=== PATIENT | male | born 1935 ===

== ENCOUNTER 2016-11-13 14:03 | Inpatient (IN) | payer MEDICARE, OTHER ==
--- NOTE | 2016-11-13 14:34 | ED PDOC ---
HPI: Abdomen Time Seen by Provider: 11/13/16 14:25 Chief Complaint (Nursing): Abdominal Pain Chief Complaint (Provider): Abdominal Pain History Per: Patient History/Exam Limitations: no limitations Onset/Duration Of Symptoms: Days Current Symptoms Are (Timing): Still Present Severity: Moderate Location Of Pain/Discomfort: Diffuse Quality Of Discomfort: "Pain" Associated Symptoms: Diarrhea, Urinary Symptoms Exacerbating Factors: None Additional Complaint(s): Patient is a 81 year old male brought to ED by family for evaluation of urinary retention and diarrhea for 2-3 days. As per daughter at bedside, patient has his suprapubic catheter changed 3 days ago, after it was changed was when the symptoms began. Denies fever, chills, nausea or vomiting. Reports abdominal pain with distention, diarrhea is watery but non bloody PMD: Dr. Denney Past Medical History Reviewed: Historical Data, Nursing Documentation, Vital Signs Vital Signs: Last Vital Signs Temp 98.1 F 11/14/16 20:05 Pulse 82 11/14/16 20:05 Resp 18 11/14/16 20:05 BP 136/76 11/14/16 20:05 Pulse Ox 100 11/14/16 20:05 - Medical History PMH: HTN Other PMH: Urinary retention - Surgical History Surgical History: Appendectomy, Cholecystectomy, Pacemaker Other surgeries: open heart - Family History Family History: States: No Known Family Hx - Living Arrangements Living Arrangements: With Family - Home Medications Home Medications: Ambulatory Orders Medication Instructions Recorded ALPRAZolam [Xanax] 1 mg PO BID PRN 11/13/16 Albuterol HFA [Ventolin HFA 90 2 puff IH Q4H PRN 11/13/16 mcg/actuation (8 g)] Albuterol/Ipratropium [Duoneb 3 3 ml IH Q6H PRN 11/13/16 mg/0.5 mg (3 ml) UD] Aspirin [Ecotrin] 81 mg PO DAILY 11/13/16 Atorvastatin [Lipitor] 20 mg PO HS 11/13/16 DULoxetine [Cymbalta] 30 mg PO DAILY 11/13/16 Folic Acid [Folic Acid] 1 mg PO DAILY 11/13/16 Lactobacillus Combination No.8 1 cap PO DAILY 11/13/16 [Adult Probiotic] Memantine HCl [Namenda Xr] 28 mg PO DAILY 11/13/16 Metoprolol Succinate [Metoprolol 50 mg PO DAILY 11/13/16 Succinate] Nitroglycerin 0.2 mg/hr [Nitro-Dur 1 patch TD DAILY 11/13/16 0.2 mg/hr Patch] Tamsulosin [Flomax] 0.4 mg PO HS 11/13/16 metroNIDAZOLE [Flagyl] 500 mg PO Q8H 11/13/16 - Allergies Allergies/Adverse Reactions: Allergies Allergy/AdvReac Type Severity Reaction Status Date / Time Penicillins Allergy Verified 11/13/16 14:44 Review of Systems ROS Statement: Except As Marked, All Systems Reviewed And Found Negative Constitutional: Negative for: Fever, Chills Gastrointestinal: Positive for: Abdominal Pain, Diarrhea. Negative for: Nausea , Vomiting Physical Exam - Reviewed Nursing Documentation Reviewed: Yes Vital Signs Reviewed: Yes - Physical Exam Appears: Positive for: Non-toxic, No Acute Distress Skin: Positive for: Normal Color, Warm Eye Exam: Positive for: Normal appearance Neck: Positive for: Normal, Painless ROM Cardiovascular/Chest: Positive for: Regular Rate, Rhythm. Negative for: Murmur Respiratory: Positive for: Normal Breath Sounds. Negative for: Respiratory Distress Gastrointestinal/Abdominal: Positive for: Tenderness (suprapubic), Distended ( mild), Other (Suprapubic cathetor in place) Back: Positive for: Normal Inspection Extremity: Positive for: Normal ROM Neurologic/Psych: Positive for: Alert, Oriented - Laboratory Results Result Diagrams: 11/14/16 06:05 11/14/16 06:05 - ECG O2 Sat by Pulse Oximetry: 100 (RA) Pulse Ox Interpretation: Normal Medical Decision Making Medical Decision Making: Time: 1430 Initial impression: Urinary retention, Catheter dislodgment. Diarrhea r/o colitis and diverticulitis Initial plan: -- CT-abdomen -- CMP -- Urine dip -- CBC -- NSF and Morphine -- Garza Cath change Time: 1500 Patient to be signed out by Dr. Amador pending CT, labs and catheter replacement. Scribe Attestation: Documented by Daylin Trinh acting as a scribe for Panchito Boswell MD MD Scribe Attestation: All medical record entries made by the Scribe were at my direction and personally dictated by me. I have reviewed the chart and agree that the record accurately reflects my personal performance of the history, physical exam, medical decision making, and the department course for this patient. I have also personally directed, reviewed, and agree with the discharge instructions and disposition. Disposition - Clinical Impression Clinical Impression: Colitis, Dehydration, UTI (urinary tract infection), Urinary retention - Patient ED Disposition Is Patient to be Admitted: Transfer of Care - Disposition Disposition: Transfer of Care Disposition Time: 15:00 Condition: FAIR Patient Signed Over To: Roxana Amador Handoff Comments: pending CT abd, labs, and final disposition
[2016-11-13] MEDS ORDERED: Iohexol 240 (50 ml) PO ONE (14:54)
[2016-11-13] MEDS ORDERED: Sodium Chloride 0.9% 1,000 ML IV STA ×2 (14:55→19:30)
--- NOTE | 2016-11-13 15:19 | ED PDOC ---
- Laboratory Results Result Diagrams: 11/13/16 15:10 11/13/16 15:10 - ECG O2 Sat by Pulse Oximetry: 100 (RA) Medical Decision Making Medical Decision Making: Time: 1500 Patient signed out by Dr. Flanagan pending ED work up and disposition. UA demonstrates nitrates, ketones, large leuks. Pending CT. Accession No. : [id number] Patient Name / ID : HALEY ENAMORADO / [id number] Exam Date : 11/13/2016 17:36:45 ( Approved ) Study Comment : Sex / Age : M / [id number] Creator : Boom Godwin MD Dictator : Boom Godwin MD Equal Opportunity Assistant : Mathematical Statistician : Boom Godwin MD Approver2 : Report Date : 11/13/2016 18:28:32 My Comment : PROCEDURE: CT Abdomen and Pelvis with contrast HISTORY: abdominal pain diarrhea COMPARISON: None. TECHNIQUE: Contrast dose: 90 cc of Omni 300 Radiation dose: Total exam DLP = 569 mGy-cm. This CT exam was performed using one or more of the following dose reduction techniques: Automated exposure control, adjustment of the mA and/or kV according to patient size, and/or use of iterative reconstruction technique. FINDINGS: LOWER THORAX: Moderate size left effusion LIVER: Multiple cysts are seen in the liver. GALLBLADDER AND BILE DUCTS: Gallbladder removed PANCREAS: Unremarkable. No gross lesion or ductal dilatation. SPLEEN: Unremarkable. ADRENALS: Unremarkable. No mass. KIDNEYS AND URETERS: Unremarkable. No hydronephrosis. No solid mass. VASCULATURE: Unremarkable. No aortic aneurysm. BOWEL: There is mural thickening and edema in the bowel wall of the descending and sigmoid colon consistent with colitis. The transverse and ascending colon are unremarkable. Findings are most severe in the sigmoid and rectum. APPENDIX: Normal appendix. PERITONEUM: Unremarkable. No free fluid. No free air. LYMPH NODES: Unremarkable. No enlarged lymph nodes. BLADDER: There is a balloon tipped suprapubic catheter in the bladder. REPRODUCTIVE: Unremarkable. BONES: No acute fracture. OTHER FINDINGS: None. IMPRESSION: Moderate to severe colitis involving the left side of the colon DW family findings and plan of care. Pt has h/o episodes of c diff colitis over that last few months. Will take course of antibiotics and get better, but then symptoms return. Previous hospitalizations have been in [facility]. Pt scheduled for surgery with Dr York Thursday and had urinary cath issue, which is why they presented here. DW family findings and need for hospitalization given extensive radiologic findings of colitis. Scribe Attestation: Documented by Daylin Trinh acting as a scribe for Roxana Amador MD MD Scribe Attestation: All medical record entries made by the Scribe were at my direction and personally dictated by me. I have reviewed the chart and agree that the record accurately reflects my personal performance of the history, physical exam, medical decision making, and the department course for this patient. I have also personally directed, reviewed, and agree with the discharge instructions and disposition. Disposition Discussed With DrMilo: Yash Mccloud Comment: Covering for PMD Doctor Will See Patient In The: Hospital Counseled Patient/Family Regarding: Studies Performed, Diagnosis - Clinical Impression Clinical Impression: Colitis, Dehydration, UTI (urinary tract infection), Urinary retention - POA Present On Arrival: None - Disposition Disposition: Admitted as In-Patient Disposition Time: 18:45 Condition: SERIOUS
[2016-11-13] MEDS ORDERED: Iohexol 240 (50 ml) ONE (15:20)
[2016-11-13 15:41] LABS: BASO % 0.3 % (0.0-2.0); EOS # 0.1 K/uL (0.0-0.7); EOS % 1.4 % (0.0-4.0); HEMATOCRIT 42.6 % (35.0-51.0); LYMPH % 10.1 % (20.0-40.0); MEAN CELL VOLUME 93.5 fl (80.0-94.0); MEAN CORPUSCULAR HEMOGLOBIN 30.2 pg (27.0-31.0); MEAN CORPUSCULAR HGB CONC 32.3 g/dL (33.0-37.0); MEAN PLATELET VOLUME 8.9 fl (7.2-11.7); MONO # 0.6 K/uL (0.0-0.8); NEUT # 8.1 K/uL (1.8-7.0); NEUT % 82.2 % (50.0-75.0); RED CELL DISTRIBUTION WIDTH 15.6 % (11.5-14.5); WHITE BLOOD COUNT 9.9 K/uL (4.8-10.8)
[2016-11-13 15:45] LABS: ALKALINE PHOSPHATASE 104 U/L (38-126); ALT/SGPT 12 U/L (21-72); AST/SGOT 22 U/L (17-59); BILIRUBIN,TOTAL 0.8 mg/dl (0.2-1.3); BLOOD UREA NITROGEN 11 mg/dl (9-20); CALCIUM 8.9 mg/dL (8.4-10.2); CARBON DIOXIDE 24 mmol/L (22-30); CHLORIDE 104 mmol/L (98-107); GFR AFRICAN-AMERICAN > 60; GLUCOSE,RANDOM 110 mg/dL (75-110); POTASSIUM 3.7 MMOL/L (3.6-5.0); SODIUM 143 mmol/l (132-148); TOTAL PROTEIN 7.1 G/DL (6.3-8.2)
[2016-11-13] MEDS ORDERED: Iohexol 300 100 ML IJ ONE (17:21)
[2016-11-13] MEDS ORDERED: Sodium Chloride 0.9% 50 ML IV ONE (17:21)
[2016-11-13 17:28] LABS: RBC URINE 2584 /hpf (0-3); URINE BACTERIA OCC (<OCC); URINE BILIRUBIN NEGATIVE (NEGATIVE); URINE BLOOD LARGE (NEGATIVE); URINE COLOR AMBER (YELLOW); URINE GLUCOSE (UA) NEG (Normal); URINE KETONE TRACE mg/dL (NEGATIVE); URINE LEUKOCYTE ESTERASE MOD Leu/uL (Negative); URINE PROTEIN 100 mg/dL (NEGATIVE); URINE UROBILINOGEN 0.2-1.0 mg/dL (0.2-1.0); WBC URINE 434 /hpf (0-5)
[2016-11-13] MEDS ORDERED: Ciprofloxacin 400mg/200ml D5W 200 ML IV STA (17:36)
[2016-11-13] MEDS ORDERED: metroNIDAZOLE 500mg/100ml NS 100 ML IVPB STA (17:37)
--- NOTE | 2016-11-13 18:30 | CT ---
PROCEDURE: CT Abdomen and Pelvis with contrast HISTORY: abdominal pain diarrhea COMPARISON: None. TECHNIQUE: Contrast dose: 90 cc of Omni 300 Radiation dose: Total exam DLP = 569 mGy-cm. This CT exam was performed using one or more of the following dose reduction techniques: Automated exposure control, adjustment of the mA and/or kV according to patient size, and/or use of iterative reconstruction technique. FINDINGS: LOWER THORAX: Moderate size left effusion LIVER: Multiple cysts are seen in the liver. GALLBLADDER AND BILE DUCTS: Gallbladder removed PANCREAS: Unremarkable. No gross lesion or ductal dilatation. SPLEEN: Unremarkable. ADRENALS: Unremarkable. No mass. KIDNEYS AND URETERS: Unremarkable. No hydronephrosis. No solid mass. VASCULATURE: Unremarkable. No aortic aneurysm. BOWEL: There is mural thickening and edema in the bowel wall of the descending and sigmoid colon consistent with colitis. The transverse and ascending colon are unremarkable. Findings are most severe in the sigmoid and rectum. APPENDIX: Normal appendix. PERITONEUM: Unremarkable. No free fluid. No free air. LYMPH NODES: Unremarkable. No enlarged lymph nodes. BLADDER: There is a balloon tipped suprapubic catheter in the bladder. REPRODUCTIVE: Unremarkable. BONES: No acute fracture. OTHER FINDINGS: None. IMPRESSION: Moderate to severe colitis involving the left side of the colon
[2016-11-13] MEDS ORDERED: metroNIDAZOLE 500mg/100ml NS 0 ML IVPB ONE (18:42)
[2016-11-13] MEDS ORDERED: Ciprofloxacin 400mg/200ml D5W 200 ML IVPB ONE (18:42)
[2016-11-13] MEDS ORDERED: metroNIDAZOLE 500mg/100ml NS 100 ML IVPB ONE (19:59)
[2016-11-13] MEDS ORDERED: Dextrose 5%/Lactated Ringer's 1,000 ML IV SCH (22:00)
[2016-11-13] MEDS ORDERED: DiphenhydrAMINE 50 mg/ml Inj IVP PRN (22:00)
[2016-11-14] MEDS: metroNIDAZOLE 500mg/100ml NS 100 ML IVPB SCH ×3 (04:20→20:20)
[2016-11-14 07:45] LABS: HEMATOCRIT 37.1 % (35.0-51.0); MEAN CORPUSCULAR HEMOGLOBIN 30.4 pg (27.0-31.0); MEAN CORPUSCULAR HGB CONC 33.4 g/dL (33.0-37.0); RED CELL DISTRIBUTION WIDTH 14.9 % (11.5-14.5); WHITE BLOOD COUNT 6.1 K/uL (4.8-10.8)
[2016-11-14 07:51] LABS: ALB/GLOB RATIO 0.9 (1.0-2.1); ALKALINE PHOSPHATASE 86 U/L (38-126); ALT/SGPT 14 U/L (21-72); AST/SGOT 18 U/L (17-59); BILIRUBIN,TOTAL 0.5 mg/dl (0.2-1.3); BLOOD UREA NITROGEN 7 mg/dl (9-20); CALCIUM 8.1 mg/dL (8.4-10.2); CARBON DIOXIDE 22 mmol/L (22-30); CHLORIDE 108 mmol/L (98-107); GFR AFRICAN-AMERICAN > 60; GLUCOSE,RANDOM 99 mg/dL (75-110); SODIUM 141 mmol/l (132-148); TOTAL PROTEIN 5.8 G/DL (6.3-8.2)
[2016-11-14 08:03] LABS: MEAN CELL VOLUME 90.9 fl (80.0-94.0)
[2016-11-14] MEDS: Ciprofloxacin 400mg/200ml D5W 200 ML IVPB SCH ×2 (09:21→20:20)
[2016-11-14] MEDS ORDERED: Potassium Chl 20 mEq in D5-NS 1,000 ML IV SCH (09:30)
[2016-11-14] MEDS ORDERED: D5W IV SCH (09:33)
[2016-11-14] MEDS ORDERED: DEXTROSE IV SCH (09:33)
[2016-11-14] MEDS ORDERED: NS IV SCH (09:33)
[2016-11-14] MEDS ORDERED: POTASSIUM CH IV SCH (09:33)
--- NOTE | 2016-11-14 10:05 | CP.PCM.HP ---
<Renee Ho - Last Filed: 11/14/16 20:39> History of Present Illness - History of Present Illness History of Present Illness: 81M seen and examined at bedside with attending. Pt was admitted overnight for colitis. Pt evaluated this morning and history provided by patient as well as daughter. He developed mild loose stool mixed with mucous about 3-4 days ago and then began having abdominal pain "everywhere " with associated "feeling full" but denies any fevers, chills, nausea, vomiting. As per pt he has had some shortness of breath and states he had formed stool overnight. As per daughter he was recently treated for pneumonia. He has had multiple episodes of c. diff and has an extensive cardiac history. Recently had suprapubic catheter placed and has scheduled prostate surgery 11/[address] York. As per PMD, Dr Brown, recently c. diff was positive as well as hemoccult blood. overnight: confused and pulled suprapubic catheter PMD: Dr Brown Urologist: Dr York PMH: DVT, HTN, HLD, mild dementia, hard of hearing PSH: CABG, IVC, AICD Lives with Current smoker ED COURSE afebrile, tachycardic, tachypneic CT abd/pelvis: no free air, LLL pleural effusion, multiple liver cysts, thickened sigmoid/rectum c. diff- NEG CBC: no anemia/leukocytosis, but left shift CMP: WNL UA: Nitrate+, Many RBCs, WBC+, Bacteria+, Yeast+ Present on Admission - Present on Admission Any Indicators Present on Admission: Yes History of DVT/PE: Yes History of Uncontrolled Diabetes: No Urinary Catheter: Yes Decubitus Ulcer Present: No Review of Systems - Review of Systems Review of Systems: As per HPI Past Patient History - Infectious Disease Hx of Infectious Diseases: None - Past Medical History & Family History Past Medical History?: Yes - Past Social History Smoking Status: Heavy Smoker > 10 Cigarettes Daily - CARDIAC Hx Cardiac Disorders: Yes Hx Hypertension: Yes Other/Comment: hyperlipidemia - PULMONARY Hx Respiratory Disorders: Yes Hx Pneumonia: Yes - NEUROLOGICAL Hx Neurological Disorder: Yes Hx Dementia: Yes - RENAL Hx Chronic Kidney Disease: No - ENDOCRINE/METABOLIC Hx Endocrine Disorders: No - HEMATOLOGICAL/ONCOLOGICAL Hx Blood Disorders: Yes Hx Shingles: Yes - INTEGUMENTARY Hx Dermatological Problems: No - MUSCULOSKELETAL/RHEUMATOLOGICAL Hx Musculoskeletal Disorders: Yes Hx Falls: Yes - GASTROINTESTINAL Hx Gastrointestinal Disorders: No - GENITOURINARY/GYNECOLOGICAL Hx Genitourinary Disorders: Yes Hx Prostate Problems: Yes Hx Urinary Tract Infection: Yes Other/Comment: Urinary retention - PSYCHIATRIC Hx Psychophysiologic Disorder: No Hx Substance Use: No - SURGICAL HISTORY Hx Surgeries: Yes Hx Angioplasty: Yes Hx Appendectomy: Yes Hx Cholecystectomy: Yes Hx Coronary Artery Bypass Graft: Yes Hx Open Heart Surgery: Yes - ANESTHESIA Hx Anesthesia: Yes Hx Anesthesia Reactions: No Meds Allergies/Adverse Reactions: Allergies Allergy/AdvReac Type Severity Reaction Status Date / Time Penicillins Allergy Verified 11/13/16 14:44 Physical Exam - Constitutional Appears: Non-toxic, No Acute Distress - Head Exam Head Exam: ATRAUMATIC, NORMAL INSPECTION - Eye Exam Eye Exam: EOMI, Normal appearance - ENT Exam ENT Exam: Mucous Membranes Dry, Normal Exam - Neck Exam Neck exam: Positive for: Full Rom, Normal Inspection - Respiratory Exam Respiratory Exam: Decreased Breath Sounds (Left base), Rhonchi (diffuse but primarily DEBBIE), NORMAL BREATHING PATTERN. absent: Wheezes - Cardiovascular Exam Cardiovascular Exam: REGULAR RHYTHM. absent: JVD - GI/Abdominal Exam GI & Abdominal Exam: Guarding (voluntary), Soft, Tenderness (diffusely ttp throughout) - Exam Exam: absent: NORMAL INSPECTION (suprapubic site patent, tube had been inadvertently removed) - Extremities Exam Extremities exam: Positive for: full ROM, normal capillary refill, pedal pulses present (Rt-2+, Lt-1+). Negative for: pedal edema - Neurological Exam Neurological exam: Alert - Psychiatric Exam Psychiatric exam: Normal Affect, Normal Mood - Skin Skin Exam: Dry, Warm Results - Vital Signs Recent Vital Signs: Last Vital Signs Temp 36.9 C 11/14/16 07:31 Pulse 75 11/14/16 07:31 Resp 20 11/14/16 07:31 BP 122/76 11/14/16 07:31 Pulse Ox 97 11/14/16 07:31 - Labs Result Diagrams: 11/14/16 06:05 11/14/16 06:05 Labs: Laboratory Results - last 24 hr 11/13/16 11/13/16 11/14/16 19:10 19:36 06:05 WBC 6.1 RBC 4.08 L Hgb 12.4 Hct 37.1 MCV 90.9 D MCH 30.4 MCHC 33.4 RDW 14.9 H Plt Count 149 Sodium 141 Potassium 3.0 L Chloride 108 H Carbon Dioxide 22 Anion Gap 14 BUN 7 L Creatinine 0.8 Est GFR ( Amer) > 60 Est GFR (Non-Af Amer) > 60 Random Glucose 99 Lactic Acid 2.1 Calcium 8.1 L Total Bilirubin 0.5 AST 18 ALT 14 L Alkaline Phosphatase 86 Total Protein 5.8 L Albumin 2.7 L D Globulin 3.1 Albumin/Globulin Ratio 0.9 L C. difficile Ag & Toxin Negative Assessment & Plan (1) Colitis Assessment and Plan: Recurrent non-resolving c. diff infection likely the cause for "negative" c. diff results as patient was taking Flagyl. Non-peritoneal but diffusely ttp. Depending on how many episodes may want to consider more aggressive measures for eradication. - GI Consult (Dr Pickering) appreciated - NPO EXCEPT medications - Maintenance IVF - Vancomycin 125mg, PO, Q6H - Questron 4g, PO, Daily - Repeat c.diff testing 2x more - Will consider d/c of Cipro if strictly 2/2 inadequate c. diff eradication - Pain control Status: Acute (2) Pleural effusion on left Assessment and Plan: Noted on abd/pelvis CT, followed up with non-con CT chest which showed large LEFT pleural effusion with compressive atelectasis and bullous emphysema. - Pulmonary Consult (Dr Beltre) appreciated - IR consult for Thoracentesis early next week - Oxygen to maintain SpO2 > 90% (significant cardiac hx) Status: Acute Priority: High (3) UTI (urinary tract infection) Assessment and Plan: Unclear whether this is colonization vs. active infection. Patient currently on Cipro so will follow up on CFUs and adjust accordingly. - c/w Cipro as bystander abx, adjust as appropriate - f/u UCx - Trend fever curve as applicable Status: Acute (4) DVT prophylaxis Assessment and Plan: Pt high risk and has IVC, however placed on prophylaxis. - Heparin 5,000U, SC, Q8H Status: Acute (5) CAD (coronary artery disease) Assessment and Plan: Hx CABG, AICD, asymptomatic. Ordered EKG as none available to provide baseline - c/w Statin 20mg, PO, qHS - c/w Nitro TD Daily - Lopressor 50mg, PO, Q12H - f/u EKG Status: Chronic (6) COPD (chronic obstructive pulmonary disease) Assessment and Plan: Current every day heavy smoker, CT showing bullous emphysema. - c/w DuoNebs - c/w Ventolin Status: Chronic (7) Dementia Assessment and Plan: Appears to be very mild with some forgetfulness - c/w Cymbalta - c/w Namenda Status: Chronic (8) BPH (benign prostatic hypertrophy) Assessment and Plan: Requiring suprapubic catheter, scheduled for TURP(?) 11/[address] York. - Urology Consult (Dr York) appreciated: replaced suprapubic catheter - c/w FloMax Status: Chronic <Yash Mccloud - Last Filed: 11/16/16 23:01> Results - Vital Signs Recent Vital Signs: Last Vital Signs Temp 97.3 F L 11/16/16 16:51 Pulse 73 11/16/16 16:51 Resp 18 11/16/16 16:51 BP 120/58 L 11/16/16 16:51 Pulse Ox 96 11/16/16 16:51 - Labs Result Diagrams: 11/15/16 05:30 11/15/16 05:30 Assessment & Plan - Assessment and Plan (Free Text) Plan: I was present during the evaluation and personally examined the patient and discussed the plans and management with Dr Ho. Yash Mccloud M.D.
[2016-11-14] MEDS: Potassium CL 10 MEQ/50 ML 50 ML IVPB SCH ×4 (10:36→16:51)
--- NOTE | 2016-11-14 12:49 | CP.PCM.CON ---
History of Present Illness - History of Present Illness History of Present Illness: This 81 year old male, a current cigarette smoker, was admitted with abdominal pain and found to have a left sided pleural effusion with LLL basal consolidation on a CT that was done of the abdomen. He does have a cough according to his daughter with mild SOB. he denies any chest pain or sputum production. He did have an episode of pneumonia recently that was treated without complications. There has been no documented fever or chills, but he does complain of fatigue. Past Patient History - Infectious Disease Hx of Infectious Diseases: None - Past Medical History & Family History Past Medical History?: Yes - Past Social History Smoking Status: Heavy Smoker > 10 Cigarettes Daily Chewing Tobacco Use: No Cigar Use: No Alcohol: None Drugs: Denies Home Situation {Lives}: With Family - CARDIAC Hx Cardiac Disorders: Yes Hx Hypertension: Yes Other/Comment: hyperlipidemia - PULMONARY Hx Respiratory Disorders: Yes Hx Pneumonia: Yes - NEUROLOGICAL Hx Neurological Disorder: Yes Hx Dementia: Yes - RENAL Hx Chronic Kidney Disease: No - ENDOCRINE/METABOLIC Hx Endocrine Disorders: No - HEMATOLOGICAL/ONCOLOGICAL Hx Blood Disorders: Yes Hx Shingles: Yes - INTEGUMENTARY Hx Dermatological Problems: No - MUSCULOSKELETAL/RHEUMATOLOGICAL Hx Musculoskeletal Disorders: Yes Hx Falls: Yes - GASTROINTESTINAL Hx Gastrointestinal Disorders: No - GENITOURINARY/GYNECOLOGICAL Hx Genitourinary Disorders: Yes Hx Prostate Problems: Yes Hx Urinary Tract Infection: Yes Other/Comment: Urinary retention - PSYCHIATRIC Hx Psychophysiologic Disorder: No Hx Substance Use: No - SURGICAL HISTORY Hx Surgeries: Yes Hx Angioplasty: Yes Hx Appendectomy: Yes Hx Cholecystectomy: Yes Hx Coronary Artery Bypass Graft: Yes Hx Open Heart Surgery: Yes - ANESTHESIA Hx Anesthesia: Yes Hx Anesthesia Reactions: No Meds Allergies/Adverse Reactions: Allergies Allergy/AdvReac Type Severity Reaction Status Date / Time Penicillins Allergy Verified 11/13/16 14:44 - Medications Medications: Current Medications Cholestyramine Resin (Questran) 4 gm PO DAILY [facility] Heparin Sodium (Porcine) (Heparin) 5,000 units SC Q8 MICHELLE PRN Reason: Protocol Last Admin: 11/14/16 10:37 Dose: 5,000 units Ciprofloxacin (Cipro 400mg/200ml Dsw) 200 mls @ 200 mls/hr IVPB Q12 MICHELLE Last Admin: 11/14/16 09:21 Dose: 200 mls/hr Metronidazole (Flagyl 500mg/100ml Ns) 100 mls @ 100 mls/hr IVPB Q8H [facility] Last Admin: 11/14/16 04:20 Dose: 100 mls/hr Potassium Chloride (Potassium Cl 10meq/50ml Sterile Water) 50 mls @ 50 mls/hr IVPB Q1 [facility] Stop: 11/14/16 13:59 Last Admin: 11/14/16 10:36 Dose: 50 mls/hr Potassium Chloride/Dextrose 20 (ml/ Dextrose/Sodium Chloride) 1,020 mls @ 100 mls/hr IV .[id number] [facility] Morphine Sulfate (Morphine) 4 mg IVP Q4 PRN PRN Reason: Pain, moderate (4-7) Pantoprazole Sodium (Protonix Inj) 40 mg IVP DAILY [facility] Last Admin: 11/14/16 09:22 Dose: 40 mg Vancomycin HCl (Vancocin (Oral/Rectal Use)) 250 mg PO Q6H [facility] Physical Exam - Additional Findings Additional findings: Well nourished, well developed, appears comfortable at rest. No cyanosis or dependant edema. No calf tenderness. Neck is supple and trachea midline. No visible JVD. Pharynx is pink and moist. No palpable neck or axillary adenopathy. Dullness noted on percussion of the left lung base with absent VTF in the same area. Breath sounds are absent in the left base, a pleural rub is auscultated on the left lower, lateral chest. No bronchial breath sounds or wheezing. few sonorous rhonchi in LLL. few medium rales. PPM in left upper anterior chest wall. Heart sounds seem distant and rhythm regular. Abdomen appears distended and tender to palpation. Results - Vital Signs Recent Vital Signs: Last Vital Signs Temp 98.4 F 11/14/16 07:31 Pulse 75 11/14/16 07:31 Resp 20 11/14/16 07:31 BP 122/76 11/14/16 07:31 Pulse Ox 97 11/14/16 07:31 - Labs Result Diagrams: 11/14/16 06:05 11/14/16 06:05 Labs: Laboratory Results - last 24 hr 11/13/16 11/13/16 11/14/16 19:10 19:36 06:05 WBC 6.1 RBC 4.08 L Hgb 12.4 Hct 37.1 MCV 90.9 D MCH 30.4 MCHC 33.4 RDW 14.9 H Plt Count 149 ESR 42 H APTT Sodium 141 Potassium 3.0 L Chloride 108 H Carbon Dioxide 22 Anion Gap 14 BUN 7 L Creatinine 0.8 Est GFR ( Amer) > 60 Est GFR (Non-Af Amer) > 60 Random Glucose 99 Lactic Acid 2.1 Calcium 8.1 L Total Bilirubin 0.5 AST 18 ALT 14 L Alkaline Phosphatase 86 Total Protein 5.8 L Albumin 2.7 L D Globulin 3.1 Albumin/Globulin Ratio 0.9 L C. difficile Ag & Toxin Negative 11/14/16 09:56 WBC RBC Hgb Hct MCV MCH MCHC RDW Plt Count ESR APTT 33.9 H Sodium Potassium Chloride Carbon Dioxide Anion Gap BUN Creatinine Est GFR ( Amer) Est GFR (Non-Af Amer) Random Glucose Lactic Acid Calcium Total Bilirubin AST ALT Alkaline Phosphatase Total Protein Albumin Globulin Albumin/Globulin Ratio C. difficile Ag & Toxin Assessment & Plan (1) Pleural effusion on left Status: Acute Priority: High (2) Pulmonary infiltrate present on computed tomography Status: Acute Priority: High - Assessment and Plan (Free Text) Plan: CT w/o contrast of the chest to determine extent of effusion and infiltrate. Agree with present antibiotic regimen. Will request thoracentesis if effusion is moderate. - Date & Time Date: 11/14/16 Time: 12:56
[2016-11-14] MEDS: Cholestyramine 4 gm/Pkt UD PO SCH (13:05)
[2016-11-14] MEDS: Vancomycin 500 mg (Oral/Rectal USE) PO SCH ×3 (13:09→23:38)
--- NOTE | 2016-11-14 15:56 | CT ---
PROCEDURE: CT Chest without contrast HISTORY: LEFT pleural effusion COMPARISON: None. TECHNIQUE: Contiguous axial images were obtained through the chest without intravenous contrast enhancement. Sagittal and coronal reconstructions were performed. Radiation dose (DLP): 368 mGy-cm. This CT exam was performed using one or more of the following dose reduction techniques: Automated exposure control, adjustment of the mA and/or kV according to patient size, and/or use of iterative reconstruction technique. FINDINGS: LUNGS: Large left pleural effusion with mild compressive atelectasis at the left base. Bullous emphysema. MEDIASTINUM: Unremarkable thoracic aorta. No aneurysm. Normal sized heart. Main pulmonary artery unremarkable. No vascular congestion. No lymphadenopathy. Pacemaker and leads in place. PLEURA: See above. BONES: No fracture. No destructive lesion. UPPER ABDOMEN: Multiple hepatic cysts. OTHER FINDINGS: None. IMPRESSION: Large left pleural effusion with mild compressive atelectasis at the left base.
--- NOTE | 2016-11-14 15:58 | RAD ---
HISTORY: Left pleural effusion COMPARISON: No prior. TECHNIQUE: Chest PA and lateral FINDINGS: LUNGS: There is linear scarring in the right upper lobe. There is no focal consolidation. There is left lower lobe airspace disease. PLEURA: There is a moderate left pleural effusion. There is no pneumothorax or large right pleural effusion. CARDIOVASCULAR: The heart is normal in size. Status post CABG. There is a left-sided transvenous permanent pacing device. Atherosclerotic aortic arch calcifications are present. OSSEOUS STRUCTURES: No significant abnormalities. VISUALIZED UPPER ABDOMEN: Normal. OTHER FINDINGS: None. IMPRESSION: Moderate left pleural effusion. Underlying pneumonia cannot be excluded. Follow-up PA and lateral radiographs are recommended.
[2016-11-14] MEDS: Potassium Chl 20 mEq in D5-NS 1,000 ML IV SCH (16:45)
[2016-11-14] MEDS ORDERED: Albuterol-Ipratrop 3 mg / 0.5 (3 ml) UD IH PRN (17:43)
[2016-11-14] MEDS ORDERED: Albuterol HFA 90 mcg/actuation (8 g) IH PRN (17:43)
--- NOTE | 2016-11-14 19:21 | CP.PCM.CON ---
History of Present Illness - History of Present Illness History of Present Illness: 81 yo male admitted with midabdominal pain and abnormal CT Review of Systems - Constitutional Constitutional: Chills - EENT Eyes: absent: Blurred Vision Ears: absent: Decreased Hearing - Cardiovascular Cardiovascular: absent: Chest Pain - Respiratory Respiratory: absent: Dyspnea - Gastrointestinal Gastrointestinal: As Per HPI Past Patient History - Infectious Disease Hx of Infectious Diseases: None - Past Medical History & Family History Past Medical History?: Yes - Past Social History Smoking Status: Heavy Smoker > 10 Cigarettes Daily Chewing Tobacco Use: No Cigar Use: No Alcohol: None Drugs: Denies Home Situation {Lives}: With Family - CARDIAC Hx Cardiac Disorders: Yes Hx Hypertension: Yes Other/Comment: hyperlipidemia - PULMONARY Hx Respiratory Disorders: Yes Hx Pneumonia: Yes - NEUROLOGICAL Hx Neurological Disorder: Yes Hx Dementia: Yes - RENAL Hx Chronic Kidney Disease: No - ENDOCRINE/METABOLIC Hx Endocrine Disorders: No - HEMATOLOGICAL/ONCOLOGICAL Hx Blood Disorders: Yes Hx Shingles: Yes - INTEGUMENTARY Hx Dermatological Problems: No - MUSCULOSKELETAL/RHEUMATOLOGICAL Hx Musculoskeletal Disorders: Yes Hx Falls: Yes - GASTROINTESTINAL Hx Gastrointestinal Disorders: No - GENITOURINARY/GYNECOLOGICAL Hx Genitourinary Disorders: Yes Hx Prostate Problems: Yes Hx Urinary Tract Infection: Yes Other/Comment: Urinary retention - PSYCHIATRIC Hx Psychophysiologic Disorder: No Hx Substance Use: No - SURGICAL HISTORY Hx Surgeries: Yes Hx Angioplasty: Yes Hx Appendectomy: Yes Hx Cholecystectomy: Yes Hx Coronary Artery Bypass Graft: Yes Hx Open Heart Surgery: Yes - ANESTHESIA Hx Anesthesia: Yes Hx Anesthesia Reactions: No Meds Allergies/Adverse Reactions: Allergies Allergy/AdvReac Type Severity Reaction Status Date / Time Penicillins Allergy Verified 11/13/16 14:44 - Medications Medications: Current Medications Albuterol (Ventolin Hfa 90 Mcg/Actuation (8 G)) 2 puff IH Q4H PRN PRN Reason: Shortness of Breath Albuterol/Ipratropium (Duoneb 3 Mg/0.5 Mg (3 Ml) Ud) 3 ml IH RQ6 PRN PRN Reason: Shortness of Breath Aspirin (Ecotrin) 81 mg PO DAILY [facility] Atorvastatin Calcium (Lipitor) 20 mg PO HS [facility] Cholestyramine Resin (Questran) 4 gm PO DAILY [facility] Last Admin: 11/14/16 13:05 Dose: 4 gm Duloxetine HCl (Cymbalta) 30 mg PO DAILY [facility] Folic Acid (Folic Acid) 1 mg PO DAILY [facility] Heparin Sodium (Porcine) (Heparin) 5,000 units SC Q8 MCIHELLE PRN Reason: Protocol Last Admin: 11/14/16 16:45 Dose: 5,000 units Home Med (Memantine Hcl [Namenda Xr]) 28 mg PO DAILY [facility] Ciprofloxacin (Cipro 400mg/200ml Dsw) 200 mls @ 200 mls/hr IVPB Q12 [facility] Last Admin: 11/14/16 09:21 Dose: 200 mls/hr Metronidazole (Flagyl 500mg/100ml Ns) 100 mls @ 100 mls/hr IVPB Q8H [facility] Last Admin: 11/14/16 18:44 Dose: 100 mls/hr Potassium Chloride/Dextrose/Sod Cl (Potassium Chl 20 Meq In D5-Ns) 1,000 mls @ 100 mls/hr IV .Q10H [facility] Stop: 11/15/16 17:01 Last Admin: 11/14/16 16:45 Dose: 100 mls/hr Metoprolol Succinate (Toprol Xl) 50 mg PO DAILY [facility] Morphine Sulfate (Morphine) 4 mg IVP Q4 PRN PRN Reason: Pain, moderate (4-7) Nitroglycerin (Nitro-Dur 0.2 Mg/Hr Patch) 1 patch TD DAILY [facility] Pantoprazole Sodium (Protonix Inj) 40 mg IVP DAILY [facility] Last Admin: 11/14/16 09:22 Dose: 40 mg Tamsulosin HCl (Flomax) 0.4 mg PO HS [facility] Vancomycin HCl (Vancocin (Oral/Rectal Use)) 250 mg PO Q6H [facility] Last Admin: 11/14/16 17:00 Dose: 250 mg Physical Exam - Constitutional Appears: Well - Head Exam Head Exam: ATRAUMATIC - Eye Exam Eye Exam: EOMI - ENT Exam ENT Exam: Mucous Membranes Moist - Respiratory Exam Respiratory Exam: Clear to Auscultation Bilateral - Cardiovascular Exam Cardiovascular Exam: REGULAR RHYTHM - GI/Abdominal Exam GI & Abdominal Exam: Normal Bowel Sounds, Soft, Tenderness Results - Vital Signs Recent Vital Signs: Last Vital Signs Temp 98.3 F 11/14/16 16:03 Pulse 50 L 11/14/16 16:03 Resp 18 11/14/16 16:03 BP 128/61 11/14/16 17:00 Pulse Ox 100 11/14/16 16:03 - Labs Result Diagrams: 11/14/16 06:05 11/14/16 06:05 Labs: Laboratory Results - last 24 hr 11/13/16 11/13/16 11/14/16 19:10 19:36 06:05 WBC 6.1 RBC 4.08 L Hgb 12.4 Hct 37.1 MCV 90.9 D MCH 30.4 MCHC 33.4 RDW 14.9 H Plt Count 149 ESR 42 H APTT Sodium 141 Potassium 3.0 L Chloride 108 H Carbon Dioxide 22 Anion Gap 14 BUN 7 L Creatinine 0.8 Est GFR ( Amer) > 60 Est GFR (Non-Af Amer) > 60 Random Glucose 99 Lactic Acid 2.1 Calcium 8.1 L Total Bilirubin 0.5 AST 18 ALT 14 L Alkaline Phosphatase 86 Total Protein 5.8 L Albumin 2.7 L D Globulin 3.1 Albumin/Globulin Ratio 0.9 L C. difficile Ag & Toxin Negative 11/14/16 09:56 WBC RBC Hgb Hct MCV MCH MCHC RDW Plt Count ESR APTT 33.9 H Sodium Potassium Chloride Carbon Dioxide Anion Gap BUN Creatinine Est GFR ( Amer) Est GFR (Non-Af Amer) Random Glucose Lactic Acid Calcium Total Bilirubin AST ALT Alkaline Phosphatase Total Protein Albumin Globulin Albumin/Globulin Ratio C. difficile Ag & Toxin Assessment & Plan (1) Colitis Assessment and Plan: Likely infectious. Agree with cipro/flagyl Status: Acute
[2016-11-15] MEDS: Potassium Chl 20 mEq in D5-NS 1,000 ML IV SCH ×2 (04:22→13:03)
[2016-11-15] MEDS: Vancomycin 500 mg (Oral/Rectal USE) PO SCH ×4 (06:06→22:57)
[2016-11-15] MEDS: metroNIDAZOLE 500mg/100ml NS 100 ML IVPB SCH ×3 (06:09→20:33)
[2016-11-15 07:09] LABS: MEAN CELL VOLUME 92.7 fl (80.0-94.0); MEAN CORPUSCULAR HEMOGLOBIN 30.1 pg (27.0-31.0); MEAN CORPUSCULAR HGB CONC 32.4 g/dL (33.0-37.0); RED CELL DISTRIBUTION WIDTH 15.3 % (11.5-14.5); WHITE BLOOD COUNT 4.1 K/uL (4.8-10.8)
[2016-11-15 07:27] LABS: BLOOD UREA NITROGEN 4 mg/dl (9-20); CALCIUM 7.9 mg/dL (8.4-10.2); CARBON DIOXIDE 26 mmol/L (22-30); CHLORIDE 110 mmol/L (98-107); GFR AFRICAN-AMERICAN > 60; GLUCOSE,RANDOM 106 mg/dL (75-110); POTASSIUM 3.3 MMOL/L (3.6-5.0); SODIUM 145 mmol/l (132-148)
[2016-11-15] MEDS: Ciprofloxacin 400mg/200ml D5W 200 ML IVPB SCH ×2 (09:15→20:33)
[2016-11-15] MEDS: Metoprolol Succinate 50 mg XL Tab PO SCH (09:16)
[2016-11-15] MEDS: Nitroglycerin 0.2 mg/hr Top Patch TD SCH (09:16)
[2016-11-15] MEDS: Cholestyramine 4 gm/Pkt UD PO SCH (09:24)
--- NOTE | 2016-11-15 13:02 | CP.PCM.PN ---
Subjective - Date & Time of Evaluation Date of Evaluation: 11/14/16 Time of Evaluation: 13:00 - Subjective Subjective: UROLOGY called to assess patient for sudden removal of a suprapubic tube. He was moving in his bed and inadvertantly pulled out this sp tube. He has a history of acute urine retention and is scheduled for green light laser of prostate this thursday. I replaced the suprapubic tube at this time. he also has alot of diarrhea suspect c diff. If this is the case then i will postpone the procedure till he is stable Objective - Vital Signs/Intake and Output Vital Signs (last 24 hours): Temp Pulse Resp BP Pulse Ox 97.3 F L 92 H 18 126/67 95 11/15/16 08:40 11/15/16 12:41 11/15/16 08:40 11/15/16 09:16 11/15/16 12:41 - Medications Medications: Current Medications Albuterol (Ventolin Hfa 90 Mcg/Actuation (8 G)) 2 puff IH Q4H PRN PRN Reason: Shortness of Breath Albuterol/Ipratropium (Duoneb 3 Mg/0.5 Mg (3 Ml) Ud) 3 ml IH RQ6 PRN PRN Reason: Shortness of Breath Aspirin (Ecotrin) 81 mg PO DAILY [facility] Atorvastatin Calcium (Lipitor) 20 mg PO HS [facility] Last Admin: 11/14/16 21:26 Dose: 20 mg Cholestyramine Resin (Questran) 4 gm PO DAILY [facility] Last Admin: 11/15/16 09:24 Dose: 4 gm Duloxetine HCl (Cymbalta) 30 mg PO DAILY [facility] Last Admin: 11/15/16 09:17 Dose: 30 mg Folic Acid (Folic Acid) 1 mg PO DAILY [facility] Last Admin: 11/15/16 09:17 Dose: 1 mg Heparin Sodium (Porcine) (Heparin) 5,000 units SC Q8 [facility] PRN Reason: Protocol Last Admin: 11/15/16 09:17 Dose: 5,000 units Home Med (Memantine Hcl [Namenda Xr]) 28 mg PO DAILY [facility] Ciprofloxacin (Cipro 400mg/200ml Dsw) 200 mls @ 200 mls/hr IVPB Q12 [facility] Last Admin: 11/15/16 09:15 Dose: 200 mls/hr Metronidazole (Flagyl 500mg/100ml Ns) 100 mls @ 100 mls/hr IVPB Q8H [facility] Last Admin: 11/15/16 06:09 Dose: 100 mls/hr Potassium Chloride/Dextrose/Sod Cl (Potassium Chl 20 Meq In D5-Ns) 1,000 mls @ 100 mls/hr IV .Q10H [facility] Stop: 11/15/16 17:01 Last Admin: 11/15/16 04:22 Dose: Not Given Metoprolol Succinate (Toprol Xl) 50 mg PO DAILY [facility] Last Admin: 11/15/16 09:16 Dose: 50 mg Morphine Sulfate (Morphine) 4 mg IVP Q4 PRN PRN Reason: Pain, moderate (4-7) Nitroglycerin (Nitro-Dur 0.2 Mg/Hr Patch) 1 patch TD DAILY [facility] Last Admin: 11/15/16 09:16 Dose: 1 patch Pantoprazole Sodium (Protonix Inj) 40 mg IVP DAILY [facility] Last Admin: 11/15/16 09:18 Dose: 40 mg Tamsulosin HCl (Flomax) 0.4 mg PO HS [facility] Last Admin: 11/14/16 21:26 Dose: 0.4 mg Vancomycin HCl (Vancocin (Oral/Rectal Use)) 250 mg PO Q6H [facility] Last Admin: 11/15/16 06:06 Dose: 250 mg - Labs Labs: 11/15/16 05:30 11/15/16 05:30 APTT 33.9 SECONDS (23.3-32.5) H 11/14/16 09:56
[2016-11-16] MEDS: metroNIDAZOLE 500mg/100ml NS 100 ML IVPB SCH ×3 (05:59→20:16)
[2016-11-16] MEDS: Vancomycin 500 mg (Oral/Rectal USE) PO SCH ×4 (06:00→22:43)
[2016-11-16] MEDS: Ciprofloxacin 400mg/200ml D5W 200 ML IVPB SCH ×2 (09:35→21:28)
[2016-11-16] MEDS: Nitroglycerin 0.2 mg/hr Top Patch TD SCH (09:39)
[2016-11-16] MEDS: Cholestyramine 4 gm/Pkt UD PO SCH (09:39)
[2016-11-16] MEDS: Metoprolol Succinate 50 mg XL Tab PO SCH (09:43)
[2016-11-16] MEDS ORDERED: Potassium Chloride 20 mEq/15 ml LIQ UD PO ONE (15:10)
--- NOTE | 2016-11-16 23:07 | CP.PCM.PN ---
Subjective - Date & Time of Evaluation Date of Evaluation: 11/15/16 Time of Evaluation: 09:15 - Subjective Subjective: Patient is comfortable Has no SOB CT scan of the chest showed large pleural effusion. stool fo C diff has been negative x 2 but had a discussion with PMD, Dr Curtis Brown and a recent stool for C diff 2 days prior to hospitalization was positive, Patient was admitted multiple times to [facility] for recurrence of C diff. Objective - Vital Signs/Intake and Output Vital Signs (last 24 hours): Temp Pulse Resp BP Pulse Ox 97.3 F L 73 18 120/58 L 96 11/16/16 16:51 11/16/16 16:51 11/16/16 16:51 11/16/16 16:51 11/16/16 16:51 - Medications Medications: Current Medications Albuterol (Ventolin Hfa 90 Mcg/Actuation (8 G)) 2 puff IH Q4H PRN PRN Reason: Shortness of Breath Albuterol/Ipratropium (Duoneb 3 Mg/0.5 Mg (3 Ml) Ud) 3 ml IH RQ6 PRN PRN Reason: Shortness of Breath Aspirin (Ecotrin) 81 mg PO DAILY [facility] Atorvastatin Calcium (Lipitor) 20 mg PO HS [facility] Last Admin: 11/16/16 21:29 Dose: 20 mg Cholestyramine Resin (Questran) 4 gm PO DAILY [facility] Last Admin: 11/16/16 09:39 Dose: 4 gm Duloxetine HCl (Cymbalta) 30 mg PO DAILY [facility] Last Admin: 11/16/16 09:42 Dose: 30 mg Folic Acid (Folic Acid) 1 mg PO DAILY [facility] Last Admin: 11/16/16 09:42 Dose: 1 mg Heparin Sodium (Porcine) (Heparin) 5,000 units SC Q8 [facility] PRN Reason: Protocol Last Admin: 11/16/16 17:29 Dose: 5,000 units Home Med (Memantine Hcl [Namenda Xr]) 28 mg PO DAILY [facility] Last Admin: 11/16/16 11:30 Dose: 28 mg Ciprofloxacin (Cipro 400mg/200ml Dsw) 200 mls @ 200 mls/hr IVPB Q12 [facility] Last Admin: 11/16/16 21:28 Dose: 200 mls/hr Metronidazole (Flagyl 500mg/100ml Ns) 100 mls @ 100 mls/hr IVPB Q8H [facility] Last Admin: 11/16/16 20:16 Dose: 100 mls/hr Metoprolol Succinate (Toprol Xl) 50 mg PO DAILY [facility] Last Admin: 11/16/16 09:43 Dose: Not Given Nitroglycerin (Nitro-Dur 0.2 Mg/Hr Patch) 1 patch TD DAILY [facility] Last Admin: 11/16/16 09:39 Dose: Not Given Pantoprazole Sodium (Protonix Inj) 40 mg IVP DAILY [facility] Last Admin: 11/16/16 09:44 Dose: 40 mg Potassium Chloride (Potassium Chloride Oral Soln) 40 meq PO DAILY [facility] Tamsulosin HCl (Flomax) 0.4 mg PO HS [facility] Last Admin: 11/16/16 21:29 Dose: 0.4 mg Vancomycin HCl (Vancocin (Oral/Rectal Use)) 250 mg PO Q6H [facility] Last Admin: 11/16/16 22:43 Dose: 250 mg - Labs Labs: 11/15/16 05:30 11/15/16 05:30 APTT 33.9 SECONDS (23.3-32.5) H 11/14/16 09:56 - Eye Exam Eye Exam: Normal appearance - ENT Exam ENT Exam: Mucous Membranes Moist - Respiratory Exam Respiratory Exam: NORMAL BREATHING PATTERN - Cardiovascular Exam Cardiovascular Exam: REGULAR RHYTHM - GI/Abdominal Exam GI & Abdominal Exam: Normal Bowel Sounds - Neurological Exam Neurological Exam: Awake Assessment and Plan (1) Pleural effusion on left Status: Acute (2) UTI (urinary tract infection) Status: Acute (3) COPD (chronic obstructive pulmonary disease) Status: Chronic (4) Dementia Status: Chronic (5) Clostridium difficile colitis Status: Acute (6) MRSA (methicillin resistant Staphylococcus aureus) infection Status: Acute (7) Liver cyst Status: Acute - Assessment and Plan (Free Text) Plan: Cont meds IV antibiotics vanco po 250 q 6 hydrate follow up with pulmonary
--- NOTE | 2016-11-16 23:43 | CP.PCM.PN ---
Subjective - Date & Time of Evaluation Date of Evaluation: 11/16/16 Time of Evaluation: 11:45 - Subjective Subjective: Patient remains stable. Has no chest pain or SOB Stool exam from 11/15 was positive for H pylori. Objective - Vital Signs/Intake and Output Vital Signs (last 24 hours): Temp Pulse Resp BP Pulse Ox 97.3 F L 73 18 120/58 L 96 11/16/16 16:51 11/16/16 16:51 11/16/16 16:51 11/16/16 16:51 11/16/16 16:51 - Medications Medications: Current Medications Albuterol (Ventolin Hfa 90 Mcg/Actuation (8 G)) 2 puff IH Q4H PRN PRN Reason: Shortness of Breath Albuterol/Ipratropium (Duoneb 3 Mg/0.5 Mg (3 Ml) Ud) 3 ml IH RQ6 PRN PRN Reason: Shortness of Breath Aspirin (Ecotrin) 81 mg PO DAILY [facility] Atorvastatin Calcium (Lipitor) 20 mg PO HS [facility] Last Admin: 11/16/16 21:29 Dose: 20 mg Cholestyramine Resin (Questran) 4 gm PO DAILY [facility] Last Admin: 11/16/16 09:39 Dose: 4 gm Duloxetine HCl (Cymbalta) 30 mg PO DAILY [facility] Last Admin: 11/16/16 09:42 Dose: 30 mg Folic Acid (Folic Acid) 1 mg PO DAILY [facility] Last Admin: 11/16/16 09:42 Dose: 1 mg Heparin Sodium (Porcine) (Heparin) 5,000 units SC Q8 [facility] PRN Reason: Protocol Last Admin: 11/16/16 17:29 Dose: 5,000 units Home Med (Memantine Hcl [Namenda Xr]) 28 mg PO DAILY [facility] Last Admin: 11/16/16 11:30 Dose: 28 mg Ciprofloxacin (Cipro 400mg/200ml Dsw) 200 mls @ 200 mls/hr IVPB Q12 [facility] Last Admin: 11/16/16 21:28 Dose: 200 mls/hr Metronidazole (Flagyl 500mg/100ml Ns) 100 mls @ 100 mls/hr IVPB Q8H [facility] Last Admin: 11/16/16 20:16 Dose: 100 mls/hr Metoprolol Succinate (Toprol Xl) 50 mg PO DAILY [facility] Last Admin: 11/16/16 09:43 Dose: Not Given Nitroglycerin (Nitro-Dur 0.2 Mg/Hr Patch) 1 patch TD DAILY [facility] Last Admin: 11/16/16 09:39 Dose: Not Given Pantoprazole Sodium (Protonix Inj) 40 mg IVP DAILY [facility] Last Admin: 11/16/16 09:44 Dose: 40 mg Potassium Chloride (Potassium Chloride Oral Soln) 40 meq PO DAILY [facility] Tamsulosin HCl (Flomax) 0.4 mg PO HS [facility] Last Admin: 11/16/16 21:29 Dose: 0.4 mg Vancomycin HCl (Vancocin (Oral/Rectal Use)) 250 mg PO Q6H [facility] Last Admin: 11/16/16 22:43 Dose: 250 mg - Labs Labs: 11/15/16 05:30 11/15/16 05:30 APTT 33.9 SECONDS (23.3-32.5) H 11/14/16 09:56 - Head Exam Head Exam: NORMAL INSPECTION - Eye Exam Eye Exam: Normal appearance - Respiratory Exam Respiratory Exam: Clear to Ausculation Bilateral - Cardiovascular Exam Cardiovascular Exam: REGULAR RHYTHM - GI/Abdominal Exam GI & Abdominal Exam: Normal Bowel Sounds - Neurological Exam Neurological Exam: CN II-XII Intact - Skin Skin Exam: Intact Assessment and Plan (1) Pleural effusion on left Status: Acute (2) UTI (urinary tract infection) Status: Acute (3) COPD (chronic obstructive pulmonary disease) Status: Chronic (4) Dementia Status: Chronic (5) Clostridium difficile colitis Status: Acute (6) MRSA (methicillin resistant Staphylococcus aureus) infection Status: Acute (7) Liver cyst Status: Acute - Assessment and Plan (Free Text) Plan: Cont meds follow up with ID continue 250 mg q 6 vancomycin keith
[2016-11-17] MEDS: metroNIDAZOLE 500mg/100ml NS 100 ML IVPB SCH ×3 (04:31→21:17)
[2016-11-17] MEDS: Vancomycin 500 mg (Oral/Rectal USE) PO SCH ×4 (04:31→22:47)
[2016-11-17] MEDS: Ciprofloxacin 400mg/200ml D5W 200 ML IVPB SCH ×2 (09:45→22:44)
[2016-11-17] MEDS: Metoprolol Succinate 50 mg XL Tab PO SCH (09:46)
[2016-11-17] MEDS: Potassium Chloride 20 mEq/15 ml LIQ UD PO SCH (09:47)
[2016-11-17] MEDS: Cholestyramine 4 gm/Pkt UD PO SCH (09:47)
[2016-11-17] MEDS: Nitroglycerin 0.2 mg/hr Top Patch TD SCH (09:48)
[2016-11-17] MEDS ORDERED: Lidocaine 1% Inj (20ml) ONE (13:06)
--- NOTE | 2016-11-17 13:36 | PCM.SURG1 ---
Surgeon's Initial Post Op Note - Surgeon's Notes Surgeon: Ezra Martínez MD Systems Administration Analyst: NONE Type of Anesthesia: Local Pre-Operative Diagnosis: Left pleural effusion Operative Findings: US showed a moderate left pleural effusion Post-Operative Diagnosis: Left pleural effusion Operation Performed: US guided left thoracentesis. Specimen/Specimens Removed: 800 cc of straw colored fluid Estimated Blood Loss: EBL {In ML}: 0 Blood Products Given: N/A Drains Used: No Drains Post-Op Condition: Fair Date of Surgery/Procedure: 11/17/16 Time of Surgery/Procedure: 13:30
[2016-11-17 14:27] LABS: BODY FLUID TYPE PLEURAL
[2016-11-17 14:29] LABS: BASO % 0.9 % (0.0-2.0); EOS # 0.2 K/uL (0.0-0.7); EOS % 8.8 % (0.0-4.0); HEMATOCRIT 38.9 % (35.0-51.0); LYMPH # 0.8 K/uL (1.0-4.3); LYMPH % 28.3 % (20.0-40.0); MEAN CELL VOLUME 91.6 fl (80.0-94.0); MEAN CORPUSCULAR HEMOGLOBIN 30.4 pg (27.0-31.0); MEAN CORPUSCULAR HGB CONC 33.2 g/dL (33.0-37.0); MEAN PLATELET VOLUME 8.3 fl (7.2-11.7); MONO # 0.3 K/uL (0.0-0.8); MONO % 11.9 % (0.0-10.0); NEUT # 1.4 K/uL (1.8-7.0); NEUT % 50.1 % (50.0-75.0); NRBC % 0.1 % (0.0-0.0); WHITE BLOOD COUNT 2.7 K/uL (4.8-10.8)
[2016-11-17 14:36] LABS: ALB/GLOB RATIO 0.9 (1.0-2.1); ALKALINE PHOSPHATASE 64 U/L (38-126); ALT/SGPT 9 U/L (21-72); AST/SGOT 19 U/L (17-59); BILIRUBIN,TOTAL 0.3 mg/dl (0.2-1.3); CALCIUM 8.4 mg/dL (8.4-10.2); CARBON DIOXIDE 26 mmol/L (22-30); CHLORIDE 105 mmol/L (98-107); GFR AFRICAN-AMERICAN > 60; GLUCOSE,RANDOM 114 mg/dL (75-110); POTASSIUM 4.7 MMOL/L (3.6-5.0); SODIUM 141 mmol/l (132-148); TOTAL PROTEIN 5.5 G/DL (6.3-8.2)
[2016-11-17 14:43] LABS: BLOOD UREA NITROGEN 2 mg/dl (9-20)
--- NOTE | 2016-11-17 14:49 | RAD ---
PROCEDURE: CHEST RADIOGRAPH, 1 VIEW. Technique: Single view portable semi erect @ 13:45. HISTORY: Status post left thoracentesis. COMPARISON: 11/14/2016. Chest radiograph 11/14/2016 CT thorax FINDINGS: LUNGS: Stable consolidative changes left lower lobe. PLEURA: Stable left pleural effusion. No pneumothorax. CARDIOVASCULAR: No radiographic findings to suggest acute or significant cardiovascular disease. Position/ configuration of pacemaker device: Satisfactory. OSSEOUS STRUCTURES: No significant abnormalities. VISUALIZED UPPER ABDOMEN: Normal. OTHER FINDINGS: None. IMPRESSION: No significant interval change compared to the prior examination(s).
[2016-11-17 14:50] LABS: LDH,BODY FLUID 308 IU (NONE ESTABLISHED)
[2016-11-17 15:41] LABS: BF GROSS APPEARANCE CLEAR (CLEAR); BODY FLUID TOTAL COUNT 100 (0-0)
[2016-11-18] MEDS: metroNIDAZOLE 500mg/100ml NS 100 ML IVPB SCH ×3 (04:18→21:39)
[2016-11-18] MEDS: Vancomycin 500 mg (Oral/Rectal USE) PO SCH ×3 (04:40→16:28)
[2016-11-18 08:07] LABS: BLOOD UREA NITROGEN 3 mg/dl (9-20); CARBON DIOXIDE 23 mmol/L (22-30); CHLORIDE 106 mmol/L (98-107); GFR AFRICAN-AMERICAN > 60; GLUCOSE,RANDOM 100 mg/dL (75-110); POTASSIUM 3.5 MMOL/L (3.6-5.0); SODIUM 138 mmol/l (132-148)
--- NOTE | 2016-11-18 08:38 | PQF GENQUE ---
This form is a permanent part of the medical record 11/18/16 Dr Mccloud, After workup please clarify : 1) If the UTI is ruled in or out. 2) If the UTI is ruled in please clarify if it due to the suprapubic catheter, not suprapubic catheter related, other explanation or unable to determine. Patient with a suprapubic catheter which was changed 3 days ago as per the ER presents with abdominal pain, diarrhea and urine retention. H&P documentation of "UTI unclear whether this is colonization versus active infection". URINE CS : Enterobacter cloacae SSP and MRSA. Currently being treated for colitis as well. Treatment includes antibiotics. Clarification of your documentation is requested to better reflect the severity of illness and intensity of treatment of your patient. PHYSICIAN'S RESPONSE Based on your medical judgment of the clinical indicators outlined above please clarify the following: [] Practitioner response [] If unable to determine, please check the box, sign and date. Present On Admission (POA) Indicator: [] Present at the time of admission [] Not present at the time of admission [] Clinically Undetermined In responding to this query, please exercise your independent professional judgment. The fact that a question is asked does not imply that any particular answer is desired or expected. Thank you for your clarification on this documentation. If you have any questions please call:[phone] Medical Records * Thank you, Celia Mcmullen RN [facility]
[2016-11-18] MEDS: Nitroglycerin 0.2 mg/hr Top Patch TD SCH (09:18)
[2016-11-18] MEDS: Potassium Chloride 20 mEq/15 ml LIQ UD PO SCH (09:18)
[2016-11-18] MEDS: Cholestyramine 4 gm/Pkt UD PO SCH (09:19)
[2016-11-18] MEDS: Metoprolol Succinate 50 mg XL Tab PO SCH (09:19)
--- NOTE | 2016-11-18 10:17 | CP.PCM.PN ---
<Renee Ho - Last Filed: 11/18/16 12:39> Subjective - Date & Time of Evaluation Date of Evaluation: 11/18/16 Time of Evaluation: 06:50 - Subjective Subjective: 81M seen and examined at bedside with attending. Pt feeling much better this morning, denies abdominal pain, SOB, or chest pain. Objective - Vital Signs/Intake and Output Vital Signs (last 24 hours): Temp Pulse Resp BP Pulse Ox 36.3 C L 79 20 152/59 H 97 11/18/16 07:58 11/18/16 09:19 11/18/16 07:58 11/18/16 09:19 11/18/16 07:58 Intake and Output: 11/18/16 11/18/16 06:59 18:59 Output Total 1300 Balance -1300 - Medications Medications: Current Medications Albuterol (Ventolin Hfa 90 Mcg/Actuation (8 G)) 2 puff IH Q4H PRN PRN Reason: Shortness of Breath Albuterol/Ipratropium (Duoneb 3 Mg/0.5 Mg (3 Ml) Ud) 3 ml IH RQ6 PRN PRN Reason: Shortness of Breath Aspirin (Ecotrin) 81 mg PO DAILY [facility] Atorvastatin Calcium (Lipitor) 20 mg PO HS [facility] Last Admin: 11/17/16 21:18 Dose: 20 mg Cholestyramine Resin (Questran) 4 gm PO DAILY [facility] Last Admin: 11/18/16 09:19 Dose: 4 gm Duloxetine HCl (Cymbalta) 30 mg PO DAILY [facility] Last Admin: 11/18/16 09:16 Dose: 30 mg Folic Acid (Folic Acid) 1 mg PO DAILY [facility] Last Admin: 11/18/16 09:17 Dose: 1 mg Heparin Sodium (Porcine) (Heparin) 5,000 units SC Q8 MICHELLE PRN Reason: Protocol Last Admin: 11/18/16 09:17 Dose: 5,000 units Home Med (Memantine Hcl [Namenda Xr]) 28 mg PO DAILY [facility] Last Admin: 11/18/16 09:17 Dose: 28 mg Ciprofloxacin (Cipro 400mg/200ml Dsw) 200 mls @ 200 mls/hr IVPB Q12 [facility] Last Admin: 11/17/16 22:44 Dose: 200 mls/hr Metronidazole (Flagyl 500mg/100ml Ns) 100 mls @ 100 mls/hr IVPB Q8H [facility] Last Admin: 11/18/16 04:18 Dose: 100 mls/hr Metoprolol Succinate (Toprol Xl) 50 mg PO DAILY [facility] Last Admin: 11/18/16 09:19 Dose: 50 mg Nitroglycerin (Nitro-Dur 0.2 Mg/Hr Patch) 1 patch TD DAILY [facility] Last Admin: 11/18/16 09:18 Dose: 1 patch Pantoprazole Sodium (Protonix Inj) 40 mg IVP DAILY [facility] Last Admin: 11/18/16 09:19 Dose: 40 mg Potassium Chloride (Potassium Chloride Oral Soln) 40 meq PO DAILY [facility] Last Admin: 11/18/16 09:18 Dose: 40 meq Tamsulosin HCl (Flomax) 0.4 mg PO HS [facility] Last Admin: 11/17/16 21:18 Dose: 0.4 mg Vancomycin HCl (Vancocin (Oral/Rectal Use)) 250 mg PO Q6H [facility] Last Admin: 11/18/16 04:40 Dose: 250 mg - Labs Labs: 11/17/16 14:15 11/18/16 07:34 APTT 33.9 SECONDS (23.3-32.5) H 11/14/16 09:56 - Constitutional Appears: Well, No Acute Distress - Head Exam Head Exam: ATRAUMATIC, NORMAL INSPECTION - Eye Exam Eye Exam: EOMI, Normal appearance - ENT Exam ENT Exam: Mucous Membranes Moist, Normal Exam - Neck Exam Neck Exam: Full ROM, Normal Inspection - Respiratory Exam Respiratory Exam: Rales (coarse LEFT base), Rhonchi (scattered), NORMAL BREATHING PATTERN. absent: Decreased Breath Sounds (improved compared to prior to thoracentesis) - Cardiovascular Exam Cardiovascular Exam: REGULAR RHYTHM. absent: JVD - GI/Abdominal Exam GI & Abdominal Exam: Soft (suprapubic in place), Normal Bowel Sounds. absent: Tenderness - Extremities Exam Extremities Exam: Full ROM, Normal Capillary Refill. absent: Pedal Edema - Neurological Exam Neurological Exam: Alert, Awake - Psychiatric Exam Psychiatric exam: Normal Affect, Normal Mood - Skin Skin Exam: Normal Color, Warm Assessment and Plan (1) Colitis Assessment & Plan: 3rd c. diff positive despite being on flagyl prior to admission and then started on PO vancomycin. Clinically continues to improve with thickened and less frequent BMs. - GI Consult (Dr Pickering) appreciated - Dr Sagastume (ID) consult appreciated - Heart Healthy - Vancomycin 125mg, PO, Q6H - Questron 4g, PO, Daily - d/c of Cipro Status: Acute (2) Pleural effusion on left Assessment & Plan: s/p thoracentesis awaiting cytology and cultures, smear negative for organisms. Clinically improved, but may consider repeat CT chest based on post- procedure CXR. Will monitor for today. - Pulmonary Consult (Dr Beltre) appreciated - d/c oxygen Status: Acute (3) UTI (urinary tract infection) Assessment & Plan: Culture from admission establishes presence prior to admission with suprapubic catheter placed prior to admission. - Dr Sagastume (ID) consult appreciated - d/c Ciprofloxacin - UCx: MRSA/enterobacter - Start Vancomycin 750mg Q12H - Vancomycin trough 11/20 @ 0830 - Start Azactam 1g Q8H Status: Acute (5) DVT prophylaxis Assessment & Plan: Pt high risk and has IVC, however placed on prophylaxis. - Heparin 5,000U, SC, Q8H Status: Acute (6) CAD (coronary artery disease) Assessment & Plan: Hx CABG, AICD, asymptomatic. Ordered EKG as none available to provide baseline - c/w Statin 20mg, PO, qHS - c/w Nitro TD Daily - Lopressor 50mg, PO, Q12H - f/u EKG Status: Chronic (7) COPD (chronic obstructive pulmonary disease) Assessment & Plan: Current every day heavy smoker, CT showing bullous emphysema. - c/w DuoNebs - c/w Ventolin Status: Chronic (8) Dementia Assessment & Plan: Appears to be very mild with some forgetfulness - c/w Cymbalta - c/w Namenda Status: Chronic (9) BPH (benign prostatic hypertrophy) Assessment & Plan: Requiring suprapubic catheter, scheduled for TURP(?) 11/[address] York. - Urology Consult (Dr York) appreciated: replaced suprapubic catheter - c/w FloMax Status: Chronic <Yash Mccloud - Last Filed: 11/23/16 10:59> Objective - Vital Signs/Intake and Output Vital Signs (last 24 hours): Temp Pulse Resp BP Pulse Ox 98.1 F 78 18 142/70 99 11/23/16 07:37 11/23/16 09:08 11/23/16 07:37 11/23/16 09:08 11/23/16 07:37 Intake and Output: 11/23/16 11/23/16 06:59 18:59 Intake Total 480 Output Total 1000 Balance -520 - Medications Medications: Current Medications Acetaminophen (Tylenol 650 Mg Supp) 650 mg AR ONCE PRN PRN Reason: Pain, moderate (4-7) Albuterol (Ventolin Hfa 90 Mcg/Actuation (8 G)) 2 puff IH Q4H PRN PRN Reason: Shortness of Breath Last Admin: 11/20/16 14:42 Dose: 2 puff Albuterol/Ipratropium (Duoneb 3 Mg/0.5 Mg (3 Ml) Ud) 3 ml IH RQ6 PRN PRN Reason: Shortness of Breath Aspirin (Ecotrin) 81 mg PO DAILY [facility] Last Admin: 11/21/16 08:39 Dose: 81 mg Atorvastatin Calcium (Lipitor) 20 mg PO HS [facility] Last Admin: 11/22/16 22:16 Dose: 20 mg Cholestyramine Resin (Questran) 4 gm PO DAILY [facility] Last Admin: 11/23/16 09:06 Dose: 4 gm Duloxetine HCl (Cymbalta) 30 mg PO DAILY [facility] Last Admin: 11/23/16 09:07 Dose: 30 mg Famotidine (Pepcid) 20 mg PO BID [facility] Last Admin: 11/23/16 09:06 Dose: 20 mg Folic Acid (Folic Acid) 1 mg PO DAILY [facility] Last Admin: 11/23/16 09:06 Dose: 1 mg Heparin Sodium (Porcine) (Heparin) 5,000 units SC Q8 MICHELLE PRN Reason: Protocol Stop: 11/23/16 23:59 Last Admin: 11/23/16 09:07 Dose: 5,000 units Home Med (Memantine Hcl [Namenda Xr]) 28 mg PO DAILY [facility] Last Admin: 11/23/16 09:08 Dose: 28 mg Vancomycin HCl 750 mg/ Sodium (Chloride) 250 mls @ 250 mls/hr IVPB Q12H [facility] Last Admin: 11/23/16 10:37 Dose: 250 mls/hr Lactobacillus Acidophilus (Bacid Acidophilus) 1 cap PO BID [facility] Last Admin: 11/23/16 09:05 Dose: 1 cap Magnesium Oxide (Mag-Ox) 400 mg PO DAILY [facility] Last Admin: 11/23/16 09:07 Dose: 400 mg Metoprolol Succinate (Toprol Xl) 50 mg PO DAILY [facility] Last Admin: 11/23/16 09:07 Dose: 50 mg Nitroglycerin (Nitro-Dur 0.2 Mg/Hr Patch) 1 patch TD DAILY [facility] Last Admin: 11/23/16 09:08 Dose: 1 patch Potassium Chloride (Potassium Chloride Oral Soln) 40 meq PO DAILY [facility] Last Admin: 11/23/16 09:06 Dose: 40 meq Rifaximin (Xifaxan) 550 mg PO BID [facility] Last Admin: 11/23/16 09:05 Dose: 550 mg Tamsulosin HCl (Flomax) 0.4 mg PO HS [facility] Last Admin: 11/22/16 22:16 Dose: 0.4 mg Vancomycin HCl (Vancocin (Oral/Rectal Use)) 250 mg PO Q6H [facility] Last Admin: 11/23/16 10:38 Dose: 250 mg - Labs Labs: 11/22/16 05:30 11/22/16 05:30 PT 13.6 SECONDS (9.6-11.2) H 11/18/16 17:30 INR 1.31 (0.92-1.08) H 11/18/16 17:30 APTT 33.9 SECONDS (23.3-32.5) H 11/14/16 09:56 Assessment and Plan (1) Pleural effusion on left Status: Acute (2) UTI (urinary tract infection) Status: Acute (3) COPD (chronic obstructive pulmonary disease) Status: Chronic (4) Dementia Status: Chronic (5) Clostridium difficile colitis Status: Acute (6) MRSA (methicillin resistant Staphylococcus aureus) infection Status: Acute (7) Liver cyst Status: Acute - Assessment and Plan (Free Text) Plan: I was present during evaluation and personally examined patient. Discussed with Dr Georgia forman plans of care and management.
--- NOTE | 2016-11-18 10:49 | CP.PCM.CON ---
History of Present Illness - History of Present Illness History of Present Illness: 81M was admitted overnight for colitis. He developed mild loose stool mixed with mucous about 3-4 days ago and then began having abdominal pain "everywhere " with associated "feeling full" but denies any fevers, chills, nausea, vomiting. As per pt he has had some shortness of breath and states he had formed stool overnight. As per daughter he was recently treated for pneumonia. He has had multiple episodes of c. diff and has an extensive cardiac history. Recently had suprapubic catheter placed and has scheduled prostate surgery 11/[address] York. As per PMD, Dr Brown, recently c. diff was positive as well as hemoccult blood. PMH: DVT, HTN, HLD, mild dementia, hard of hearing, c diff PSH: CABG, IVC, AICD, suprapubic Lives with Current smoker Review of Systems - Review of Systems Systems not reviewed;Unavailable: Altered Mental Status Past Patient History - Infectious Disease Hx of Infectious Diseases: None - Past Medical History & Family History Past Medical History?: Yes - Past Social History Smoking Status: Heavy Smoker > 10 Cigarettes Daily - CARDIAC Hx Cardiac Disorders: Yes Hx Hypertension: Yes Other/Comment: hyperlipidemia - PULMONARY Hx Respiratory Disorders: Yes Hx Pneumonia: Yes - NEUROLOGICAL Hx Neurological Disorder: Yes Hx Dementia: Yes - RENAL Hx Chronic Kidney Disease: No - ENDOCRINE/METABOLIC Hx Endocrine Disorders: No - HEMATOLOGICAL/ONCOLOGICAL Hx Blood Disorders: Yes Hx Shingles: Yes - INTEGUMENTARY Hx Dermatological Problems: No - MUSCULOSKELETAL/RHEUMATOLOGICAL Hx Musculoskeletal Disorders: Yes Hx Falls: Yes - GASTROINTESTINAL Hx Gastrointestinal Disorders: No - GENITOURINARY/GYNECOLOGICAL Hx Genitourinary Disorders: Yes Hx Prostate Problems: Yes Hx Urinary Tract Infection: Yes Other/Comment: Urinary retention - PSYCHIATRIC Hx Psychophysiologic Disorder: No Hx Substance Use: No - SURGICAL HISTORY Hx Surgeries: Yes Hx Angioplasty: Yes Hx Appendectomy: Yes Hx Cholecystectomy: Yes Hx Coronary Artery Bypass Graft: Yes Hx Open Heart Surgery: Yes - ANESTHESIA Hx Anesthesia: Yes Hx Anesthesia Reactions: No Meds Allergies/Adverse Reactions: Allergies Allergy/AdvReac Type Severity Reaction Status Date / Time Penicillins Allergy Verified 11/13/16 14:44 - Medications Medications: Current Medications Albuterol (Ventolin Hfa 90 Mcg/Actuation (8 G)) 2 puff IH Q4H PRN PRN Reason: Shortness of Breath Albuterol/Ipratropium (Duoneb 3 Mg/0.5 Mg (3 Ml) Ud) 3 ml IH RQ6 PRN PRN Reason: Shortness of Breath Aspirin (Ecotrin) 81 mg PO DAILY [facility] Atorvastatin Calcium (Lipitor) 20 mg PO HS [facility] Last Admin: 11/17/16 21:18 Dose: 20 mg Cholestyramine Resin (Questran) 4 gm PO DAILY [facility] Last Admin: 11/18/16 09:19 Dose: 4 gm Duloxetine HCl (Cymbalta) 30 mg PO DAILY [facility] Last Admin: 11/18/16 09:16 Dose: 30 mg Folic Acid (Folic Acid) 1 mg PO DAILY [facility] Last Admin: 11/18/16 09:17 Dose: 1 mg Heparin Sodium (Porcine) (Heparin) 5,000 units SC Q8 MICHELLE PRN Reason: Protocol Last Admin: 11/18/16 09:17 Dose: 5,000 units Home Med (Memantine Hcl [Namenda Xr]) 28 mg PO DAILY [facility] Last Admin: 11/18/16 09:17 Dose: 28 mg Ciprofloxacin (Cipro 400mg/200ml Dsw) 200 mls @ 200 mls/hr IVPB Q12 [facility] Last Admin: 11/17/16 22:44 Dose: 200 mls/hr Metronidazole (Flagyl 500mg/100ml Ns) 100 mls @ 100 mls/hr IVPB Q8H [facility] Last Admin: 11/18/16 04:18 Dose: 100 mls/hr Metoprolol Succinate (Toprol Xl) 50 mg PO DAILY [facility] Last Admin: 11/18/16 09:19 Dose: 50 mg Nitroglycerin (Nitro-Dur 0.2 Mg/Hr Patch) 1 patch TD DAILY [facility] Last Admin: 11/18/16 09:18 Dose: 1 patch Pantoprazole Sodium (Protonix Inj) 40 mg IVP DAILY [facility] Last Admin: 11/18/16 09:19 Dose: 40 mg Potassium Chloride (Potassium Chloride Oral Soln) 40 meq PO DAILY [facility] Last Admin: 11/18/16 09:18 Dose: 40 meq Tamsulosin HCl (Flomax) 0.4 mg PO HS [facility] Last Admin: 11/17/16 21:18 Dose: 0.4 mg Vancomycin HCl (Vancocin (Oral/Rectal Use)) 250 mg PO Q6H [facility] Last Admin: 11/18/16 04:40 Dose: 250 mg Physical Exam - Constitutional Appears: Confused, Cachectic, Chronically Ill - Head Exam Head Exam: NORMOCEPHALIC - Eye Exam Eye Exam: PERRL. absent: Scleral icterus - ENT Exam ENT Exam: Mucous Membranes Dry - Neck Exam Neck exam: Negative for: Lymphadenopathy - Respiratory Exam Respiratory Exam: Decreased Breath Sounds, Rhonchi - Cardiovascular Exam Cardiovascular Exam: REGULAR RHYTHM, +S1, +S2 - GI/Abdominal Exam GI & Abdominal Exam: Diminished Bowel Sounds, Distended, Soft. absent: Tenderness - Rectal Exam Rectal Exam: Deferred - Exam Exam: absent: NORMAL INSPECTION Additional comments: suprapubic - Extremities Exam Extremities exam: Negative for: calf tenderness, pedal edema, pedal pulses present - Back Exam Back exam: absent: CVA tenderness (L), CVA tenderness (R) - Neurological Exam Neurological exam: Alert, CN II-XII Intact, Oriented x3 - Psychiatric Exam Psychiatric exam: Anxious - Skin Skin Exam: Dry Results - Vital Signs Recent Vital Signs: Last Vital Signs Temp 97.4 F L 11/18/16 07:58 Pulse 79 11/18/16 09:19 Resp 20 11/18/16 07:58 BP 152/59 H 11/18/16 09:19 Pulse Ox 97 11/18/16 07:58 - Labs Result Diagrams: 11/17/16 14:15 11/18/16 07:34 Labs: Laboratory Results - last 24 hr 11/17/16 11/17/16 11/18/16 13:20 14:15 07:34 WBC 2.7 L RBC 4.25 L Hgb 12.9 Hct 38.9 MCV 91.6 MCH 30.4 MCHC 33.2 RDW 15.0 H Plt Count 149 MPV 8.3 Neut % (Auto) 50.1 Lymph % (Auto) 28.3 Pope % (Auto) 11.9 H Eos % (Auto) 8.8 H Baso % (Auto) 0.9 Neut # 1.4 L Lymph # 0.8 L Pope # 0.3 Eos # 0.2 Baso # 0.0 Sodium 141 138 Potassium 4.7 3.5 L Chloride 105 106 Carbon Dioxide 26 23 Anion Gap 15 13 BUN 2 L 3 L Creatinine 0.8 0.7 L Est GFR ( Amer) > 60 > 60 Est GFR (Non-Af Amer) > 60 > 60 Random Glucose 114 H 100 Calcium 8.4 8.0 L Total Bilirubin 0.3 AST 19 ALT 9 L D Alkaline Phosphatase 64 Total Protein 5.5 L Albumin 2.6 L Globulin 2.9 Albumin/Globulin Ratio 0.9 L Fluid Source Pleural Fluid Appearance Clear Fluid WBC 545.0 H Fluid RBC 267.0 H Fluid Tot Cell Count 100 H Fluid Neutrophils 3.0 H Fluid Lymphocytes 96.0 H Fld Monocyte/Macrophag 1 H Fluid Glucose 91 Fluid Total Protein 2.7 Fluid LDH 308 Fluid Comment Pale yellow Assessment & Plan (1) Pleural effusion on left Status: Acute Priority: High (2) Pulmonary infiltrate present on computed tomography Status: Acute Priority: High (3) Clostridium difficile colitis Status: Acute (4) Colitis Status: Acute (5) Dehydration Status: Acute (6) MRSA (methicillin resistant Staphylococcus aureus) infection Status: Acute - Assessment and Plan (Free Text) Assessment: + c diff urine - MRSA/ Enterobacter sputum and pleural fluid pending add vanco and azactam iv may need difcid po if c diff persists cipro d/c 'd
[2016-11-18] MEDS ORDERED: Sodium Chloride 3% for Inhalation 4 ML VIAL.NEB IH PRN (10:54)
--- NOTE | 2016-11-18 11:38 | US ---
PROCEDURE: Date of procedure: 11/17/2016 Procedure: 1. Ultrasound-guided left thoracentesis, CPT 82250 Medications: 1% Lidocaine HISTORY: Left pleural effusion, shortness of breath TECHNIQUE: Following informed consent ,the Patients' left chest was marked. Procedure time-out was called, and the patient was placed in the sitting position and limited ultrasound showed a large left effusion. The patient's left back was prepped and draped in the usual sterile fashion. After the skin was anesthetized with lidocaine, a drainage catheter was advanced under ultrasound guidance into the pleural space. Ultrasound-guided thoracentesis was performed. A total of 800 cubic centimeters of straw-colored fluid removed without complication. A Xeroform dressing was applied. IMPRESSION: Ultrasound guided left thoracentesis. There were no immediate complications.
[2016-11-18] MEDS: Ciprofloxacin 400mg/200ml D5W 200 ML IVPB SCH (12:30)
[2016-11-18 13:23] LABS: RBC URINE 2 /hpf (0-3); URINE BILIRUBIN NEGATIVE (NEGATIVE); URINE BLOOD NEGATIVE (NEGATIVE); URINE COLOR YELLOW (YELLOW); URINE GLUCOSE (UA) NEG (Normal); URINE KETONE NEGATIVE (NEGATIVE); URINE LEUKOCYTE ESTERASE SMALL Leu/uL (Negative); URINE PROTEIN 30 mg/dL (NEGATIVE); URINE UROBILINOGEN 0.2-1.0 mg/dL (0.2-1.0); WBC URINE 9 /hpf (0-5)
[2016-11-18] MEDS: Aztreonam 1 GM in Sodium Chloride 0.9% 100 ML IVPB SCH ×2 (13:27→18:18)
[2016-11-18] MEDS: Lactobacillus Acidophilus 500 MU Cap PO SCH (16:40)
[2016-11-18 17:21] LABS: ABG ALLEN TEST YES; ARTERIAL BLOOD GAS HCO3 22.4 mmol/L (21-28); ARTERIAL BLOOD GAS O2 CAPACITY 19.7 mL/dL (16-24); ARTERIAL BLOOD GAS O2 CONTENT 19.4 ML/dL (15-23); ARTERIAL BLOOD GAS PH 7.39 (7.35-7.45); ARTERIAL BLOOD GAS PO2 76 mm/Hg (80-100); ARTERIAL BLOOD HGB O2 SAT 93.9 % (95.0-98.0); HHB 1.2 % (0.0-5.0); METHEMOGLOBIN 1.9 % (0.0-3.0)
[2016-11-18 17:39] LABS: EOS % 3.3 % (0.0-4.0); HEMATOCRIT 45.1 % (35.0-51.0); LYMPH # 0.6 K/uL (1.0-4.3); LYMPH % 50.2 % (20.0-40.0); MEAN CELL VOLUME 92.6 fl (80.0-94.0); MEAN CORPUSCULAR HEMOGLOBIN 29.9 pg (27.0-31.0); MEAN CORPUSCULAR HGB CONC 32.3 g/dL (33.0-37.0); MEAN PLATELET VOLUME 8.2 fl (7.2-11.7); MONO % 1.5 % (0.0-10.0); NEUT # 0.5 K/uL (1.8-7.0); NRBC % 0.3 % (0.0-0.0); RED CELL DISTRIBUTION WIDTH 14.8 % (11.5-14.5)
[2016-11-18 17:41] LABS: WHITE BLOOD COUNT 1.2 K/uL (4.8-10.8)
[2016-11-18] MEDS ORDERED: Sodium Chloride 0.9% 0 ML IV ONE (17:44)
[2016-11-18] MEDS ORDERED: Iodixanol 320 MG/ML 100 ML BOTTLE IV ONE (17:45)
[2016-11-18 17:48] LABS: ALB/GLOB RATIO 0.9 (1.0-2.1); ALKALINE PHOSPHATASE 84 U/L (38-126); ALT/SGPT 7 U/L (21-72); AST/SGOT 22 U/L (17-59); BLOOD UREA NITROGEN 4 mg/dl (9-20); CALCIUM 8.7 mg/dL (8.4-10.2); CARBON DIOXIDE 24 mmol/L (22-30); CHLORIDE 103 mmol/L (98-107); GFR AFRICAN-AMERICAN > 60; GLUCOSE,RANDOM 97 mg/dL (75-110); POTASSIUM 4.6 MMOL/L (3.6-5.0); SODIUM 142 mmol/l (132-148); TOTAL PROTEIN 6.7 G/DL (6.3-8.2)
--- NOTE | 2016-11-18 18:03 | PCM.RRTMUL ---
<Arpan Ortiz - Last Filed: 11/19/16 16:42> PRODUCT SAFETY TEST ENGINEER Nurse Assessment - Situation PRODUCT SAFETY TEST ENGINEER Responder Arrival Time:: 09:10 - Vital Signs Blood Pressure:: 103/52 Pulse Rate:: 87 Respiratory Rate:: 20 Temperature:: 98 F Summary - Summary of Event Summary of Event: S: 81 y/o male had PRODUCT SAFETY TEST ENGINEER called this evening for new onset chest pain, shaking chills, and hypertension. O: Vitals on presentation: 98.2 F, BP: 200/100, HR: 101, O2 99% on 2L NC Gen: Alert, mild dementia (baseline) CVS: RRR, S1, S2, No MRG Lungs: CTA B/L, A&P Ext: cold and clammy hands, bilateral foot discoloration and mottled skin A: 81 y/o male with acute onset chest pain Meds ordered: Nitroglycerin SL Aspirin 325mg Morphine 2mg Acetaminophen 650 Labs ordered: ABG Troponin CKMB Imaging: EKG PRODUCT SAFETY TEST ENGINEER ended, blood pressure decreased to 166/78, skin discoloration resolved, chills subsided, patient was transferred to [facility] for further supervision. <Nancy Solomon - Last Filed: 11/19/16 17:56> Attending/Attestation - Attestation I have personally seen and examined this patient.: Yes I have fully participated in the care of the patient.: Yes I have reviewed all pertinent clinical information: Yes Notes (Text): 11/19/16 17:40 PRODUCT SAFETY TEST ENGINEER called bec of chest pain. Responded to the PRODUCT SAFETY TEST ENGINEER. Pt seen and examined with residents and case discussed with residents- Dr Ho and Dr Ortiz. Pt complains of chest pain. He was also having chills CP described as substernal about 7/10, nonradiating, no SOB, no diaphoresis. Pt had Thoracentesis done in am for large pleural effusion and post procedure CXR did not show any Pneumothorax;. Pt has extensive cardiac hx - CAD , CABG Initial BP was elevated at 200 systolic, rpt was 160 systolic w/o intervention. He was tachycardic at 108 however saturation was 97% on Room air. Lungs : basilar rales heart; reg rhythm Abd: soft, nontender EXt: no edema Chest Pain , need to r/o ACS , r/o PE HTn uncontrolled Chills poss sec to infection ( pt being tx for C diff Colitis and UTI) -EKG - stat ASA 325 mg , NTG SL 0.4 mg - Morphine IV 2 mg -CTA Pulm to r/o PE -CBC,CMP,Trop,CKMB,PT,PTT, Lactic acid - Tylenol suppository - Transfer pt to Telemetry for close monitoring - cont antibiotics PMD notified of event, discussed with Dr Ho ( resident in charge of pt)- Dr Calvo for Cardio consult- notified
[2016-11-18] MEDS: Sodium Chloride 0.9% 1,000 ML IV SCH (18:28)
[2016-11-19] MEDS ORDERED: Sodium Chloride 0.9% 1,000 ML IV SCH (00:30)
[2016-11-19] MEDS: Vancomycin 500 mg (Oral/Rectal USE) PO SCH ×5 (00:30→22:57)
[2016-11-19] MEDS: Aztreonam 1 GM in Sodium Chloride 0.9% 100 ML IVPB SCH ×3 (02:05→16:25)
[2016-11-19] MEDS: metroNIDAZOLE 500mg/100ml NS 100 ML IVPB SCH ×2 (05:30→13:07)
[2016-11-19] MEDS: Sodium Chloride 0.9% 1,000 ML IV SCH (06:33)
[2016-11-19 07:07] LABS: BASO % 0.1 % (0.0-2.0); EOS % 0.2 % (0.0-4.0); HEMATOCRIT 35.5 % (35.0-51.0); LYMPH # 0.2 K/uL (1.0-4.3); LYMPH % 2.8 % (20.0-40.0); MEAN CELL VOLUME 91.8 fl (80.0-94.0); MEAN CORPUSCULAR HEMOGLOBIN 30.4 pg (27.0-31.0); MEAN CORPUSCULAR HGB CONC 33.1 g/dL (33.0-37.0); MEAN PLATELET VOLUME 8.2 fl (7.2-11.7); MONO # 0.1 K/uL (0.0-0.8); MONO % 1.1 % (0.0-10.0); NEUT # 6.8 K/uL (1.8-7.0); NEUT % 95.8 % (50.0-75.0); PLATELET COUNT 119 K/uL (130-400); RED CELL DISTRIBUTION WIDTH 15.2 % (11.5-14.5); WHITE BLOOD COUNT 7.1 K/uL (4.8-10.8)
[2016-11-19 07:20] LABS: ALB/GLOB RATIO 0.8 (1.0-2.1); ALKALINE PHOSPHATASE 55 U/L (38-126); ALT/SGPT 15 U/L (21-72); AST/SGOT 34 U/L (17-59); BILIRUBIN,TOTAL 0.5 mg/dl (0.2-1.3); BLOOD UREA NITROGEN 9 mg/dl (9-20); CALCIUM 7.4 mg/dL (8.4-10.2); CARBON DIOXIDE 24 mmol/L (22-30); CHLORIDE 108 mmol/L (98-107); GFR AFRICAN-AMERICAN > 60; GLUCOSE,RANDOM 88 mg/dL (75-110); POTASSIUM 4.1 MMOL/L (3.6-5.0); SODIUM 141 mmol/l (132-148); TOTAL PROTEIN 4.6 G/DL (6.3-8.2)
[2016-11-19] MEDS ORDERED: Sodium Chloride 0.9% 500 ML IV SCH (09:30)
--- NOTE | 2016-11-19 09:48 | CP.PCM.PN ---
Subjective - Date & Time of Evaluation Date of Evaluation: 11/19/16 Time of Evaluation: 09:46 - Subjective Subjective: Interim entries in the EMR reviewed. Patient was transferred to telemetry yesterday because of chest pain. He had been well earlier in the day but developed chest pain with sweating and marked hypertension. There was an elevated lactic acid of 4.3, but a blood gas showing normal pH and O2/CO2 levels was done at almost the same time. An unexplained marked leukopenia with lymphocytosis was noted at the same time, which has subsequently improved. Pleural fluid results from the day before showed what seems to be a transudative effusion with no growth thus far. A follow up chest x-ray done this morning shows continued presence of a LLL density. He appears comfortable at present, no SOB or pain. Vital signs appear stable. He has been afebrile. His neck is supple and trachea midline. No palpable cervical adenopathy. Dullness is noted on percussion of the left base posteriorly. Breath sounds in the left base are very diminished w/o bronchial breathing or egophony. No wheezing is heard on either side and the right lung is essentially clear. Heart sounds are quite distant. Trace dependant edema is present in the ankles. No cyanosis. Residual pneumonia and possibly effusion in the left lung base. Transient leukopenia (sepsis?). Chest pain (?cardiac or pleural). Unexplained transient elevated lactic acid level. C dif colitis and UTI with MRSA/enterobacter. Agree that CT chest will be needed to evaluate the LLL infiltrate. Objective - Vital Signs/Intake and Output Vital Signs (last 24 hours): Temp Pulse Resp BP Pulse Ox 98.2 F 63 18 94/50 L 99 11/19/16 08:09 11/19/16 08:09 11/19/16 08:09 11/19/16 08:09 11/19/16 08:09 Intake and Output: 11/18/16 11/19/16 23:59 11:59 Intake Total 1000 Output Total 400 400 Balance -400 600 - Medications Medications: Current Medications Acetaminophen (Tylenol 650 Mg Supp) 650 mg GA ONCE PRN PRN Reason: Pain, moderate (4-7) Albuterol (Ventolin Hfa 90 Mcg/Actuation (8 G)) 2 puff IH Q4H PRN PRN Reason: Shortness of Breath Albuterol/Ipratropium (Duoneb 3 Mg/0.5 Mg (3 Ml) Ud) 3 ml IH RQ6 PRN PRN Reason: Shortness of Breath Aspirin (Ecotrin) 81 mg PO DAILY [facility] Atorvastatin Calcium (Lipitor) 20 mg PO HS [facility] Last Admin: 11/18/16 23:17 Dose: 20 mg Cholestyramine Resin (Questran) 4 gm PO DAILY [facility] Last Admin: 11/18/16 09:19 Dose: 4 gm Duloxetine HCl (Cymbalta) 30 mg PO DAILY [facility] Last Admin: 11/18/16 09:16 Dose: 30 mg Folic Acid (Folic Acid) 1 mg PO DAILY [facility] Last Admin: 11/18/16 09:17 Dose: 1 mg Heparin Sodium (Porcine) (Heparin) 5,000 units SC Q8 [facility] PRN Reason: Protocol Last Admin: 11/19/16 00:40 Dose: 5,000 units Home Med (Memantine Hcl [Namenda Xr]) 28 mg PO DAILY [facility] Last Admin: 11/18/16 09:17 Dose: 28 mg Metronidazole (Flagyl 500mg/100ml Ns) 100 mls @ 100 mls/hr IVPB Q8H [facility] Last Admin: 11/19/16 05:30 Dose: 100 mls/hr Vancomycin HCl 750 mg/ Sodium (Chloride) 250 mls @ 250 mls/hr IVPB Q12H [facility] Last Admin: 11/19/16 00:00 Dose: 250 mls/hr Aztreonam 1 gm/ Sodium (Chloride) 100 mls @ 100 mls/hr IVPB Q8 [facility] Last Admin: 11/19/16 02:05 Dose: 100 mls/hr Sodium Chloride (Sodium Chloride 0.9%) 1,000 mls @ 75 mls/hr IV .[id number] [facility] Stop: 11/19/16 18:01 Last Admin: 11/19/16 06:33 Dose: 75 mls/hr Sodium Chloride (Sodium Chloride 0.9%) 500 mls @ 250 mls/hr IV .Q2H [facility] Stop: 11/19/16 11:29 Lactobacillus Acidophilus (Bacid Acidophilus) 1 cap PO BID [facility] Last Admin: 11/18/16 16:40 Dose: 1 cap Metoprolol Succinate (Toprol Xl) 50 mg PO DAILY [facility] Last Admin: 04/11/17 09:19 Dose: 50 mg Nitroglycerin (Nitro-Dur 0.2 Mg/Hr Patch) 1 patch TD DAILY [facility] Last Admin: 11/18/16 09:18 Dose: 1 patch Pantoprazole Sodium (Protonix Inj) 40 mg IVP DAILY [facility] Last Admin: 11/18/16 09:19 Dose: 40 mg Potassium Chloride (Potassium Chloride Oral Soln) 40 meq PO DAILY [facility] Last Admin: 11/18/16 09:18 Dose: 40 meq Tamsulosin HCl (Flomax) 0.4 mg PO HS [facility] Last Admin: 11/18/16 21:40 Dose: 0.4 mg Vancomycin HCl (Vancocin (Oral/Rectal Use)) 250 mg PO Q6H [facility] Last Admin: 11/19/16 05:33 Dose: 250 mg - Labs Labs: 11/19/16 06:30 11/19/16 06:30 PT 13.6 SECONDS (9.6-11.2) H 11/18/16 17:30 INR 1.31 (0.92-1.08) H 11/18/16 17:30 APTT 33.9 SECONDS (23.3-32.5) H 11/14/16 09:56 Assessment and Plan (1) Pleural effusion on left Status: Acute (2) Pulmonary infiltrate present on computed tomography Status: Acute
[2016-11-19] MEDS: Nitroglycerin 0.2 mg/hr Top Patch TD SCH ×3 (09:57→14:29)
[2016-11-19] MEDS: Potassium Chloride 20 mEq/15 ml LIQ UD PO SCH (09:58)
[2016-11-19] MEDS: Cholestyramine 4 gm/Pkt UD PO SCH (09:59)
[2016-11-19] MEDS: Metoprolol Succinate 50 mg XL Tab PO SCH (09:59)
[2016-11-19] MEDS: Lactobacillus Acidophilus 500 MU Cap PO SCH ×2 (10:00→16:26)
--- NOTE | 2016-11-19 10:36 | RAD ---
HISTORY: chest pain COMPARISON: November 18, 2016. FINDINGS: LUNGS: Stable left lower lobe infiltrate. PLEURA: Stable left pleural effusion. CARDIOVASCULAR: No radiographic findings to suggest acute or significant cardiovascular disease. Position/ configuration of pacemaker device: Satisfactory. OSSEOUS STRUCTURES: No significant abnormalities. VISUALIZED UPPER ABDOMEN: Normal. OTHER FINDINGS: None. IMPRESSION: No significant interval change compared to the prior examination(s).
[2016-11-19 11:00] LABS: METAMYELOCYTE 1 % (0-0); NEUTROPHIL 87 % (42-75); REACTIVE LYMPHOCYTES 1 % (0-0); TOTAL CELLS COUNTED 100
[2016-11-19] MEDS ORDERED: Lidocaine 1% Inj (20ml) ONE (13:12)
--- NOTE | 2016-11-19 13:45 | PCM.SURG1 ---
Surgeon's Initial Post Op Note - Surgeon's Notes Surgeon: Ezra Martínez MD Jailer/Training Officer: NONE Type of Anesthesia: Local Pre-Operative Diagnosis: Poor venous access Operative Findings: Patent right basilic vein. Post-Operative Diagnosis: Poor venous access Operation Performed: Right basilic vein single lumen picc placement, 37 cm. Tip in SVC. Specimen/Specimens Removed: None Estimated Blood Loss: EBL {In ML}: 2 Blood Products Given: N/A Drains Used: No Drains Post-Op Condition: Fair Date of Surgery/Procedure: 11/19/16 Time of Surgery/Procedure: 13:40
--- NOTE | 2016-11-19 13:53 | CP.PCM.PN ---
Subjective - Date & Time of Evaluation Date of Evaluation: 11/19/16 Time of Evaluation: 07:00 - Subjective Subjective: Patient was transferred to telemetry yesterday because of chest pain. And unexplained marked leukopenia with lymphocytosis was noted at the same time, which has subsequently improved. Pleural fluid results showed a transudative effusion with no growth thus far. follow up chest x-ray done shows LLL density. A CT is plannned comfortable at present, no SOB or pain. Objective - Vital Signs/Intake and Output Vital Signs (last 24 hours): Temp Pulse Resp BP Pulse Ox 98.4 F 80 18 122/74 98 11/19/16 13:35 11/19/16 13:35 11/19/16 13:35 11/19/16 13:35 11/19/16 13:35 Intake and Output: 11/19/16 11/19/16 06:59 18:59 Intake Total 1000 Output Total 400 400 Balance -400 600 - Medications Medications: Current Medications Acetaminophen (Tylenol 650 Mg Supp) 650 mg RI ONCE PRN PRN Reason: Pain, moderate (4-7) Albuterol (Ventolin Hfa 90 Mcg/Actuation (8 G)) 2 puff IH Q4H PRN PRN Reason: Shortness of Breath Albuterol/Ipratropium (Duoneb 3 Mg/0.5 Mg (3 Ml) Ud) 3 ml IH RQ6 PRN PRN Reason: Shortness of Breath Aspirin (Ecotrin) 81 mg PO DAILY [facility] Atorvastatin Calcium (Lipitor) 20 mg PO HS [facility] Last Admin: 11/18/16 23:17 Dose: 20 mg Cholestyramine Resin (Questran) 4 gm PO DAILY [facility] Last Admin: 11/19/16 09:59 Dose: 4 gm Duloxetine HCl (Cymbalta) 30 mg PO DAILY [facility] Last Admin: 11/19/16 09:56 Dose: 30 mg Folic Acid (Folic Acid) 1 mg PO DAILY [facility] Last Admin: 11/19/16 09:57 Dose: 1 mg Heparin Sodium (Porcine) (Heparin) 5,000 units SC Q8 [facility] PRN Reason: Protocol Last Admin: 11/19/16 00:40 Dose: 5,000 units Home Med (Memantine Hcl [Namenda Xr]) 28 mg PO DAILY [facility] Last Admin: 11/19/16 09:57 Dose: 28 mg Vancomycin HCl 750 mg/ Sodium (Chloride) 250 mls @ 250 mls/hr IVPB Q12H [facility] Last Admin: 11/19/16 00:00 Dose: 250 mls/hr Aztreonam 1 gm/ Sodium (Chloride) 100 mls @ 100 mls/hr IVPB Q8 [facility] Last Admin: 11/19/16 10:00 Dose: 100 mls/hr Sodium Chloride (Sodium Chloride 0.9%) 1,000 mls @ 75 mls/hr IV .[id number] [facility] Stop: 11/19/16 18:01 Last Admin: 11/19/16 06:33 Dose: 75 mls/hr Lactobacillus Acidophilus (Bacid Acidophilus) 1 cap PO BID [facility] Last Admin: 11/19/16 10:00 Dose: 1 cap Metoprolol Succinate (Toprol Xl) 50 mg PO DAILY [facility] Last Admin: 11/19/16 09:59 Dose: Not Given Nitroglycerin (Nitro-Dur 0.2 Mg/Hr Patch) 1 patch TD DAILY [facility] Last Admin: 11/19/16 10:00 Dose: Not Given Pantoprazole Sodium (Protonix Inj) 40 mg IVP DAILY [facility] Last Admin: 11/19/16 09:59 Dose: 40 mg Potassium Chloride (Potassium Chloride Oral Soln) 40 meq PO DAILY [facility] Last Admin: 11/19/16 09:58 Dose: 40 meq Tamsulosin HCl (Flomax) 0.4 mg PO HS [facility] Last Admin: 11/18/16 21:40 Dose: 0.4 mg Vancomycin HCl (Vancocin (Oral/Rectal Use)) 250 mg PO Q6H [facility] Last Admin: 11/19/16 05:33 Dose: 250 mg - Labs Labs: 11/19/16 06:30 11/19/16 06:30 PT 13.6 SECONDS (9.6-11.2) H 11/18/16 17:30 INR 1.31 (0.92-1.08) H 11/18/16 17:30 APTT 33.9 SECONDS (23.3-32.5) H 11/14/16 09:56 - Constitutional Appears: Confused, Cachectic, Chronically Ill - Head Exam Head Exam: NORMOCEPHALIC - Eye Exam Eye Exam: PERRL. absent: Scleral icterus - ENT Exam ENT Exam: Mucous Membranes Dry - Neck Exam Neck Exam: absent: Lymphadenopathy - Respiratory Exam Respiratory Exam: Decreased Breath Sounds, Rhonchi - Cardiovascular Exam Cardiovascular Exam: REGULAR RHYTHM - GI/Abdominal Exam GI & Abdominal Exam: Distended, Soft - Rectal Exam Rectal Exam: Deferred - Extremities Exam Extremities Exam: Pedal Edema. absent: Calf Tenderness - Back Exam Back Exam: absent: CVA tenderness (L), CVA tenderness (R), paraspinal tenderness - Neurological Exam Neurological Exam: Alert, Altered, Awake Assessment and Plan (1) Pleural effusion on left Status: Acute (2) Pulmonary infiltrate present on computed tomography Status: Acute (3) Clostridium difficile colitis Status: Acute (4) Colitis Status: Acute (5) Dehydration Status: Acute (6) MRSA (methicillin resistant Staphylococcus aureus) infection Status: Acute
--- NOTE | 2016-11-19 14:20 | CP.PCM.PN ---
<Renee Ho - Last Filed: 11/19/16 15:00> Subjective - Date & Time of Evaluation Date of Evaluation: 11/19/16 Time of Evaluation: 07:05 - Subjective Subjective: 81M seen and examined at bedside. This morning patient has no acute complaints and currently denies any SOB, chest pain, abdominal pain. Objective - Vital Signs/Intake and Output Vital Signs (last 24 hours): Temp Pulse Resp BP Pulse Ox 36.9 C 74 18 124/76 98 11/19/16 13:35 11/19/16 13:54 11/19/16 13:54 11/19/16 13:54 11/19/16 13:54 Intake and Output: 11/19/16 11/19/16 06:59 18:59 Intake Total 1000 Output Total 400 400 Balance -400 600 - Medications Medications: Current Medications Acetaminophen (Tylenol 650 Mg Supp) [address] ONCE PRN PRN Reason: Pain, moderate (4-7) Albuterol (Ventolin Hfa 90 Mcg/Actuation (8 G)) 2 puff IH Q4H PRN PRN Reason: Shortness of Breath Albuterol/Ipratropium (Duoneb 3 Mg/0.5 Mg (3 Ml) Ud) 3 ml IH RQ6 PRN PRN Reason: Shortness of Breath Aspirin (Ecotrin) 81 mg PO DAILY [facility] Atorvastatin Calcium (Lipitor) 20 mg PO HS [facility] Last Admin: 11/18/16 23:17 Dose: 20 mg Cholestyramine Resin (Questran) 4 gm PO DAILY [facility] Last Admin: 11/19/16 09:59 Dose: 4 gm Duloxetine HCl (Cymbalta) 30 mg PO DAILY [facility] Last Admin: 11/19/16 09:56 Dose: 30 mg Folic Acid (Folic Acid) 1 mg PO DAILY [facility] Last Admin: 11/19/16 09:57 Dose: 1 mg Heparin Sodium (Porcine) (Heparin) 5,000 units SC Q8 [facility] PRN Reason: Protocol Last Admin: 11/19/16 00:40 Dose: 5,000 units Home Med (Memantine Hcl [Namenda Xr]) 28 mg PO DAILY [facility] Last Admin: 11/19/16 09:57 Dose: 28 mg Vancomycin HCl 750 mg/ Sodium (Chloride) 250 mls @ 250 mls/hr IVPB Q12H [facility] Last Admin: 11/19/16 00:00 Dose: 250 mls/hr Aztreonam 1 gm/ Sodium (Chloride) 100 mls @ 100 mls/hr IVPB Q8 [facility] Last Admin: 11/19/16 10:00 Dose: 100 mls/hr Sodium Chloride (Sodium Chloride 0.9%) 1,000 mls @ 75 mls/hr IV .[id number] [facility] Stop: 11/19/16 18:01 Last Admin: 11/19/16 06:33 Dose: 75 mls/hr Lactobacillus Acidophilus (Bacid Acidophilus) 1 cap PO BID [facility] Last Admin: 11/19/16 10:00 Dose: 1 cap Metoprolol Succinate (Toprol Xl) 50 mg PO DAILY [facility] Last Admin: 11/19/16 09:59 Dose: Not Given Nitroglycerin (Nitro-Dur 0.2 Mg/Hr Patch) 1 patch TD DAILY [facility] Last Admin: 11/19/16 10:00 Dose: Not Given Pantoprazole Sodium (Protonix Inj) 40 mg IVP DAILY [facility] Last Admin: 11/19/16 09:59 Dose: 40 mg Potassium Chloride (Potassium Chloride Oral Soln) 40 meq PO DAILY [facility] Last Admin: 11/19/16 09:58 Dose: 40 meq Tamsulosin HCl (Flomax) 0.4 mg PO HS [facility] Last Admin: 11/18/16 21:40 Dose: 0.4 mg Vancomycin HCl (Vancocin (Oral/Rectal Use)) 250 mg PO Q6H [facility] Last Admin: 11/19/16 05:33 Dose: 250 mg - Labs Labs: 11/19/16 06:30 11/19/16 06:30 PT 13.6 SECONDS (9.6-11.2) H 11/18/16 17:30 INR 1.31 (0.92-1.08) H 11/18/16 17:30 APTT 33.9 SECONDS (23.3-32.5) H 11/14/16 09:56 - Constitutional Appears: Well, No Acute Distress - Head Exam Head Exam: ATRAUMATIC, NORMAL INSPECTION - Eye Exam Eye Exam: EOMI, Normal appearance - ENT Exam ENT Exam: Mucous Membranes Moist, Normal Exam - Neck Exam Neck Exam: Full ROM, Normal Inspection - Respiratory Exam Respiratory Exam: Decreased Breath Sounds (LEFT base), NORMAL BREATHING PATTERN. absent: Wheezes - Cardiovascular Exam Cardiovascular Exam: REGULAR RHYTHM (Has AICD). absent: JVD, Murmur - GI/Abdominal Exam GI & Abdominal Exam: Soft, Tenderness (mild lower abdominal ttp), Normal Bowel Sounds - Extremities Exam Extremities Exam: Full ROM, Normal Capillary Refill, Normal Inspection. absent : Pedal Edema - Back Exam Back Exam: absent: rash noted - Neurological Exam Neurological Exam: Alert, Awake, Oriented x3 - Psychiatric Exam Psychiatric exam: Normal Affect, Normal Mood - Skin Skin Exam: Intact, Warm Assessment and Plan (1) Colitis Assessment & Plan: Continues to improve with fewer BMs, thickening, and mild pain. However, will keep NPO for today. - GI Consult (Dr Pickering) appreciated - Dr Sagastume (ID) consult appreciated - NPO except medications - Vancomycin 125mg, PO, Q6H - Questron 4g, PO, Daily - d/c of Cipro/IV Flagyl - IVF Status: Acute (2) Pleural effusion on left Assessment & Plan: Although apparent transudative thoracentesis (11/17), CXR still showing "stable " LL effusion which is concerning for possible empyema vs. trapped lung. Dr Beltre agrees to CT chest. - Pulmonary Consult (Dr Beltre) appreciated - Oxygen to maintain O2 saturation >92% - CTA (awaiting PICC line placement) Status: Acute (3) UTI (urinary tract infection) Assessment & Plan: UCx positive for MRSA and enterobacter, started on abx 11/18. 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 - Hepatitis RNA Quant sent Status: Acute (5) DVT prophylaxis Assessment & Plan: Pt high risk and has IVC, however placed on prophylaxis. - Heparin 5,000U, SC, Q8H Status: Acute (6) CAD (coronary artery disease) Assessment & Plan: Hx CABG, AICD, asymptomatic. 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 - c/w DuoNebs - c/w Ventolin Status: Chronic (8) Dementia Assessment & Plan: Appears to be very mild with some forgetfulness - c/w Cymbalta - c/w Namenda Status: Chronic (9) BPH (benign prostatic hypertrophy) Assessment & Plan: Requiring suprapubic catheter, scheduled for TURP(?) 11/[address] York. - Urology Consult (Dr York) appreciated: replaced suprapubic catheter - c/w FloMax Status: Chronic - Assessment and Plan (Free Text) Assessment: 81M admitted with c. diff and later determined UTI transferred to Telemetry last night after sustaining an acute event involving substernal chest pain. EKG at the time of the event despite significant baseline artifact did not reflect acute pathology (none available for comparison), nitro/ASA administered. Working diagnoses Sepsis vs. VT vs. PE (despite IVC and DVT prophylaxis) vs. anxiety vs. medication interaction. This morning patient was clinically improved, mildly hypotensive, AM labs reflecting reversal of derangements seen during [employer] (Lactate- 1.0, no longer leukopenic). - f/u official echocardiography read - f/u Cardiology consult (Dr Rubio) - Repeat CT non-con chest - minimize blood pressure lowering agents at this time - maintain NPO until evaluation by cardiology <Yash Mccloud - Last Filed: 11/23/16 11:05> Objective - Vital Signs/Intake and Output Vital Signs (last 24 hours): Temp Pulse Resp BP Pulse Ox 98.1 F 78 18 142/70 99 11/23/16 07:37 11/23/16 09:08 11/23/16 07:37 11/23/16 09:08 11/23/16 07:37 Intake and Output: 11/23/16 11/23/16 06:59 18:59 Intake Total 480 Output Total 1000 Balance -520 - Medications Medications: Current Medications Acetaminophen (Tylenol 650 Mg Supp) [address] ONCE PRN PRN Reason: Pain, moderate (4-7) Albuterol (Ventolin Hfa 90 Mcg/Actuation (8 G)) 2 puff IH Q4H PRN PRN Reason: Shortness of Breath Last Admin: 11/20/16 14:42 Dose: 2 puff Albuterol/Ipratropium (Duoneb 3 Mg/0.5 Mg (3 Ml) Ud) 3 ml IH RQ6 PRN PRN Reason: Shortness of Breath Aspirin (Ecotrin) 81 mg PO DAILY [facility] Last Admin: 11/21/16 08:39 Dose: 81 mg Atorvastatin Calcium (Lipitor) 20 mg PO HS [facility] Last Admin: 11/22/16 22:16 Dose: 20 mg Cholestyramine Resin (Questran) 4 gm PO DAILY [facility] Last Admin: 11/23/16 09:06 Dose: 4 gm Duloxetine HCl (Cymbalta) 30 mg PO DAILY [facility] Last Admin: 11/23/16 09:07 Dose: 30 mg Famotidine (Pepcid) 20 mg PO BID [facility] Last Admin: 11/23/16 09:06 Dose: 20 mg Folic Acid (Folic Acid) 1 mg PO DAILY [facility] Last Admin: 11/23/16 09:06 Dose: 1 mg Heparin Sodium (Porcine) (Heparin) 5,000 units SC Q8 [facility] PRN Reason: Protocol Stop: 11/23/16 23:59 Last Admin: 11/23/16 09:07 Dose: 5,000 units Home Med (Memantine Hcl [Namenda Xr]) 28 mg PO DAILY [facility] Last Admin: 11/23/16 09:08 Dose: 28 mg Vancomycin HCl 750 mg/ Sodium (Chloride) 250 mls @ 250 mls/hr IVPB Q12H [facility] Last Admin: 11/23/16 10:37 Dose: 250 mls/hr Lactobacillus Acidophilus (Bacid Acidophilus) 1 cap PO BID [facility] Last Admin: 11/23/16 09:05 Dose: 1 cap Magnesium Oxide (Mag-Ox) 400 mg PO DAILY [facility] Last Admin: 11/23/16 09:07 Dose: 400 mg Metoprolol Succinate (Toprol Xl) 50 mg PO DAILY [facility] Last Admin: 11/23/16 09:07 Dose: 50 mg Nitroglycerin (Nitro-Dur 0.2 Mg/Hr Patch) 1 patch TD DAILY [facility] Last Admin: 11/23/16 09:08 Dose: 1 patch Potassium Chloride (Potassium Chloride Oral Soln) 40 meq PO DAILY [facility] Last Admin: 11/23/16 09:06 Dose: 40 meq Rifaximin (Xifaxan) 550 mg PO BID [facility] Last Admin: 11/23/16 09:05 Dose: 550 mg Tamsulosin HCl (Flomax) 0.4 mg PO HS [facility] Last Admin: 11/22/16 22:16 Dose: 0.4 mg Vancomycin HCl (Vancocin (Oral/Rectal Use)) 250 mg PO Q6H [facility] Last Admin: 11/23/16 10:38 Dose: 250 mg - Labs Labs: 11/22/16 05:30 11/22/16 05:30 PT 13.6 SECONDS (9.6-11.2) H 11/18/16 17:30 INR 1.31 (0.92-1.08) H 11/18/16 17:30 APTT 33.9 SECONDS (23.3-32.5) H 11/14/16 09:56 Assessment and Plan (1) Pleural effusion on left Status: Acute (2) UTI (urinary tract infection) Status: Acute (3) COPD (chronic obstructive pulmonary disease) Status: Chronic (4) Dementia Status: Chronic (5) Clostridium difficile colitis Status: Acute (6) MRSA (methicillin resistant Staphylococcus aureus) infection Status: Acute (7) Liver cyst Status: Acute - Assessment and Plan (Free Text) Plan: I was present during evaluation and personally examined patient. Discussed with Dr Ho plans of tx and management. Yash Mccloud M.D.
--- NOTE | 2016-11-19 19:43 | CARD ---
APPROVED REPORT EXAM: Two-dimensional and M-mode echocardiogram with Doppler and color Doppler. Other Information Quality : GoodRhythm : Pacemaker INDICATION Chest Pain Surgery/Intervention ICD/Pacemaker: CABD DIMENSIONS IVSd1.48 (0.7-1.1cm)LVDd4.18 (3.9-5.9cm) LVOT Diameter2.11 (1.8-2.4cm)PWd0.79 (0.7-1.1cm) IVSs1.08 (0.8-1.2cm)LVDs3.77 (2.5-4.0cm) FS (%) 9.8 %PWs1.04 (0.8-1.2cm) LVEF (%)50.0 (>50%) M-Mode DIMENSIONS Left Atrium (MM)4.93 (2.5-4.0cm)IVSd0.60 (0.7-1.1cm) Aortic Root2.98 (2.2-3.7cm)LVDd7.31 (4.0-5.6cm) Aortic Cusp Exc.2.18 (1.5-2.0cm)PWd0.66 (0.7-1.1cm) IVSs1.03 cmFS (%) 24 % LVDs5.53 (2.0-3.8cm)PWs0.86 cm Mitral Valve MV E [place]19.8cm/sMV DECEL [id number] A [place]85.5cm/s MV [id number]/A ratio1.1MVA (PHT)4.16cm2 TDI Lateral E' Peak V10.59cm/sMedial E' Peak V5.13cm/sE/Lateral E'9.0 E/Medial E'18.7 Tricuspid Valve TR Peak Qoykekdn537pd/sRAP [id number] Peak Gr.19mmHg [id number] LEFT VENTRICLE The left ventricle is normal size. There is borderline to mild concentric left ventricular hypertrophy. Left ventricle systolic function is borderline. Mild Septal hypokinesis Transmitral Doppler flow pattern is Grade I-abnormal relaxation pattern. RIGHT VENTRICLE The right ventricle is normal size. There is normal right ventricular wall thickness. The right ventricular systolic function is normal. There is a pacemaker lead in the right ventricle. ATRIA The left atrium is mildly dilated. The right atrium size is normal. AORTIC VALVE The aortic valve is mildly thickened. There is mild aortic regurgitation. There is no aortic valvular stenosis. MITRAL VALVE The mitral valve is mildly thickened. There is no mitral valve stenosis. Mitral regurgitation is trace to mild. TRICUSPID VALVE The tricuspid valve is normal in structure There is mild tricuspid regurgitation. PULMONIC VALVE The pulmonary valve is normal in structure and function. There is no pulmonic valvular regurgitation. GREAT VESSELS The aortic root is normal in size. The IVC is normal in size and collapses >50% with inspiration. PERICARDIAL EFFUSION The pericardium appears normal. <Conclusion> The left ventricle is normal size. There is borderline to mild concentric left ventricular hypertrophy. Left ventricle systolic function is borderline. Mild Septal hypokinesis Transmitral Doppler flow pattern is Grade I-abnormal relaxation pattern. There is mild aortic regurgitation.
--- NOTE | 2016-11-19 19:57 | CP.PCM.CON ---
History of Present Illness - History of Present Illness History of Present Illness: Cardiology consultation covering for Dr. Calvo. Previous carediac history obtained from Dr. Calvo and patient's daughter. Patient is a 81 year old male with history CAD s/p CABG, ischemic cardiomyopathy s/p AICD, who initially presented with recurrent diarrhea. the daughter states the patient has had recurrent C. diff, which was starting to improve. He presented to [facility] one week ago with increased diarrhea and lowe abdominal pain. The patient had suprapubic catheter placed by Dr. York. He had thoracentesis due to pleural effusion which has been transudative. The patient developed chest pain and was brought to telemetry. The patient has nonspecific pain everywhere, including abdomen, arms, feet. Review of Systems - Constitutional Constitutional: Weakness - EENT Eyes: absent: As Per HPI, Blind Spots, Blurred Vision, Change in Vision, Decreased Night Vision, Diplopia, Discharge, Dry Eye, Exophthalmos, Floaters, Irritation, Itchy Eyes, Loss of Peripheral Vision, Pain, Photophobia, Requires Corrective Lenses, Sees Flashes, Spots in Vision, Tunnel Vision, Other Visual Disturbances, Loss of Vision, Other Ears: absent: As Per HPI, Decreased Hearing, Ear Discharge, Ear Pain, Tinnitus, Abnormal Hearing, Disequilibrium, Dizziness, Other Nose/Mouth/Throat: Dry Mouth - Cardiovascular Cardiovascular: absent: As Per HPI, Acrocyanosis, Chest Pain, Chest Pain at Rest , Chest Pain with Activity, Claudication, Diaphoresis, Dyspnea, Dyspnea on Exertion, Edema, Irregular Heart Rhythm, Pain Radiating to Arm/Neck/Jaw, Leg Edema, Leg Ulcers, Lightheadedness, Orthopnea, Palpitations, Paroxysmal Nocturnal Dyspnea, Pedal Edema, Radiating Pain, Rapid Heart Rate, Slow Heart Rate, Syncope, Other - Respiratory Respiratory: absent: As Per HPI, Cough, Dyspnea, Hemoptysis, Dyspnea on Exertion , Wheezing, Snoring, Stridor, Pain on Inspiration, Chest Congestion, Excessive Mucous Production, Change in Mucous Color, Pain with Coughing, Other - Gastrointestinal Gastrointestinal: Diarrhea, Loose Stools - Genitourinary Genitourinary: absent: As Per HPI, Change in Urinary Stream, Difficulty Urinating, Dysuria, Flank Pain, Hematuria, Pyuria, Nocturia, Urinary Incontinence, Urinary Frequency, Urinary Hesitance, Urinary Urgency, Voiding Freq/Small Amts, Freq UTI, Hx Renal/Bladder Calculi, Hx /Renal Surgery, Bladder Distension, Other - Musculoskeletal Musculoskeletal: absent: As Per HPI, Abnormal Gait, Arthralgias, Atrophy, Back Pain, Deformity, Joint Swelling, Limited Range of Motion, Loss of Height, Muscle Cramps, Muscle Weakness, Myalgias, Neck Pain, Numbness, Radiating Pain into Limb, Stiffness, Tingling, Other - Integumentary Integumentary: absent: As Per HPI, Acne, Alopecia, Bleeding Lesions, Change in Hair, Change in Nails, Change in Pigmentation, Changing Lesions, Dry Skin, Erythema, Furuncle, Hirsutism, Lesions, New Lesions, Non-Healing Lesions, Photosensitivity, Pruritus, Rash, Skin Pain, Skin Ulcer, Sores, Striae, Swelling , Unusual Bruising, Wounds, Jaundice, Other - Neurological Neurological: absent: As Per HPI, Abnormal Gait, Abnormal Hearing, Abnormal Movements, Abnormal Speech, Behavioral Changes, Burning Sensations, Confusion, Convulsions, Disequilibrium, Dizziness, Numbness, Focal Weakness, Frequent Falls , Headaches, Lack of Coordination, Loss of Vision, Memory Loss, Paresthesias, Radicular Pain, Restless Legs, Sensory Deficit, Syncope, Tingling, Tremor, Vertigo, Weakness, Other Visual Disturbances, Other - Psychiatric Psychiatric: absent: As Per HPI, Abnormal Sleep Pattern, Anhedonia, Anxiety, Auditory Hallucinations, Behavioral Changes, Change in Appetite, Change in Libido, Confusion, Depression, Difficulty Concentrating, Hallucinations, Homicidal Ideation, Hopelessness, Irritability, Memory Loss, Mood Swings, Panic Attacks, Paranoia, Suicidal Ideation, Visual Hallucinations, Tactile Hallucinations, Other - Endocrine Endocrine: absent: As Per HPI, Change in Body Appearance, Change in Libido, Cold Intolorance, Deepening of Voice, Excessive Sweating, Fatigue, Flushing, Heat Intolorance, Increase in Ring/Shoe/Hat Size, Palpitations, Polydipsia, Polyphagia, Polyuria, Other - Hematologic/Lymphatic Hematologic: absent: As Per HPI, Easy Bleeding, Easy Bruising, Lymphadenopathy, Other Past Patient History - Infectious Disease Hx of Infectious Diseases: None - Past Medical History & Family History Past Medical History?: Yes - Past Social History Smoking Status: Heavy Smoker > 10 Cigarettes Daily - CARDIAC Hx Cardiac Disorders: Yes Hx Hypertension: Yes Other/Comment: hyperlipidemia - PULMONARY Hx Respiratory Disorders: Yes Hx Pneumonia: Yes - NEUROLOGICAL Hx Neurological Disorder: Yes Hx Dementia: Yes - RENAL Hx Chronic Kidney Disease: No - ENDOCRINE/METABOLIC Hx Endocrine Disorders: No - HEMATOLOGICAL/ONCOLOGICAL Hx Blood Disorders: Yes Hx Shingles: Yes - INTEGUMENTARY Hx Dermatological Problems: No - MUSCULOSKELETAL/RHEUMATOLOGICAL Hx Musculoskeletal Disorders: Yes Hx Falls: Yes - GASTROINTESTINAL Hx Gastrointestinal Disorders: No - GENITOURINARY/GYNECOLOGICAL Hx Genitourinary Disorders: Yes Hx Prostate Problems: Yes Hx Urinary Tract Infection: Yes Other/Comment: Urinary retention - PSYCHIATRIC Hx Psychophysiologic Disorder: No Hx Substance Use: No - SURGICAL HISTORY Hx Surgeries: Yes Hx Angioplasty: Yes Hx Appendectomy: Yes Hx Cholecystectomy: Yes Hx Coronary Artery Bypass Graft: Yes Hx Open Heart Surgery: Yes - ANESTHESIA Hx Anesthesia: Yes Hx Anesthesia Reactions: No Meds Allergies/Adverse Reactions: Allergies Allergy/AdvReac Type Severity Reaction Status Date / Time Penicillins Allergy Verified 11/13/16 14:44 - Medications Medications: Current Medications Acetaminophen (Tylenol 650 Mg Supp) 650 mg AL ONCE PRN PRN Reason: Pain, moderate (4-7) Albuterol (Ventolin Hfa 90 Mcg/Actuation (8 G)) 2 puff IH Q4H PRN PRN Reason: Shortness of Breath Albuterol/Ipratropium (Duoneb 3 Mg/0.5 Mg (3 Ml) Ud) 3 ml IH RQ6 PRN PRN Reason: Shortness of Breath Aspirin (Ecotrin) 81 mg PO DAILY [facility] Atorvastatin Calcium (Lipitor) 20 mg PO HS [facility] Last Admin: 11/18/16 23:17 Dose: 20 mg Cholestyramine Resin (Questran) 4 gm PO DAILY [facility] Last Admin: 11/19/16 09:59 Dose: 4 gm Duloxetine HCl (Cymbalta) 30 mg PO DAILY [facility] Last Admin: 11/19/16 09:56 Dose: 30 mg Folic Acid (Folic Acid) 1 mg PO DAILY [facility] Last Admin: 11/19/16 09:57 Dose: 1 mg Heparin Sodium (Porcine) (Heparin) 5,000 units SC Q8 MICHELLE PRN Reason: Protocol Last Admin: 11/19/16 16:26 Dose: 5,000 units Home Med (Memantine Hcl [Namenda Xr]) 28 mg PO DAILY [facility] Last Admin: 11/19/16 09:57 Dose: 28 mg Vancomycin HCl 750 mg/ Sodium (Chloride) 250 mls @ 250 mls/hr IVPB Q12H [facility] Last Admin: 11/19/16 12:30 Dose: 250 mls/hr Aztreonam 1 gm/ Sodium (Chloride) 100 mls @ 100 mls/hr IVPB Q8 [facility] Last Admin: 11/19/16 16:25 Dose: 100 mls/hr Lactobacillus Acidophilus (Bacid Acidophilus) 1 cap PO BID [facility] Last Admin: 11/19/16 16:26 Dose: 1 cap Metoprolol Succinate (Toprol Xl) 50 mg PO DAILY [facility] Last Admin: 11/19/16 09:59 Dose: Not Given Nitroglycerin (Nitro-Dur 0.2 Mg/Hr Patch) 1 patch TD DAILY [facility] Last Admin: 11/19/16 14:29 Dose: 1 patch Pantoprazole Sodium (Protonix Inj) 40 mg IVP DAILY [facility] Last Admin: 11/19/16 09:59 Dose: 40 mg Potassium Chloride (Potassium Chloride Oral Soln) 40 meq PO DAILY [facility] Last Admin: 11/19/16 09:58 Dose: 40 meq Tamsulosin HCl (Flomax) 0.4 mg PO HS [facility] Last Admin: 11/18/16 21:40 Dose: 0.4 mg Vancomycin HCl (Vancocin (Oral/Rectal Use)) 250 mg PO Q6H [facility] Last Admin: 11/19/16 16:31 Dose: 250 mg Physical Exam - Constitutional Appears: Non-toxic - Head Exam Head Exam: NORMAL INSPECTION - Eye Exam Eye Exam: Normal appearance - ENT Exam ENT Exam: Mucous Membranes Moist - Neck Exam Neck exam: Positive for: Full Rom - Respiratory Exam Respiratory Exam: NORMAL BREATHING PATTERN - Cardiovascular Exam Cardiovascular Exam: REGULAR RHYTHM - GI/Abdominal Exam GI & Abdominal Exam: Normal Bowel Sounds - Rectal Exam Rectal Exam: Deferred - Extremities Exam Extremities exam: Negative for: pedal edema - Back Exam Back exam: NORMAL INSPECTION - Neurological Exam Neurological exam: Alert, Oriented x3 - Psychiatric Exam Psychiatric exam: Normal Affect - Skin Skin Exam: Normal Color Results - Vital Signs Recent Vital Signs: Last Vital Signs Temp 98.1 F 11/19/16 19:26 Pulse 88 11/19/16 19:26 Resp 20 11/19/16 19:26 BP 124/71 11/19/16 19:26 Pulse Ox 98 11/19/16 19:26 - Labs Result Diagrams: 11/19/16 06:30 11/19/16 06:30 Labs: Laboratory Results - last 24 hr 11/18/16 11/19/16 11/19/16 21:00 01:20 06:30 WBC 7.1 D RBC 3.87 L Hgb 11.7 L D Hct 35.5 MCV 91.8 MCH 30.4 MCHC 33.1 RDW 15.2 H Plt Count 119 L MPV 8.2 Neut % (Auto) 95.8 H Lymph % (Auto) 2.8 L [place] % (Auto) 1.1 Eos % (Auto) 0.2 Baso % (Auto) 0.1 Neut # 6.8 Lymph # 0.2 L [place] # 0.1 Eos # 0.0 Baso # 0.0 Neutrophils % (Manual) 87 H Band Neutrophils % 5 H Lymphocytes % (Manual) 4 L Reactive Lymphs % 1 H Monocytes % (Manual) 2 Metamyelocytes % 1 H Platelet Estimate Decreased L Hypochromasia (manual) Slight Anisocytosis (manual) Slight Sodium 141 Potassium 4.1 Chloride 108 H Carbon Dioxide 24 Anion Gap 13 BUN 9 Creatinine 1.1 Est GFR ( Amer) > 60 Est GFR (Non-Af Amer) > 60 Random Glucose 88 Lactic Acid Calcium 7.4 L Total Bilirubin 0.5 AST 34 ALT 15 L D Alkaline Phosphatase 55 Troponin I 0.1180 Total Protein 4.6 L Albumin 2.1 L D Globulin 2.5 Albumin/Globulin Ratio 0.8 L Procalcitonin Vancomycin Trough 8.9 11/19/16 11/19/16 07:00 08:53 WBC RBC Hgb Hct MCV MCH MCHC RDW Plt Count MPV Neut % (Auto) Lymph % (Auto) [place] % (Auto) Eos % (Auto) Baso % (Auto) Neut # Lymph # [place] # Eos # Baso # Neutrophils % (Manual) Band Neutrophils % Lymphocytes % (Manual) Reactive Lymphs % Monocytes % (Manual) Metamyelocytes % Platelet Estimate Hypochromasia (manual) Anisocytosis (manual) Sodium Potassium Chloride Carbon Dioxide Anion Gap BUN Creatinine Est GFR ( Amer) Est GFR (Non-Af Amer) Random Glucose Lactic Acid 1.0 Calcium Total Bilirubin AST ALT Alkaline Phosphatase Troponin I 0.0570 Total Protein Albumin Globulin Albumin/Globulin Ratio Procalcitonin 0.40 Vancomycin Trough - EKG Data EKG Interpreted by: Myself Assessment & Plan (1) CAD (coronary artery disease) Assessment and Plan: history of CABG. EKG reviewed. no evidence of acute ischemia, intermittent PAC. recommend check electrolytes. Keep K > 4, Mag > 2.0. will check echocardiogram Status: Chronic (2) Chest pain Assessment and Plan: seems atypical for angina. recommend continued medical therapy. no cardiac reason to be NPO Status: Acute (3) Ischemic cardiomyopathy Assessment and Plan: appears well compensated and not in heart failure Status: Acute
--- NOTE | 2016-11-19 21:30 | CARD ---
APPROVED REPORT EKG Measurement Heart [id number] <Conclusion> Sinus tachycardia with premature supraventricular complexes and premature ventricular complexes or fusion complexes Nonspecific ST abnormality Abnormal ECG
--- NOTE | 2016-11-19 21:40 | CARD ---
APPROVED REPORT EKG Measurement Heart [id number] <Conclusion> Poor data quality, interpretation may be adversely affected Atrial fibrillation with rapid ventricular response Right superior axis deviation Inferior infarct, age undetermined Abnormal ECG
[2016-11-20] MEDS: Aztreonam 1 GM in Sodium Chloride 0.9% 100 ML IVPB SCH ×3 (00:31→17:10)
--- NOTE | 2016-11-20 06:53 | CP.PCM.PN ---
<Renee Ho - Last Filed: 11/20/16 12:20> Subjective - Date & Time of Evaluation Date of Evaluation: 11/20/16 Time of Evaluation: 06:53 - Subjective Subjective: 81M seen and examined at bedside. This morning patient has no acute complaints and currently denies any SOB, chest pain, abdominal pain. Objective - Vital Signs/Intake and Output Vital Signs (last 24 hours): Temp Pulse Resp BP Pulse Ox 36.6 C 80 16 136/73 98 11/20/16 05:04 11/20/16 05:04 11/20/16 05:04 11/20/16 05:04 11/20/16 05:04 Intake and Output: 11/19/16 11/20/16 18:59 06:59 Intake Total 1000 Output Total 400 Balance 600 - Medications Medications: Current Medications Acetaminophen (Tylenol 650 Mg Supp) 650 mg FL ONCE PRN PRN Reason: Pain, moderate (4-7) Albuterol (Ventolin Hfa 90 Mcg/Actuation (8 G)) 2 puff IH Q4H PRN PRN Reason: Shortness of Breath Albuterol/Ipratropium (Duoneb 3 Mg/0.5 Mg (3 Ml) Ud) 3 ml IH RQ6 PRN PRN Reason: Shortness of Breath Aspirin (Ecotrin) 81 mg PO DAILY [facility] Atorvastatin Calcium (Lipitor) 20 mg PO HS [facility] Last Admin: 11/19/16 22:56 Dose: 20 mg Cholestyramine Resin (Questran) 4 gm PO DAILY [facility] Last Admin: 11/19/16 09:59 Dose: 4 gm Duloxetine HCl (Cymbalta) 30 mg PO DAILY [facility] Last Admin: 11/19/16 09:56 Dose: 30 mg Folic Acid (Folic Acid) 1 mg PO DAILY [facility] Last Admin: 11/19/16 09:57 Dose: 1 mg Heparin Sodium (Porcine) (Heparin) 5,000 units SC Q8 MICHELLE PRN Reason: Protocol Last Admin: 11/20/16 00:34 Dose: 5,000 units Home Med (Memantine Hcl [Namenda Xr]) 28 mg PO DAILY [facility] Last Admin: 11/19/16 09:57 Dose: 28 mg Vancomycin HCl 750 mg/ Sodium (Chloride) 250 mls @ 250 mls/hr IVPB Q12H [facility] Last Admin: 11/19/16 22:57 Dose: 250 mls/hr Aztreonam 1 gm/ Sodium (Chloride) 100 mls @ 100 mls/hr IVPB Q8 [facility] Last Admin: 11/20/16 00:31 Dose: 100 mls/hr Lactobacillus Acidophilus (Bacid Acidophilus) 1 cap PO BID [facility] Last Admin: 11/19/16 16:26 Dose: 1 cap Metoprolol Succinate (Toprol Xl) 50 mg PO DAILY [facility] Last Admin: 11/19/16 09:59 Dose: Not Given Nitroglycerin (Nitro-Dur 0.2 Mg/Hr Patch) 1 patch TD DAILY [facility] Last Admin: 11/19/16 14:29 Dose: 1 patch Pantoprazole Sodium (Protonix Inj) 40 mg IVP DAILY [facility] Last Admin: 11/19/16 09:59 Dose: 40 mg Potassium Chloride (Potassium Chloride Oral Soln) 40 meq PO DAILY [facility] Last Admin: 11/19/16 09:58 Dose: 40 meq Tamsulosin HCl (Flomax) 0.4 mg PO HS [facility] Last Admin: 11/19/16 22:55 Dose: 0.4 mg Vancomycin HCl (Vancocin (Oral/Rectal Use)) 250 mg PO Q6H [facility] Last Admin: 11/19/16 22:57 Dose: 250 mg - Labs Labs: 11/19/16 06:30 11/19/16 06:30 PT 13.6 SECONDS (9.6-11.2) H 11/18/16 17:30 INR 1.31 (0.92-1.08) H 11/18/16 17:30 APTT 33.9 SECONDS (23.3-32.5) H 11/14/16 09:56 - Constitutional Appears: Well, Non-toxic, No Acute Distress - Head Exam Head Exam: ATRAUMATIC, NORMAL INSPECTION - Eye Exam Eye Exam: EOMI, Normal appearance - ENT Exam ENT Exam: Mucous Membranes Moist, Normal Exam - Neck Exam Neck Exam: Full ROM, Normal Inspection - Respiratory Exam Respiratory Exam: Decreased Breath Sounds (LEFT base), NORMAL BREATHING PATTERN. absent: Wheezes - Cardiovascular Exam Cardiovascular Exam: REGULAR RHYTHM. absent: JVD - GI/Abdominal Exam GI & Abdominal Exam: Soft, Normal Bowel Sounds. absent: Tenderness - Extremities Exam Extremities Exam: Full ROM, Normal Capillary Refill, Normal Inspection. absent : Pedal Edema - Neurological Exam Neurological Exam: Alert, Awake - Psychiatric Exam Psychiatric exam: Normal Affect, Normal Mood - Skin Skin Exam: Normal Color, Warm Assessment and Plan (1) Colitis Assessment & Plan: Continues to improve, BMs resolving. Re-started on diet. - GI Consult (Dr Pickering) appreciated - Dr Sagastume (ID) consult appreciated - Diet: Heart Healthy - Vancomycin 125mg, PO, Q6H - Questron 4g, PO, Daily - c/w maint IVF as nursing reporting patient not eating well Status: Acute (2) Pleural effusion on left Assessment & Plan: Awaiting cytology and culture from thoracentesis (11/17), CT this morning showing moderate effusion and infiltrate/?pneumonia. - Pulmonary Consult (Dr Beltre) appreciated - Oxygen to maintain O2 saturation >92% - Incentive Spirometry Status: Acute (3) UTI (urinary tract infection) Assessment & Plan: UCx positive for MRSA and enterobacter, started on abx 11/18. - Dr Sagastume (ID) consult appreciated - UCx: MRSA/enterobacter - c/w Vancomycin 750mg Q12H - Vancomycin trough 11/20 @ 1030 - c/w Azactam 1g Q8H Status: Acute (4) Hepatitis C antibody test positive Assessment & Plan: Ordered at request of ID and found to be positive. - Hepatitis RNA Quant sent Status: Acute (5) DVT prophylaxis Assessment & Plan: Pt high risk and has IVC, however placed on prophylaxis. - Heparin 5,000U, SC, Q8H Status: Acute (6) CAD (coronary artery disease) Assessment & Plan: Hx CABG, AICD, asymptomatic. - c/w Statin 20mg, PO, qHS - c/w Nitro TD Daily - Lopressor 50mg, PO, Q12H Status: Chronic (7) COPD (chronic obstructive pulmonary disease) Assessment & Plan: Current every day heavy smoker, CT (11/14) showing bullous emphysema. - c/w DuoNebs - c/w Ventolin Status: Chronic (8) Dementia Assessment & Plan: Appears to be very mild with some forgetfulness - c/w Cymbalta - c/w Namenda Status: Chronic (9) BPH (benign prostatic hypertrophy) Assessment & Plan: Requiring suprapubic catheter, scheduled for TURP(?) 11/[address] York. - Urology Consult (Dr York) appreciated: replaced suprapubic catheter - c/w FloMax Status: Chronic - Assessment and Plan (Free Text) Assessment: 81M patient continues to improve after acute event requiring transfer to Telemetry. Does not seem consistent with cardiac or pulmonary event, " transient sepsis" less likely. Will c/w current management antibiotic treatment for UTI/c.diff. PT recommends home with [facility] (which he had before) when medically indicated. Plan: - Echocardiography: LV systolic function borderline, mild septal hypokinesis, mild AR - Cardiology consult (Dr Sharma): no evidence of acute ischemia, not in heart failure, Keep K > 4, Mag > 2.0 <Yash Mccloud - Last Filed: 11/23/16 11:06> Objective - Vital Signs/Intake and Output Vital Signs (last 24 hours): Temp Pulse Resp BP Pulse Ox 98.1 F 78 18 142/70 99 11/23/16 07:37 11/23/16 09:08 11/23/16 07:37 11/23/16 09:08 11/23/16 07:37 Intake and Output: 11/23/16 11/23/16 06:59 18:59 Intake Total 480 Output Total 1000 Balance -520 - Medications Medications: Current Medications Acetaminophen (Tylenol 650 Mg Supp) 650 mg FL ONCE PRN PRN Reason: Pain, moderate (4-7) Albuterol (Ventolin Hfa 90 Mcg/Actuation (8 G)) 2 puff IH Q4H PRN PRN Reason: Shortness of Breath Last Admin: 11/20/16 14:42 Dose: 2 puff Albuterol/Ipratropium (Duoneb 3 Mg/0.5 Mg (3 Ml) Ud) 3 ml IH RQ6 PRN PRN Reason: Shortness of Breath Aspirin (Ecotrin) 81 mg PO DAILY [facility] Last Admin: 11/21/16 08:39 Dose: 81 mg Atorvastatin Calcium (Lipitor) 20 mg PO HS [facility] Last Admin: 11/22/16 22:16 Dose: 20 mg Cholestyramine Resin (Questran) 4 gm PO DAILY [facility] Last Admin: 11/23/16 09:06 Dose: 4 gm Duloxetine HCl (Cymbalta) 30 mg PO DAILY [facility] Last Admin: 11/23/16 09:07 Dose: 30 mg Famotidine (Pepcid) 20 mg PO BID [facility] Last Admin: 11/23/16 09:06 Dose: 20 mg Folic Acid (Folic Acid) 1 mg PO DAILY [facility] Last Admin: 11/23/16 09:06 Dose: 1 mg Heparin Sodium (Porcine) (Heparin) 5,000 units SC Q8 [facility] PRN Reason: Protocol Stop: 11/23/16 23:59 Last Admin: 11/23/16 09:07 Dose: 5,000 units Home Med (Memantine Hcl [Namenda Xr]) 28 mg PO DAILY [facility] Last Admin: 11/23/16 09:08 Dose: 28 mg Vancomycin HCl 750 mg/ Sodium (Chloride) 250 mls @ 250 mls/hr IVPB Q12H [facility] Last Admin: 11/23/16 10:37 Dose: 250 mls/hr Lactobacillus Acidophilus (Bacid Acidophilus) 1 cap PO BID [facility] Last Admin: 11/23/16 09:05 Dose: 1 cap Magnesium Oxide (Mag-Ox) 400 mg PO DAILY [facility] Last Admin: 11/23/16 09:07 Dose: 400 mg Metoprolol Succinate (Toprol Xl) 50 mg PO DAILY [facility] Last Admin: 11/23/16 09:07 Dose: 50 mg Nitroglycerin (Nitro-Dur 0.2 Mg/Hr Patch) 1 patch TD DAILY [facility] Last Admin: 11/23/16 09:08 Dose: 1 patch Potassium Chloride (Potassium Chloride Oral Soln) 40 meq PO DAILY [facility] Last Admin: 11/23/16 09:06 Dose: 40 meq Rifaximin (Xifaxan) 550 mg PO BID [facility] Last Admin: 11/23/16 09:05 Dose: 550 mg Tamsulosin HCl (Flomax) 0.4 mg PO HS [facility] Last Admin: 11/22/16 22:16 Dose: 0.4 mg Vancomycin HCl (Vancocin (Oral/Rectal Use)) 250 mg PO Q6H [facility] Last Admin: 11/23/16 10:38 Dose: 250 mg - Labs Labs: 11/22/16 05:30 11/22/16 05:30 PT 13.6 SECONDS (9.6-11.2) H 11/18/16 17:30 INR 1.31 (0.92-1.08) H 11/18/16 17:30 APTT 33.9 SECONDS (23.3-32.5) H 11/14/16 09:56 Assessment and Plan (1) Pleural effusion on left Status: Acute (2) UTI (urinary tract infection) Status: Acute (3) COPD (chronic obstructive pulmonary disease) Status: Chronic (4) Dementia Status: Chronic (5) Clostridium difficile colitis Status: Acute (6) MRSA (methicillin resistant Staphylococcus aureus) infection Status: Acute (7) Liver cyst Status: Acute - Assessment and Plan (Free Text) Plan: Discussed with Dr Georgia forman plans of tx and management Yash Mccloud M.D.
[2016-11-20 08:24] LABS: BASO % 0.5 % (0.0-2.0); EOS # 0.1 K/uL (0.0-0.7); EOS % 3.6 % (0.0-4.0); LYMPH # 0.5 K/uL (1.0-4.3); LYMPH % 12.6 % (20.0-40.0); MEAN CELL VOLUME 91.8 fl (80.0-94.0); MEAN CORPUSCULAR HEMOGLOBIN 29.7 pg (27.0-31.0); MEAN CORPUSCULAR HGB CONC 32.3 g/dL (33.0-37.0); MONO # 0.2 K/uL (0.0-0.8); MONO % 5.6 % (0.0-10.0); NEUT # 3.2 K/uL (1.8-7.0); NEUT % 77.7 % (50.0-75.0); RED CELL DISTRIBUTION WIDTH 15.1 % (11.5-14.5); WHITE BLOOD COUNT 4.1 K/uL (4.8-10.8)
[2016-11-20] MEDS: Metoprolol Succinate 50 mg XL Tab PO SCH (09:06)
[2016-11-20] MEDS: Cholestyramine 4 gm/Pkt UD PO SCH (09:06)
[2016-11-20] MEDS: Potassium Chloride 20 mEq/15 ml LIQ UD PO SCH (09:07)
[2016-11-20] MEDS: Nitroglycerin 0.2 mg/hr Top Patch TD SCH (09:08)
[2016-11-20] MEDS: Lactobacillus Acidophilus 500 MU Cap PO SCH ×2 (09:09→17:15)
[2016-11-20 09:10] LABS: ALB/GLOB RATIO 0.8 (1.0-2.1); ALKALINE PHOSPHATASE 62 U/L (38-126); ALT/SGPT 17 U/L (21-72); AST/SGOT 33 U/L (17-59); BILIRUBIN,TOTAL 0.2 mg/dl (0.2-1.3); BLOOD UREA NITROGEN 9 mg/dl (9-20); CALCIUM 7.6 mg/dL (8.4-10.2); CARBON DIOXIDE 21 mmol/L (22-30); CHLORIDE 110 mmol/L (98-107); GFR AFRICAN-AMERICAN > 60; GLUCOSE,RANDOM 89 mg/dL (75-110); POTASSIUM 3.8 MMOL/L (3.6-5.0); SODIUM 139 mmol/l (132-148); TOTAL PROTEIN 4.9 G/DL (6.3-8.2)
[2016-11-20] MEDS ORDERED: Potassium Ch 20mEq in D5-1/2NS 1,000 ML IV SCH (10:15)
--- NOTE | 2016-11-20 10:34 | VASCULAR ---
PROCEDURE: Date of procedure: 11/19/2016 Procedure: 1. Placement of a right arm PICC with ultrasound and fluoroscopic guidance, CPT 19280 2. PICC tip confirmation with spot radiograph and is in the superior vena cava Medications: 1 percent lidocaine Total Fluoro time: 47.9 seconds Radiation: 2.85 mGy EBL: 2 cc HISTORY: Infection requiring long-term IV antibiotics TECHNIQUE: Following informed consent and procedure time-out, the patient was placed supine on the interventional table and the right arm prepped and draped in the usual sterile fashion. Ultrasound showed a patent and compressible right basilic vein. After the skin was anesthetized with lidocaine, the basilic vein was accessed with micro micropuncture technique using ultrasound guidance. A guidewire was then advanced under fluoroscopic guidance into the superior vena cava. An image documenting ultrasound guidance for vascular access was permanently saved. The length of the single-lumen 4 [place] PICC was trimmed to 37 centimeters and advanced through a peel-away sheath. The PICC was position with tip of PICC confirm a spot radiograph the superior vena cava. The PICC was secured to the patient's skin. The PICC was flushed. A biopatch and sterile dressing was applied. IMPRESSION: Placement of a single-lumen 4 [place] PICC trimmed to 37 centimeters via right basilic vein. The tip of the PICC is confirmed with spot radiograph and is in the superior vena cava.
--- NOTE | 2016-11-20 11:17 | CT ---
PROCEDURE: CT Chest without contrast HISTORY: pneumonia COMPARISON: 11/14/2016 TECHNIQUE: Contiguous axial images were obtained through the chest without intravenous contrast enhancement. Sagittal and coronal reconstructions were performed. Radiation dose (DLP): 385 mGy-cm. This CT exam was performed using one or more of the following dose reduction techniques: Automated exposure control, adjustment of the mA and/or kV according to patient size, and/or use of iterative reconstruction technique. FINDINGS: LUNGS: Emphysematous changes are seen in the upper lobes. MEDIASTINUM: Unremarkable thoracic aorta. No aneurysm. Normal sized heart. Main pulmonary artery unremarkable. No vascular congestion. No lymphadenopathy. PLEURA: There is a moderate size left pleural effusion with an adjacent infiltrate. This most likely represents compressive atelectasis. Pneumonia cannot be excluded. Findings are unchanged BONES: No fracture. No destructive lesion. UPPER ABDOMEN: Grossly unremarkable. OTHER FINDINGS: None. IMPRESSION: There is a moderate size left pleural effusion with an adjacent infiltrate. This most likely represents compressive atelectasis. Pneumonia cannot be excluded.
[2016-11-20] MEDS: Vancomycin 500 mg (Oral/Rectal USE) PO SCH ×3 (12:48→23:16)
--- NOTE | 2016-11-20 17:11 | CP.PCM.PN ---
Subjective - Date & Time of Evaluation Date of Evaluation: 11/20/16 Time of Evaluation: 08:00 - Subjective Subjective: CT chest shows no mass- + effusion/ atelectasis ? infiltrate diarrhea is improving urine c/s repeat thus far negative cultures from pleural fluid neg thus far Has Hep C / ? cirrhosis with Ischemic cardiomyopathy and CHF consider supportive rx Objective - Vital Signs/Intake and Output Vital Signs (last 24 hours): Temp Pulse Resp BP Pulse Ox 97 F L 83 20 114/63 96 11/20/16 17:07 11/20/16 17:07 11/20/16 17:07 11/20/16 17:07 11/20/16 17:07 - Medications Medications: Current Medications Acetaminophen (Tylenol 650 Mg Supp) 650 mg [place] ONCE PRN PRN Reason: Pain, moderate (4-7) Albuterol (Ventolin Hfa 90 Mcg/Actuation (8 G)) 2 puff IH Q4H PRN PRN Reason: Shortness of Breath Last Admin: 11/20/16 14:42 Dose: 2 puff Albuterol/Ipratropium (Duoneb 3 Mg/0.5 Mg (3 Ml) Ud) 3 ml IH RQ6 PRN PRN Reason: Shortness of Breath Aspirin (Ecotrin) 81 mg PO DAILY [facility] Last Admin: 11/20/16 09:07 Dose: 81 mg Atorvastatin Calcium (Lipitor) 20 mg PO HS [facility] Last Admin: 11/19/16 22:56 Dose: 20 mg Cholestyramine Resin (Questran) 4 gm PO DAILY [facility] Last Admin: 11/20/16 09:06 Dose: 4 gm Duloxetine HCl (Cymbalta) 30 mg PO DAILY [facility] Last Admin: 11/20/16 09:07 Dose: 30 mg Famotidine (Pepcid) 20 mg PO BID [facility] Folic Acid (Folic Acid) 1 mg PO DAILY [facility] Last Admin: 11/20/16 09:07 Dose: 1 mg Heparin Sodium (Porcine) (Heparin) 5,000 units SC Q8 [facility] PRN Reason: Protocol Last Admin: 11/20/16 09:05 Dose: 5,000 units Home Med (Memantine Hcl [Namenda Xr]) 28 mg PO DAILY [facility] Last Admin: 11/20/16 09:06 Dose: 28 mg Vancomycin HCl 750 mg/ Sodium (Chloride) 250 mls @ 250 mls/hr IVPB Q12H [facility] Last Admin: 11/20/16 12:47 Dose: 250 mls/hr Aztreonam 1 gm/ Sodium (Chloride) 100 mls @ 100 mls/hr IVPB Q8 [facility] Last Admin: 11/20/16 09:05 Dose: 100 mls/hr Lactobacillus Acidophilus (Bacid Acidophilus) 1 cap PO BID [facility] Last Admin: 11/20/16 09:09 Dose: 1 cap Metoprolol Succinate (Toprol Xl) 50 mg PO DAILY [facility] Last Admin: 11/20/16 09:06 Dose: 50 mg Nitroglycerin (Nitro-Dur 0.2 Mg/Hr Patch) 1 patch TD DAILY [facility] Last Admin: 11/20/16 09:08 Dose: 1 patch Potassium Chloride (Potassium Chloride Oral Soln) 40 meq PO DAILY [facility] Last Admin: 11/20/16 09:07 Dose: 40 meq Tamsulosin HCl (Flomax) 0.4 mg PO HS [facility] Last Admin: 11/19/16 22:55 Dose: 0.4 mg Vancomycin HCl (Vancocin (Oral/Rectal Use)) 250 mg PO Q6H [facility] Last Admin: 11/20/16 12:48 Dose: 250 mg - Labs Labs: 11/20/16 07:50 11/20/16 07:50 PT 13.6 SECONDS (9.6-11.2) H 11/18/16 17:30 INR 1.31 (0.92-1.08) H 11/18/16 17:30 APTT 33.9 SECONDS (23.3-32.5) H 11/14/16 09:56 Assessment and Plan (1) Pleural effusion on left Status: Acute (2) Pulmonary infiltrate present on computed tomography Status: Acute (3) Clostridium difficile colitis Status: Acute (4) Colitis Status: Acute (5) Dehydration Status: Acute (6) MRSA (methicillin resistant Staphylococcus aureus) infection Status: Acute
[2016-11-21] MEDS: Aztreonam 1 GM in Sodium Chloride 0.9% 100 ML IVPB SCH ×2 (01:15→08:37)
[2016-11-21] MEDS: Vancomycin 500 mg (Oral/Rectal USE) PO SCH ×4 (05:54→22:52)
[2016-11-21] MEDS: Nitroglycerin 0.2 mg/hr Top Patch TD SCH (08:39)
[2016-11-21] MEDS: Metoprolol Succinate 50 mg XL Tab PO SCH (08:40)
[2016-11-21] MEDS: Potassium Chloride 20 mEq/15 ml LIQ UD PO SCH (08:40)
[2016-11-21] MEDS: Cholestyramine 4 gm/Pkt UD PO SCH (08:40)
[2016-11-21] MEDS: Lactobacillus Acidophilus 500 MU Cap PO SCH ×2 (08:50→16:21)
[2016-11-21 11:33] LABS: BLOOD UREA NITROGEN 4 mg/dl (9-20); CALCIUM 7.7 mg/dL (8.4-10.2); CARBON DIOXIDE 26 mmol/L (22-30); CHLORIDE 106 mmol/L (98-107); GFR AFRICAN-AMERICAN > 60; GLUCOSE,RANDOM 125 mg/dL (75-110); MAGNESIUM 1.8 MG/DL (1.6-2.3); POTASSIUM 4.5 MMOL/L (3.6-5.0); SODIUM 139 mmol/l (132-148)
--- NOTE | 2016-11-21 12:35 | CP.PCM.PN ---
Subjective - Date & Time of Evaluation Date of Evaluation: 11/21/16 Time of Evaluation: 12:34 - Subjective Subjective: Patient is doing well. Has no chest pain or SOB Noted reaccumulation of pleural effusion. Objective - Vital Signs/Intake and Output Vital Signs (last 24 hours): Temp Pulse Resp BP Pulse Ox 97.6 F 67 20 122/64 98 11/21/16 07:37 11/21/16 08:40 11/21/16 07:37 11/21/16 08:40 11/21/16 07:37 Intake and Output: 11/21/16 11/21/16 06:59 18:59 Intake Total 350 Output Total 3000 Balance -2650 - Medications Medications: Current Medications Acetaminophen (Tylenol 650 Mg Supp) 650 mg [place] ONCE PRN PRN Reason: Pain, moderate (4-7) Albuterol (Ventolin Hfa 90 Mcg/Actuation (8 G)) 2 puff IH Q4H PRN PRN Reason: Shortness of Breath Last Admin: 11/20/16 14:42 Dose: 2 puff Albuterol/Ipratropium (Duoneb 3 Mg/0.5 Mg (3 Ml) Ud) 3 ml IH RQ6 PRN PRN Reason: Shortness of Breath Aspirin (Ecotrin) 81 mg PO DAILY [facility] Last Admin: 11/21/16 08:39 Dose: 81 mg Atorvastatin Calcium (Lipitor) 20 mg PO HS [facility] Last Admin: 11/20/16 21:28 Dose: 20 mg Cholestyramine Resin (Questran) 4 gm PO DAILY [facility] Last Admin: 11/21/16 08:40 Dose: 4 gm Duloxetine HCl (Cymbalta) 30 mg PO DAILY [facility] Last Admin: 11/21/16 08:39 Dose: 30 mg Famotidine (Pepcid) 20 mg PO BID [facility] Last Admin: 11/21/16 09:48 Dose: 20 mg Folic Acid (Folic Acid) 1 mg PO DAILY [facility] Last Admin: 11/21/16 08:41 Dose: 1 mg Heparin Sodium (Porcine) (Heparin) 5,000 units SC Q8 [facility] PRN Reason: Protocol Last Admin: 11/21/16 08:40 Dose: 5,000 units Home Med (Memantine Hcl [Namenda Xr]) 28 mg PO DAILY [facility] Last Admin: 11/21/16 08:42 Dose: 28 mg Vancomycin HCl 750 mg/ Sodium (Chloride) 250 mls @ 250 mls/hr IVPB Q12H [facility] Last Admin: 11/21/16 11:54 Dose: 250 mls/hr Aztreonam 1 gm/ Sodium (Chloride) 100 mls @ 100 mls/hr IVPB Q8 [facility] Last Admin: 11/21/16 08:37 Dose: 100 mls/hr Lactobacillus Acidophilus (Bacid Acidophilus) 1 cap PO BID [facility] Last Admin: 11/21/16 08:50 Dose: 1 cap Metoprolol Succinate (Toprol Xl) 50 mg PO DAILY [facility] Last Admin: 11/21/16 08:40 Dose: 50 mg Nitroglycerin (Nitro-Dur 0.2 Mg/Hr Patch) 1 patch TD DAILY [facility] Last Admin: 11/21/16 08:39 Dose: 1 patch Potassium Chloride (Potassium Chloride Oral Soln) 40 meq PO DAILY [facility] Last Admin: 11/21/16 08:40 Dose: 40 meq Tamsulosin HCl (Flomax) 0.4 mg PO HS [facility] Last Admin: 11/20/16 21:28 Dose: 0.4 mg Vancomycin HCl (Vancocin (Oral/Rectal Use)) 250 mg PO Q6H [facility] Last Admin: 11/21/16 11:54 Dose: 250 mg - Labs Labs: 11/20/16 07:50 11/21/16 11:15 PT 13.6 SECONDS (9.6-11.2) H 11/18/16 17:30 INR 1.31 (0.92-1.08) H 11/18/16 17:30 APTT 33.9 SECONDS (23.3-32.5) H 11/14/16 09:56 - Head Exam Head Exam: NORMAL INSPECTION - Eye Exam Eye Exam: Normal appearance - ENT Exam ENT Exam: Mucous Membranes Moist - Respiratory Exam Respiratory Exam: Decreased Breath Sounds, Clear to Ausculation Bilateral - Cardiovascular Exam Cardiovascular Exam: REGULAR RHYTHM - GI/Abdominal Exam GI & Abdominal Exam: Normal Bowel Sounds - Neurological Exam Neurological Exam: CN II-XII Intact, Oriented x3 Assessment and Plan (1) Pleural effusion on left Status: Acute (2) UTI (urinary tract infection) Status: Acute (3) COPD (chronic obstructive pulmonary disease) Status: Chronic (4) Dementia Status: Chronic (5) Clostridium difficile colitis Status: Acute (6) MRSA (methicillin resistant Staphylococcus aureus) infection Status: Acute (7) Liver cyst Status: Acute - Assessment and Plan (Free Text) Plan: Cont meds Cont tx Cont PT follow up with Pulmonary con iv antibiotics recheck stool next week.
--- NOTE | 2016-11-21 12:38 | CP.PCM.PN ---
Subjective - Date & Time of Evaluation Date of Evaluation: 11/21/16 Time of Evaluation: 12:26 - Subjective Subjective: Stools still a little loose. No abdominal pain Objective - Vital Signs/Intake and Output Vital Signs (last 24 hours): Temp Pulse Resp BP Pulse Ox 97.6 F 67 20 122/64 98 11/21/16 07:37 11/21/16 08:40 11/21/16 07:37 11/21/16 08:40 11/21/16 07:37 Intake and Output: 11/21/16 11/21/16 06:59 18:59 Intake Total 350 Output Total 3000 Balance -2650 - Medications Medications: Current Medications Acetaminophen (Tylenol 650 Mg Supp) 650 mg [place] ONCE PRN PRN Reason: Pain, moderate (4-7) Albuterol (Ventolin Hfa 90 Mcg/Actuation (8 G)) 2 puff IH Q4H PRN PRN Reason: Shortness of Breath Last Admin: 11/20/16 14:42 Dose: 2 puff Albuterol/Ipratropium (Duoneb 3 Mg/0.5 Mg (3 Ml) Ud) 3 ml IH RQ6 PRN PRN Reason: Shortness of Breath Aspirin (Ecotrin) 81 mg PO DAILY [facility] Last Admin: 11/21/16 08:39 Dose: 81 mg Atorvastatin Calcium (Lipitor) 20 mg PO HS [facility] Last Admin: 11/20/16 21:28 Dose: 20 mg Cholestyramine Resin (Questran) 4 gm PO DAILY [facility] Last Admin: 11/21/16 08:40 Dose: 4 gm Duloxetine HCl (Cymbalta) 30 mg PO DAILY [facility] Last Admin: 11/21/16 08:39 Dose: 30 mg Famotidine (Pepcid) 20 mg PO BID [facility] Last Admin: 11/21/16 09:48 Dose: 20 mg Folic Acid (Folic Acid) 1 mg PO DAILY [facility] Last Admin: 11/21/16 08:41 Dose: 1 mg Heparin Sodium (Porcine) (Heparin) 5,000 units SC Q8 [facility] PRN Reason: Protocol Last Admin: 11/21/16 08:40 Dose: 5,000 units Home Med (Memantine Hcl [Namenda Xr]) 28 mg PO DAILY [facility] Last Admin: 11/21/16 08:42 Dose: 28 mg Vancomycin HCl 750 mg/ Sodium (Chloride) 250 mls @ 250 mls/hr IVPB Q12H [facility] Last Admin: 11/21/16 11:54 Dose: 250 mls/hr Aztreonam 1 gm/ Sodium (Chloride) 100 mls @ 100 mls/hr IVPB Q8 [facility] Last Admin: 11/21/16 08:37 Dose: 100 mls/hr Lactobacillus Acidophilus (Bacid Acidophilus) 1 cap PO BID [facility] Last Admin: 11/21/16 08:50 Dose: 1 cap Metoprolol Succinate (Toprol Xl) 50 mg PO DAILY [facility] Last Admin: 11/21/16 08:40 Dose: 50 mg Nitroglycerin (Nitro-Dur 0.2 Mg/Hr Patch) 1 patch TD DAILY [facility] Last Admin: 11/21/16 08:39 Dose: 1 patch Potassium Chloride (Potassium Chloride Oral Soln) 40 meq PO DAILY [facility] Last Admin: 11/21/16 08:40 Dose: 40 meq Tamsulosin HCl (Flomax) 0.4 mg PO HS [facility] Last Admin: 11/20/16 21:28 Dose: 0.4 mg Vancomycin HCl (Vancocin (Oral/Rectal Use)) 250 mg PO Q6H [facility] Last Admin: 11/21/16 11:54 Dose: 250 mg - Labs Labs: 11/20/16 07:50 11/21/16 11:15 PT 13.6 SECONDS (9.6-11.2) H 11/18/16 17:30 INR 1.31 (0.92-1.08) H 11/18/16 17:30 APTT 33.9 SECONDS (23.3-32.5) H 11/14/16 09:56 - Head Exam Head Exam: ATRAUMATIC - Eye Exam Eye Exam: Normal appearance - ENT Exam ENT Exam: Mucous Membranes Moist - Neck Exam Neck Exam: Normal Inspection - Respiratory Exam Respiratory Exam: Clear to Ausculation Bilateral - Cardiovascular Exam Cardiovascular Exam: REGULAR RHYTHM, +S1, +S2 - GI/Abdominal Exam GI & Abdominal Exam: Normal Bowel Sounds. absent: Tenderness Assessment and Plan (1) Colitis Assessment & Plan: Patient has had C. diff before and pulsed treatment is advisable. When discharged the following regimen is advised: Discussed with patient's daughter. Week 1 Vanco 125 mg po BID " 2 Vanco 125 mg QD " 3 " 125 mg po every other day " 4&5 " 125 mg po every third day. Then stop Status: Acute
--- NOTE | 2016-11-21 13:29 | CP.PCM.PN ---
Subjective - Date & Time of Evaluation Date of Evaluation: 11/21/16 Time of Evaluation: 09:00 - Subjective Subjective: + LBM d/c azactam add rifaximin poor prognosis Objective - Vital Signs/Intake and Output Vital Signs (last 24 hours): Temp Pulse Resp BP Pulse Ox 97.6 F 67 20 122/64 98 11/21/16 07:37 11/21/16 08:40 11/21/16 07:37 11/21/16 08:40 11/21/16 07:37 Intake and Output: 11/21/16 11/21/16 06:59 18:59 Intake Total 350 Output Total 3000 Balance -2650 - Medications Medications: Current Medications Acetaminophen (Tylenol 650 Mg Supp) 650 mg [place] ONCE PRN PRN Reason: Pain, moderate (4-7) Albuterol (Ventolin Hfa 90 Mcg/Actuation (8 G)) 2 puff IH Q4H PRN PRN Reason: Shortness of Breath Last Admin: 11/20/16 14:42 Dose: 2 puff Albuterol/Ipratropium (Duoneb 3 Mg/0.5 Mg (3 Ml) Ud) 3 ml IH RQ6 PRN PRN Reason: Shortness of Breath Aspirin (Ecotrin) 81 mg PO DAILY [facility] Last Admin: 11/21/16 08:39 Dose: 81 mg Atorvastatin Calcium (Lipitor) 20 mg PO HS [facility] Last Admin: 11/20/16 21:28 Dose: 20 mg Cholestyramine Resin (Questran) 4 gm PO DAILY [facility] Last Admin: 11/21/16 08:40 Dose: 4 gm Duloxetine HCl (Cymbalta) 30 mg PO DAILY [facility] Last Admin: 11/21/16 08:39 Dose: 30 mg Famotidine (Pepcid) 20 mg PO BID [facility] Last Admin: 11/21/16 09:48 Dose: 20 mg Folic Acid (Folic Acid) 1 mg PO DAILY [facility] Last Admin: 11/21/16 08:41 Dose: 1 mg Heparin Sodium (Porcine) (Heparin) 5,000 units SC Q8 [facility] PRN Reason: Protocol Last Admin: 11/21/16 08:40 Dose: 5,000 units Home Med (Memantine Hcl [Namenda Xr]) 28 mg PO DAILY [facility] Last Admin: 11/21/16 08:42 Dose: 28 mg Vancomycin HCl 750 mg/ Sodium (Chloride) 250 mls @ 250 mls/hr IVPB Q12H [facility] Last Admin: 11/21/16 11:54 Dose: 250 mls/hr Lactobacillus Acidophilus (Bacid Acidophilus) 1 cap PO BID [facility] Last Admin: 11/21/16 08:50 Dose: 1 cap Metoprolol Succinate (Toprol Xl) 50 mg PO DAILY [facility] Last Admin: 11/21/16 08:40 Dose: 50 mg Nitroglycerin (Nitro-Dur 0.2 Mg/Hr Patch) 1 patch TD DAILY [facility] Last Admin: 11/21/16 08:39 Dose: 1 patch Potassium Chloride (Potassium Chloride Oral Soln) 40 meq PO DAILY [facility] Last Admin: 11/21/16 08:40 Dose: 40 meq Tamsulosin HCl (Flomax) 0.4 mg PO HS [facility] Last Admin: 11/20/16 21:28 Dose: 0.4 mg Vancomycin HCl (Vancocin (Oral/Rectal Use)) 250 mg PO Q6H [facility] Last Admin: 11/21/16 11:54 Dose: 250 mg - Labs Labs: 11/20/16 07:50 11/21/16 11:15 PT 13.6 SECONDS (9.6-11.2) H 11/18/16 17:30 INR 1.31 (0.92-1.08) H 11/18/16 17:30 APTT 33.9 SECONDS (23.3-32.5) H 11/14/16 09:56 - Constitutional Appears: Cachectic, Chronically Ill - Head Exam Head Exam: NORMOCEPHALIC - Eye Exam Eye Exam: PERRL. absent: Scleral icterus - ENT Exam ENT Exam: Mucous Membranes Dry - Neck Exam Neck Exam: absent: Lymphadenopathy - Respiratory Exam Respiratory Exam: Decreased Breath Sounds, Rhonchi - Cardiovascular Exam Cardiovascular Exam: REGULAR RHYTHM, +S1, +S2 - GI/Abdominal Exam GI & Abdominal Exam: Distended, Soft. absent: Tenderness - Rectal Exam Rectal Exam: Deferred - Exam Exam: NORMAL INSPECTION Assessment and Plan (1) Pleural effusion on left Status: Acute (2) Pulmonary infiltrate present on computed tomography Status: Acute (3) Clostridium difficile colitis Status: Acute (4) Colitis Status: Acute (5) Dehydration Status: Acute (6) MRSA (methicillin resistant Staphylococcus aureus) infection Status: Acute
--- NOTE | 2016-11-21 14:00 | CP.PCM.PN ---
Subjective - Date & Time of Evaluation Date of Evaluation: 11/21/16 Time of Evaluation: 13:58 - Subjective Subjective: Interim events were reviewed as well as the CT scan of the thorax. There appears to be persistent left basilar infiltrate as well as reaccumulation of pleural fluid. Patient denies any current coughing or chest pain and has had symptomatic dyspnea at home prior to this hospitalization as well. The case was discussed with infectious disease as well as the [facility] on the medical floor. There is some question as to the patient's discharge to home over this coming weekend, but if he remains hospitalized a flexible bronchoscopy has been tentatively scheduled for 7:45 AM on Thursday. Objective - Vital Signs/Intake and Output Vital Signs (last 24 hours): Temp Pulse Resp BP Pulse Ox 97.6 F 67 20 122/64 98 11/21/16 07:37 11/21/16 08:40 11/21/16 07:37 11/21/16 08:40 11/21/16 07:37 Intake and Output: 11/21/16 11/21/16 11:59 23:59 Intake Total 350 Output Total 1200 Balance -850 - Medications Medications: Current Medications Acetaminophen (Tylenol 650 Mg Supp) 650 mg [place] ONCE PRN PRN Reason: Pain, moderate (4-7) Albuterol (Ventolin Hfa 90 Mcg/Actuation (8 G)) 2 puff IH Q4H PRN PRN Reason: Shortness of Breath Last Admin: 11/20/16 14:42 Dose: 2 puff Albuterol/Ipratropium (Duoneb 3 Mg/0.5 Mg (3 Ml) Ud) 3 ml IH RQ6 PRN PRN Reason: Shortness of Breath Aspirin (Ecotrin) 81 mg PO DAILY [facility] Last Admin: 11/21/16 08:39 Dose: 81 mg Atorvastatin Calcium (Lipitor) 20 mg PO HS [facility] Last Admin: 11/20/16 21:28 Dose: 20 mg Cholestyramine Resin (Questran) 4 gm PO DAILY [facility] Last Admin: 11/21/16 08:40 Dose: 4 gm Duloxetine HCl (Cymbalta) 30 mg PO DAILY [facility] Last Admin: 11/21/16 08:39 Dose: 30 mg Famotidine (Pepcid) 20 mg PO BID [facility] Last Admin: 11/21/16 09:48 Dose: 20 mg Folic Acid (Folic Acid) 1 mg PO DAILY [facility] Last Admin: 11/21/16 08:41 Dose: 1 mg Heparin Sodium (Porcine) (Heparin) 5,000 units SC Q8 [facility] PRN Reason: Protocol Last Admin: 11/21/16 08:40 Dose: 5,000 units Home Med (Memantine Hcl [Namenda Xr]) 28 mg PO DAILY [facility] Last Admin: 11/21/16 08:42 Dose: 28 mg Vancomycin HCl 750 mg/ Sodium (Chloride) 250 mls @ 250 mls/hr IVPB Q12H [facility] Last Admin: 11/21/16 11:54 Dose: 250 mls/hr Lactobacillus Acidophilus (Bacid Acidophilus) 1 cap PO BID [facility] Last Admin: 11/21/16 08:50 Dose: 1 cap Magnesium Oxide (Mag-Ox) 400 mg PO DAILY [facility] Metoprolol Succinate (Toprol Xl) 50 mg PO DAILY [facility] Last Admin: 11/21/16 08:40 Dose: 50 mg Nitroglycerin (Nitro-Dur 0.2 Mg/Hr Patch) 1 patch TD DAILY [facility] Last Admin: 11/21/16 08:39 Dose: 1 patch Potassium Chloride (Potassium Chloride Oral Soln) 40 meq PO DAILY [facility] Last Admin: 11/21/16 08:40 Dose: 40 meq Rifaximin (Xifaxan) 550 mg PO BID [facility] Tamsulosin HCl (Flomax) 0.4 mg PO HS [facility] Last Admin: 11/20/16 21:28 Dose: 0.4 mg Vancomycin HCl (Vancocin (Oral/Rectal Use)) 250 mg PO Q6H [facility] Last Admin: 11/21/16 11:54 Dose: 250 mg - Labs Labs: 11/20/16 07:50 11/21/16 11:15 PT 13.6 SECONDS (9.6-11.2) H 11/18/16 17:30 INR 1.31 (0.92-1.08) H 11/18/16 17:30 APTT 33.9 SECONDS (23.3-32.5) H 11/14/16 09:56 Assessment and Plan (1) Pleural effusion on left Status: Acute (2) Pulmonary infiltrate present on computed tomography Status: Acute
[2016-11-21] MEDS: Magnesium Oxide 400 mg Tab UD PO SCH (16:18)
[2016-11-22] MEDS: Vancomycin 500 mg (Oral/Rectal USE) PO SCH ×4 (05:00→22:31)
[2016-11-22 07:37] LABS: HEMATOCRIT 33.6 % (35.0-51.0); MEAN CELL VOLUME 91.2 fl (80.0-94.0); MEAN CORPUSCULAR HEMOGLOBIN 29.4 pg (27.0-31.0); MEAN CORPUSCULAR HGB CONC 32.2 g/dL (33.0-37.0); WHITE BLOOD COUNT 3.3 K/uL (4.8-10.8)
[2016-11-22 07:59] LABS: BLOOD UREA NITROGEN 5 mg/dl (9-20); CALCIUM 7.9 mg/dL (8.4-10.2); CARBON DIOXIDE 29 mmol/L (22-30); CHLORIDE 104 mmol/L (98-107); GFR AFRICAN-AMERICAN > 60; GLUCOSE,RANDOM 78 mg/dL (75-110); MAGNESIUM 1.9 MG/DL (1.6-2.3); POTASSIUM 4.1 MMOL/L (3.6-5.0); SODIUM 140 mmol/l (132-148)
[2016-11-22] MEDS: Lactobacillus Acidophilus 500 MU Cap PO SCH ×2 (08:43→17:33)
[2016-11-22] MEDS: Magnesium Oxide 400 mg Tab UD PO SCH (08:45)
[2016-11-22] MEDS: Nitroglycerin 0.2 mg/hr Top Patch TD SCH (08:47)
[2016-11-22] MEDS: Cholestyramine 4 gm/Pkt UD PO SCH (08:50)
[2016-11-22] MEDS: Metoprolol Succinate 50 mg XL Tab PO SCH (08:50)
--- NOTE | 2016-11-22 08:53 | CP.PCM.PN ---
Subjective - Date & Time of Evaluation Date of Evaluation: 11/22/16 Time of Evaluation: 08:53 - Subjective Subjective: Patient continues to do well No SOB Noted re accumulation of left pleural effusion. No diarrhea. No fever. No abdominal pain No cough. Objective - Vital Signs/Intake and Output Vital Signs (last 24 hours): Temp Pulse Resp BP Pulse Ox 98.3 F 71 18 134/69 100 11/22/16 07:41 11/22/16 08:50 11/22/16 07:41 11/22/16 08:50 11/22/16 07:41 Intake and Output: 11/22/16 11/22/16 06:59 18:59 Intake Total 515 Output Total 1400 Balance -885 - Medications Medications: Current Medications Acetaminophen (Tylenol 650 Mg Supp) 650 mg [place] ONCE PRN PRN Reason: Pain, moderate (4-7) Albuterol (Ventolin Hfa 90 Mcg/Actuation (8 G)) 2 puff IH Q4H PRN PRN Reason: Shortness of Breath Last Admin: 11/20/16 14:42 Dose: 2 puff Albuterol/Ipratropium (Duoneb 3 Mg/0.5 Mg (3 Ml) Ud) 3 ml IH RQ6 PRN PRN Reason: Shortness of Breath Aspirin (Ecotrin) [address] [facility] Last Admin: 11/21/16 08:39 Dose: 81 mg Atorvastatin Calcium (Lipitor) [address] [facility] Last Admin: 11/21/16 21:49 Dose: 20 mg Cholestyramine Resin (Questran) [address] [facility] Last Admin: 11/22/16 08:50 Dose: 4 gm Duloxetine HCl (Cymbalta) [address] [facility] Last Admin: 11/22/16 08:44 Dose: 30 mg Famotidine (Pepcid) [address] [facility] Last Admin: 11/22/16 08:49 Dose: 20 mg Folic Acid (Folic Acid) [address] [facility] Last Admin: 11/22/16 08:44 Dose: 1 mg Heparin Sodium (Porcine) (Heparin) 5,000 units SC Q8 [facility] PRN Reason: Protocol Stop: 11/23/16 23:59 Last Admin: 11/22/16 01:05 Dose: 5,000 units Home Med (Memantine Hcl [Namenda Xr]) [address] [facility] Last Admin: 11/22/16 08:46 Dose: 28 mg Vancomycin HCl 750 mg/ Sodium (Chloride) 250 mls @ 250 mls/hr IVPB Q12H [facility] Last Admin: 11/21/16 22:49 Dose: 250 mls/hr Lactobacillus Acidophilus (Bacid Acidophilus) [address] [facility] Last Admin: 11/22/16 08:43 Dose: 1 cap Magnesium Oxide (Mag-Ox) [address] [facility] Last Admin: 11/22/16 08:45 Dose: 400 mg Metoprolol Succinate (Toprol Xl) [address] [facility] Last Admin: 11/22/16 08:50 Dose: 50 mg Nitroglycerin (Nitro-Dur 0.2 Mg/Hr Patch) [address] [facility] Last Admin: 11/22/16 08:47 Dose: 1 patch Potassium Chloride (Potassium Chloride Oral Soln) [address] [facility] Last Admin: 11/21/16 08:40 Dose: 40 meq Rifaximin (Xifaxan) [address] [facility] Last Admin: 11/22/16 08:51 Dose: 550 mg Tamsulosin HCl (Flomax) 0.[address] [facility] Last Admin: 11/21/16 21:48 Dose: 0.4 mg Vancomycin HCl (Vancocin (Oral/Rectal Use)) [address] [facility] Last Admin: 11/22/16 05:00 Dose: 250 mg - Labs Labs: 11/22/16 05:30 11/22/16 05:30 PT 13.6 SECONDS (9.6-11.2) H 11/18/16 17:30 INR 1.31 (0.92-1.08) H 11/18/16 17:30 APTT 33.9 SECONDS (23.3-32.5) H 11/14/16 09:56 - Head Exam Head Exam: NORMAL INSPECTION - Eye Exam Eye Exam: Normal appearance - ENT Exam ENT Exam: Mucous Membranes Moist - Respiratory Exam Respiratory Exam: Decreased Breath Sounds Additional comments: decreased breath sounds left lung - Cardiovascular Exam Cardiovascular Exam: REGULAR RHYTHM - GI/Abdominal Exam GI & Abdominal Exam: Normal Bowel Sounds - Neurological Exam Neurological Exam: CN II-XII Intact, Oriented x3 - Psychiatric Exam Psychiatric exam: Normal Mood Assessment and Plan (1) Pleural effusion on left Status: Acute (2) UTI (urinary tract infection) Status: Acute (3) COPD (chronic obstructive pulmonary disease) Status: Chronic (4) Dementia Status: Chronic (5) Clostridium difficile colitis Status: Acute (6) MRSA (methicillin resistant Staphylococcus aureus) infection Status: Acute (7) Liver cyst Status: Acute - Assessment and Plan (Free Text) Plan: Contmeds Cont po tx for c diff recheck stool exam cont tx
--- NOTE | 2016-11-22 09:29 | CP.PCM.PN ---
Subjective - Date & Time of Evaluation Date of Evaluation: 11/22/16 Time of Evaluation: 09:26 - Subjective Subjective: UROLOGY pt condition is improving While still in hosp and with medical clearence I nwould suggest to proceed with [employer] [facility] of Prostate Objective - Vital Signs/Intake and Output Vital Signs (last 24 hours): Temp Pulse Resp BP Pulse Ox 98.3 F 71 18 134/69 100 11/22/16 07:41 11/22/16 08:50 11/22/16 07:41 11/22/16 08:50 11/22/16 07:41 Intake and Output: 11/22/16 11/22/16 06:59 18:59 Intake Total 515 Output Total 1400 Balance -885 - Medications Medications: Current Medications Acetaminophen (Tylenol 650 Mg Supp) 650 mg [place] ONCE PRN PRN Reason: Pain, moderate (4-7) Albuterol (Ventolin Hfa 90 Mcg/Actuation (8 G)) 2 puff IH Q4H PRN PRN Reason: Shortness of Breath Last Admin: 11/20/16 14:42 Dose: 2 puff Albuterol/Ipratropium (Duoneb 3 Mg/0.5 Mg (3 Ml) Ud) 3 ml IH RQ6 PRN PRN Reason: Shortness of Breath Aspirin (Ecotrin) 81 mg PO DAILY [facility] Last Admin: 11/21/16 08:39 Dose: 81 mg Atorvastatin Calcium (Lipitor) 20 mg PO HS [facility] Last Admin: 11/21/16 21:49 Dose: 20 mg Cholestyramine Resin (Questran) 4 gm PO DAILY [facility] Last Admin: 11/22/16 08:50 Dose: 4 gm Duloxetine HCl (Cymbalta) 30 mg PO DAILY [facility] Last Admin: 11/22/16 08:44 Dose: 30 mg Famotidine (Pepcid) 20 mg PO BID [facility] Last Admin: 11/22/16 08:49 Dose: 20 mg Folic Acid (Folic Acid) 1 mg PO DAILY [facility] Last Admin: 11/22/16 08:44 Dose: 1 mg Heparin Sodium (Porcine) (Heparin) 5,000 units SC Q8 MICHELLE PRN Reason: Protocol Stop: 11/23/16 23:59 Last Admin: 11/22/16 09:18 Dose: 5,000 units Home Med (Memantine Hcl [Namenda Xr]) 28 mg PO DAILY [facility] Last Admin: 11/22/16 08:46 Dose: 28 mg Vancomycin HCl 750 mg/ Sodium (Chloride) 250 mls @ 250 mls/hr IVPB Q12H [facility] Last Admin: 11/21/16 22:49 Dose: 250 mls/hr Lactobacillus Acidophilus (Bacid Acidophilus) 1 cap PO BID [facility] Last Admin: 11/22/16 08:43 Dose: 1 cap Magnesium Oxide (Mag-Ox) 400 mg PO DAILY [facility] Last Admin: 11/22/16 08:45 Dose: 400 mg Metoprolol Succinate (Toprol Xl) 50 mg PO DAILY [facility] Last Admin: 11/22/16 08:50 Dose: 50 mg Nitroglycerin (Nitro-Dur 0.2 Mg/Hr Patch) 1 patch TD DAILY [facility] Last Admin: 11/22/16 08:47 Dose: 1 patch Potassium Chloride (Potassium Chloride Oral Soln) 40 meq PO DAILY [facility] Last Admin: 11/21/16 08:40 Dose: 40 meq Rifaximin (Xifaxan) 550 mg PO BID [facility] Last Admin: 11/22/16 08:51 Dose: 550 mg Tamsulosin HCl (Flomax) 0.4 mg PO HS [facility] Last Admin: 11/21/16 21:48 Dose: 0.4 mg Vancomycin HCl (Vancocin (Oral/Rectal Use)) 250 mg PO Q6H [facility] Last Admin: 11/22/16 05:00 Dose: 250 mg - Labs Labs: 11/22/16 05:30 11/22/16 05:30 PT 13.6 SECONDS (9.6-11.2) H 11/18/16 17:30 INR 1.31 (0.92-1.08) H 11/18/16 17:30 APTT 33.9 SECONDS (23.3-32.5) H 11/14/16 09:56
[2016-11-22] MEDS: Potassium Chloride 20 mEq/15 ml LIQ UD PO SCH (10:05)
--- NOTE | 2016-11-22 12:21 | CP.PCM.PN ---
Subjective - Date & Time of Evaluation Date of Evaluation: 11/22/16 Time of Evaluation: 08:00 - Subjective Subjective: afebrile diarrhea improving for now off azactam cont rx c diff Objective - Vital Signs/Intake and Output Vital Signs (last 24 hours): Temp Pulse Resp BP Pulse Ox 98.3 F 71 18 134/69 100 11/22/16 07:41 11/22/16 08:50 11/22/16 07:41 11/22/16 08:50 11/22/16 07:41 Intake and Output: 11/22/16 11/22/16 06:59 18:59 Intake Total 515 Output Total 1400 Balance -885 - Medications Medications: Current Medications Acetaminophen (Tylenol 650 Mg Supp) 650 mg [place] ONCE PRN PRN Reason: Pain, moderate (4-7) Albuterol (Ventolin Hfa 90 Mcg/Actuation (8 G)) 2 puff IH Q4H PRN PRN Reason: Shortness of Breath Last Admin: 11/20/16 14:42 Dose: 2 puff Albuterol/Ipratropium (Duoneb 3 Mg/0.5 Mg (3 Ml) Ud) 3 ml IH RQ6 PRN PRN Reason: Shortness of Breath Aspirin (Ecotrin) 81 mg PO DAILY [facility] Last Admin: 11/21/16 08:39 Dose: 81 mg Atorvastatin Calcium (Lipitor) 20 mg PO HS [facility] Last Admin: 11/21/16 21:49 Dose: 20 mg Cholestyramine Resin (Questran) 4 gm PO DAILY [facility] Last Admin: 11/22/16 08:50 Dose: 4 gm Duloxetine HCl (Cymbalta) 30 mg PO DAILY [facility] Last Admin: 11/22/16 08:44 Dose: 30 mg Famotidine (Pepcid) 20 mg PO BID [facility] Last Admin: 11/22/16 08:49 Dose: 20 mg Folic Acid (Folic Acid) 1 mg PO DAILY [facility] Last Admin: 11/22/16 08:44 Dose: 1 mg Heparin Sodium (Porcine) (Heparin) 5,000 units SC Q8 MICHELLE PRN Reason: Protocol Stop: 11/23/16 23:59 Last Admin: 11/22/16 09:18 Dose: 5,000 units Home Med (Memantine Hcl [Namenda Xr]) 28 mg PO DAILY [facility] Last Admin: 11/22/16 08:46 Dose: 28 mg Vancomycin HCl 750 mg/ Sodium (Chloride) 250 mls @ 250 mls/hr IVPB Q12H [facility] Last Admin: 11/22/16 11:17 Dose: 250 mls/hr Lactobacillus Acidophilus (Bacid Acidophilus) 1 cap PO BID [facility] Last Admin: 11/22/16 08:43 Dose: 1 cap Magnesium Oxide (Mag-Ox) 400 mg PO DAILY [facility] Last Admin: 11/22/16 08:45 Dose: 400 mg Metoprolol Succinate (Toprol Xl) 50 mg PO DAILY [facility] Last Admin: 11/22/16 08:50 Dose: 50 mg Nitroglycerin (Nitro-Dur 0.2 Mg/Hr Patch) 1 patch TD DAILY [facility] Last Admin: 11/22/16 08:47 Dose: 1 patch Potassium Chloride (Potassium Chloride Oral Soln) 40 meq PO DAILY [facility] Last Admin: 11/22/16 10:05 Dose: 40 meq Rifaximin (Xifaxan) 550 mg PO BID [facility] Last Admin: 11/22/16 08:51 Dose: 550 mg Tamsulosin HCl (Flomax) 0.4 mg PO HS [facility] Last Admin: 11/21/16 21:48 Dose: 0.4 mg Vancomycin HCl (Vancocin (Oral/Rectal Use)) 250 mg PO Q6H [facility] Last Admin: 11/22/16 11:47 Dose: 250 mg - Labs Labs: 11/22/16 05:30 11/22/16 05:30 PT 13.6 SECONDS (9.6-11.2) H 11/18/16 17:30 INR 1.31 (0.92-1.08) H 11/18/16 17:30 APTT 33.9 SECONDS (23.3-32.5) H 11/14/16 09:56 - Constitutional Appears: Non-toxic, Cachectic, Chronically Ill - Head Exam Head Exam: NORMOCEPHALIC - Eye Exam Eye Exam: absent: Scleral icterus Pupil Exam: NORMAL ACCOMODATION - ENT Exam ENT Exam: Mucous Membranes Dry, Normal External Ear Exam - Neck Exam Neck Exam: absent: Lymphadenopathy - Respiratory Exam Respiratory Exam: Decreased Breath Sounds, Rhonchi - Cardiovascular Exam Cardiovascular Exam: REGULAR RHYTHM, +S1, +S2 - GI/Abdominal Exam GI & Abdominal Exam: Distended, Soft. absent: Tenderness - Rectal Exam Rectal Exam: Deferred - Exam Exam: NORMAL INSPECTION - Extremities Exam Extremities Exam: Pedal Edema. absent: Tenderness - Back Exam Back Exam: absent: CVA tenderness (L), CVA tenderness (R) Assessment and Plan (1) Pleural effusion on left Status: Acute (2) Pulmonary infiltrate present on computed tomography Status: Acute (3) Clostridium difficile colitis Status: Acute (4) Colitis Status: Acute (5) Dehydration Status: Acute (6) MRSA (methicillin resistant Staphylococcus aureus) infection Status: Acute
[2016-11-23] MEDS: Vancomycin 500 mg (Oral/Rectal USE) PO SCH ×4 (05:51→23:00)
[2016-11-23] MEDS: Lactobacillus Acidophilus 500 MU Cap PO SCH ×2 (09:05→16:59)
[2016-11-23] MEDS: Potassium Chloride 20 mEq/15 ml LIQ UD PO SCH (09:06)
[2016-11-23] MEDS: Cholestyramine 4 gm/Pkt UD PO SCH (09:06)
[2016-11-23] MEDS: Magnesium Oxide 400 mg Tab UD PO SCH (09:07)
[2016-11-23] MEDS: Metoprolol Succinate 50 mg XL Tab PO SCH (09:07)
[2016-11-23] MEDS: Nitroglycerin 0.2 mg/hr Top Patch TD SCH (09:08)
--- NOTE | 2016-11-23 11:02 | CP.PCM.PN ---
Subjective - Date & Time of Evaluation Date of Evaluation: 11/17/16 Time of Evaluation: 08:00 - Subjective Subjective: patient is stable For thoracentesis. Has no fever has no chest pain. Objective - Vital Signs/Intake and Output Vital Signs (last 24 hours): Temp Pulse Resp BP Pulse Ox 98.1 F 78 18 142/70 99 11/23/16 07:37 11/23/16 09:08 11/23/16 07:37 11/23/16 09:08 11/23/16 07:37 Intake and Output: 11/23/16 11/23/16 06:59 18:59 Intake Total 480 Output Total 1000 Balance -520 - Medications Medications: Current Medications Acetaminophen (Tylenol 650 Mg Supp) 650 mg [place] ONCE PRN PRN Reason: Pain, moderate (4-7) Albuterol (Ventolin Hfa 90 Mcg/Actuation (8 G)) 2 puff IH Q4H PRN PRN Reason: Shortness of Breath Last Admin: 11/20/16 14:42 Dose: 2 puff Albuterol/Ipratropium (Duoneb 3 Mg/0.5 Mg (3 Ml) Ud) 3 ml IH RQ6 PRN PRN Reason: Shortness of Breath Aspirin (Ecotrin) 81 mg PO DAILY [facility] Last Admin: 11/21/16 08:39 Dose: 81 mg Atorvastatin Calcium (Lipitor) 20 mg PO HS [facility] Last Admin: 11/22/16 22:16 Dose: 20 mg Cholestyramine Resin (Questran) 4 gm PO DAILY [facility] Last Admin: 11/23/16 09:06 Dose: 4 gm Duloxetine HCl (Cymbalta) 30 mg PO DAILY [facility] Last Admin: 11/23/16 09:07 Dose: 30 mg Famotidine (Pepcid) 20 mg PO BID [facility] Last Admin: 11/23/16 09:06 Dose: 20 mg Folic Acid (Folic Acid) 1 mg PO DAILY [facility] Last Admin: 11/23/16 09:06 Dose: 1 mg Heparin Sodium (Porcine) (Heparin) 5,000 units SC Q8 MICHELLE PRN Reason: Protocol Stop: 11/23/16 23:59 Last Admin: 11/23/16 09:07 Dose: 5,000 units Home Med (Memantine Hcl [Namenda Xr]) 28 mg PO DAILY [facility] Last Admin: 11/23/16 09:08 Dose: 28 mg Vancomycin HCl 750 mg/ Sodium (Chloride) 250 mls @ 250 mls/hr IVPB Q12H [facility] Last Admin: 11/23/16 10:37 Dose: 250 mls/hr Lactobacillus Acidophilus (Bacid Acidophilus) 1 cap PO BID [facility] Last Admin: 11/23/16 09:05 Dose: 1 cap Magnesium Oxide (Mag-Ox) 400 mg PO DAILY [facility] Last Admin: 11/23/16 09:07 Dose: 400 mg Metoprolol Succinate (Toprol Xl) 50 mg PO DAILY [facility] Last Admin: 11/23/16 09:07 Dose: 50 mg Nitroglycerin (Nitro-Dur 0.2 Mg/Hr Patch) 1 patch TD DAILY [facility] Last Admin: 11/23/16 09:08 Dose: 1 patch Potassium Chloride (Potassium Chloride Oral Soln) 40 meq PO DAILY [facility] Last Admin: 11/23/16 09:06 Dose: 40 meq Rifaximin (Xifaxan) 550 mg PO BID [facility] Last Admin: 11/23/16 09:05 Dose: 550 mg Tamsulosin HCl (Flomax) 0.4 mg PO HS [facility] Last Admin: 11/22/16 22:16 Dose: 0.4 mg Vancomycin HCl (Vancocin (Oral/Rectal Use)) 250 mg PO Q6H [facility] Last Admin: 11/23/16 10:38 Dose: 250 mg - Labs Labs: 11/22/16 05:30 11/22/16 05:30 PT 13.6 SECONDS (9.6-11.2) H 11/18/16 17:30 INR 1.31 (0.92-1.08) H 11/18/16 17:30 APTT 33.9 SECONDS (23.3-32.5) H 11/14/16 09:56 - Head Exam Head Exam: NORMAL INSPECTION - Eye Exam Eye Exam: Normal appearance - ENT Exam ENT Exam: Mucous Membranes Moist - Respiratory Exam Respiratory Exam: Decreased Breath Sounds - Cardiovascular Exam Cardiovascular Exam: REGULAR RHYTHM - GI/Abdominal Exam GI & Abdominal Exam: Normal Bowel Sounds - Neurological Exam Neurological Exam: CN II-XII Intact, Oriented x3 - Psychiatric Exam Psychiatric exam: Normal Mood Assessment and Plan (1) Pleural effusion on left Status: Acute (2) UTI (urinary tract infection) Status: Acute (3) COPD (chronic obstructive pulmonary disease) Status: Chronic (4) Dementia Status: Chronic (5) Clostridium difficile colitis Status: Acute (6) MRSA (methicillin resistant Staphylococcus aureus) infection Status: Acute (7) Liver cyst Status: Acute - Assessment and Plan (Free Text) Plan: cont med NPO for thoracentesis folow up labs
--- NOTE | 2016-11-23 11:16 | CP.PCM.PN ---
Subjective - Date & Time of Evaluation Date of Evaluation: 11/23/16 Time of Evaluation: 11:14 - Subjective Subjective: Patient is doing well. Has no chest pain or SOB Afebrile. WBC 3.3 yesterday Lytes normal. Objective - Vital Signs/Intake and Output Vital Signs (last 24 hours): Temp Pulse Resp BP Pulse Ox 98.1 F 78 18 142/70 99 11/23/16 07:37 11/23/16 09:08 11/23/16 07:37 11/23/16 09:08 11/23/16 07:37 Intake and Output: 11/23/16 11/23/16 06:59 18:59 Intake Total 480 Output Total 1000 Balance -520 - Medications Medications: Current Medications Acetaminophen (Tylenol 650 Mg Supp) 650 mg [place] ONCE PRN PRN Reason: Pain, moderate (4-7) Albuterol (Ventolin Hfa 90 Mcg/Actuation (8 G)) 2 puff IH Q4H PRN PRN Reason: Shortness of Breath Last Admin: 11/20/16 14:42 Dose: 2 puff Albuterol/Ipratropium (Duoneb 3 Mg/0.5 Mg (3 Ml) Ud) 3 ml IH RQ6 PRN PRN Reason: Shortness of Breath Aspirin (Ecotrin) 81 mg PO DAILY [facility] Last Admin: 11/21/16 08:39 Dose: 81 mg Atorvastatin Calcium (Lipitor) 20 mg PO HS [facility] Last Admin: 11/22/16 22:16 Dose: 20 mg Cholestyramine Resin (Questran) 4 gm PO DAILY [facility] Last Admin: 11/23/16 09:06 Dose: 4 gm Duloxetine HCl (Cymbalta) 30 mg PO DAILY [facility] Last Admin: 11/23/16 09:07 Dose: 30 mg Famotidine (Pepcid) 20 mg PO BID [facility] Last Admin: 11/23/16 09:06 Dose: 20 mg Folic Acid (Folic Acid) 1 mg PO DAILY [facility] Last Admin: 11/23/16 09:06 Dose: 1 mg Heparin Sodium (Porcine) (Heparin) 5,000 units SC Q8 MICHELLE PRN Reason: Protocol Stop: 11/23/16 23:59 Last Admin: 11/23/16 09:07 Dose: 5,000 units Home Med (Memantine Hcl [Namenda Xr]) 28 mg PO DAILY [facility] Last Admin: 11/23/16 09:08 Dose: 28 mg Vancomycin HCl 750 mg/ Sodium (Chloride) 250 mls @ 250 mls/hr IVPB Q12H [facility] Last Admin: 11/23/16 10:37 Dose: 250 mls/hr Lactobacillus Acidophilus (Bacid Acidophilus) 1 cap PO BID [facility] Last Admin: 11/23/16 09:05 Dose: 1 cap Magnesium Oxide (Mag-Ox) 400 mg PO DAILY [facility] Last Admin: 11/23/16 09:07 Dose: 400 mg Metoprolol Succinate (Toprol Xl) 50 mg PO DAILY [facility] Last Admin: 11/23/16 09:07 Dose: 50 mg Nitroglycerin (Nitro-Dur 0.2 Mg/Hr Patch) 1 patch TD DAILY [facility] Last Admin: 11/23/16 09:08 Dose: 1 patch Potassium Chloride (Potassium Chloride Oral Soln) 40 meq PO DAILY [facility] Last Admin: 11/23/16 09:06 Dose: 40 meq Rifaximin (Xifaxan) 550 mg PO BID [facility] Last Admin: 11/23/16 09:05 Dose: 550 mg Tamsulosin HCl (Flomax) 0.4 mg PO HS [facility] Last Admin: 11/22/16 22:16 Dose: 0.4 mg Vancomycin HCl (Vancocin (Oral/Rectal Use)) 250 mg PO Q6H [facility] Last Admin: 11/23/16 10:38 Dose: 250 mg - Labs Labs: 11/22/16 05:30 11/22/16 05:30 PT 13.6 SECONDS (9.6-11.2) H 11/18/16 17:30 INR 1.31 (0.92-1.08) H 11/18/16 17:30 APTT 33.9 SECONDS (23.3-32.5) H 11/14/16 09:56 - Head Exam Head Exam: NORMAL INSPECTION - Eye Exam Eye Exam: Normal appearance - ENT Exam ENT Exam: Mucous Membranes Moist - Respiratory Exam Respiratory Exam: Clear to Ausculation Bilateral - Cardiovascular Exam Cardiovascular Exam: Irregular Rhythm - GI/Abdominal Exam GI & Abdominal Exam: Normal Bowel Sounds - Neurological Exam Neurological Exam: Awake, CN II-XII Intact Assessment and Plan (1) Pleural effusion on left Status: Acute (2) UTI (urinary tract infection) Status: Acute (3) COPD (chronic obstructive pulmonary disease) Status: Chronic (4) Dementia Status: Chronic (5) Clostridium difficile colitis Status: Acute (6) MRSA (methicillin resistant Staphylococcus aureus) infection Status: Acute (7) Liver cyst Status: Acute (8) Atrial fibrillation Status: Acute - Assessment and Plan (Free Text) Plan: contmeds Cont tx Cont po vanco repeat stool for c diff tomorrow.
[2016-11-23 17:10] VITALS: RESP 20
[2016-11-24] MEDS: Vancomycin 500 mg (Oral/Rectal USE) PO SCH ×3 (05:44→23:21)
[2016-11-24] MEDS ORDERED: Sodium Chloride 0.9% 20 ML IV ONE (07:16)
[2016-11-24] MEDS ORDERED: EPINEPHrine 1 mg/ml (1:1000) Inj ONE (07:16)
[2016-11-24] MEDS ORDERED: Lidocaine 1% Inj (20ml) ONE (07:16)
[2016-11-24] MEDS: Metoprolol Succinate 50 mg XL Tab PO SCH ×2 (07:51→10:42)
[2016-11-24] MEDS ORDERED: Midazolam 2 MG/2 ML VIAL ONE (07:59)
[2016-11-24] MEDS ORDERED: Propofol 10 mg/ml Inj (20 ML) ONE (08:00)
[2016-11-24] MEDS ORDERED: Lactated Ringer's 500 ML IV ONE (08:05)
[2016-11-24] MEDS ORDERED: Sodium Chloride 0.9% 30 ML IV ONE (08:25)
[2016-11-24] MEDS: Lactobacillus Acidophilus 500 MU Cap PO SCH ×3 (08:56→17:53)
[2016-11-24] MEDS: Magnesium Oxide 400 mg Tab UD PO SCH ×2 (08:57→11:00)
[2016-11-24] MEDS: Nitroglycerin 0.2 mg/hr Top Patch TD SCH ×2 (08:57→11:01)
[2016-11-24] MEDS: Potassium Chloride 20 mEq/15 ml LIQ UD PO SCH ×2 (08:58→10:58)
[2016-11-24] MEDS: Cholestyramine 4 gm/Pkt UD PO SCH ×2 (08:58→11:00)
--- NOTE | 2016-11-24 10:50 | RAD ---
HISTORY: post bronchoscopy COMPARISON: Chest x-ray performed 11/19/16, CT chest without contrast performed 11/20/16 TECHNIQUE: Chest, one view. FINDINGS: Right-sided PICC extends expected location of the cavoatrial junction. LUNGS: Moderate-sized left and small right pleural effusions and associated consolidations. No definite pneumothorax. Please note that chest x-ray has limited sensitivity for the detection of pulmonary masses. 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 Left-sided pacemaker. Cardiomegaly. OSSEOUS STRUCTURES: Degenerative changes of the spine and shoulders. Acromioclavicular arthropathy. VISUALIZED UPPER ABDOMEN: Unremarkable. OTHER FINDINGS: None. IMPRESSION: Right-sided PICC. Left-sided pacemaker. 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 Cardiomegaly. Moderate-sized left and small right pleural effusions with associated consolidations.
[2016-11-24 12:33] LABS: HEMATOCRIT 33.4 % (35.0-51.0); MEAN CELL VOLUME 90.3 fl (80.0-94.0); MEAN CORPUSCULAR HEMOGLOBIN 29.9 pg (27.0-31.0); MEAN CORPUSCULAR HGB CONC 33.1 g/dL (33.0-37.0); RED CELL DISTRIBUTION WIDTH 14.8 % (11.5-14.5); WHITE BLOOD COUNT 3.8 K/uL (4.8-10.8)
--- NOTE | 2016-11-24 12:34 | CP.PCM.PN ---
Subjective - Date & Time of Evaluation Date of Evaluation: 11/24/16 Time of Evaluation: 07:00 - Subjective Subjective: c diff better iv rx in progress Objective - Vital Signs/Intake and Output Vital Signs (last 24 hours): Temp Pulse Resp BP Pulse Ox 97.2 F L 72 20 122/63 97 11/24/16 10:30 11/24/16 10:30 11/24/16 10:30 11/24/16 10:30 11/24/16 10:30 Intake and Output: 11/24/16 11/24/16 06:59 18:59 Intake Total 550 Output Total 1100 1500 Balance -1100 -950 - Medications Medications: Current Medications Acetaminophen (Tylenol 650 Mg Supp) 650 mg [place] ONCE PRN PRN Reason: Pain, moderate (4-7) Albuterol (Ventolin Hfa 90 Mcg/Actuation (8 G)) 2 puff IH Q4H PRN PRN Reason: Shortness of Breath Last Admin: 11/20/16 14:42 Dose: 2 puff Albuterol/Ipratropium (Duoneb 3 Mg/0.5 Mg (3 Ml) Ud) 3 ml IH RQ6 PRN PRN Reason: Shortness of Breath Aspirin (Ecotrin) 81 mg PO DAILY [facility] Last Admin: 11/24/16 11:20 Dose: 81 mg Atorvastatin Calcium (Lipitor) 20 mg PO HS [facility] Last Admin: 11/23/16 21:57 Dose: 20 mg Cholestyramine Resin (Questran) 4 gm PO DAILY [facility] Last Admin: 11/24/16 11:00 Dose: 4 gm Duloxetine HCl (Cymbalta) 30 mg PO DAILY [facility] Last Admin: 11/24/16 10:57 Dose: 30 mg Famotidine (Pepcid) 20 mg PO BID [facility] Last Admin: 11/24/16 10:57 Dose: 20 mg Folic Acid (Folic Acid) 1 mg PO DAILY [facility] Last Admin: 11/24/16 11:00 Dose: 1 mg Home Med (Memantine Hcl [Namenda Xr]) 28 mg PO DAILY [facility] Last Admin: 11/24/16 10:58 Dose: 28 mg Vancomycin HCl 750 mg/ Sodium (Chloride) 250 mls @ 250 mls/hr IVPB Q12H [facility] Last Admin: 11/24/16 11:02 Dose: 250 mls/hr Lactobacillus Acidophilus (Bacid Acidophilus) 1 cap PO BID [facility] Last Admin: 11/24/16 10:57 Dose: 1 cap Magnesium Oxide (Mag-Ox) 400 mg PO DAILY [facility] Last Admin: 11/24/16 11:00 Dose: 400 mg Metoprolol Succinate (Toprol Xl) 50 mg PO DAILY [facility] Last Admin: 11/24/16 10:42 Dose: Not Given Nitroglycerin (Nitro-Dur 0.2 Mg/Hr Patch) 1 patch TD DAILY [facility] Last Admin: 11/24/16 11:01 Dose: 1 patch Potassium Chloride (Potassium Chloride Oral Soln) 40 meq PO DAILY [facility] Last Admin: 11/24/16 10:58 Dose: 40 meq Rifaximin (Xifaxan) 550 mg PO BID [facility] Last Admin: 11/24/16 11:01 Dose: 550 mg Tamsulosin HCl (Flomax) 0.4 mg PO HS [facility] Last Admin: 11/24/16 11:01 Dose: 0.4 mg Vancomycin HCl (Vancocin (Oral/Rectal Use)) 250 mg PO Q6H [facility] Last Admin: 11/24/16 11:02 Dose: 250 mg - Labs Labs: 11/22/16 05:30 11/22/16 05:30 PT 13.6 SECONDS (9.6-11.2) H 11/18/16 17:30 INR 1.31 (0.92-1.08) H 11/18/16 17:30 APTT 33.9 SECONDS (23.3-32.5) H 11/14/16 09:56 - Constitutional Appears: Non-toxic, Cachectic - Head Exam Head Exam: NORMOCEPHALIC - Eye Exam Eye Exam: PERRL - Neck Exam Neck Exam: absent: Lymphadenopathy - Respiratory Exam Respiratory Exam: Decreased Breath Sounds, Rhonchi - Cardiovascular Exam Cardiovascular Exam: REGULAR RHYTHM, +S1, +S2 - GI/Abdominal Exam GI & Abdominal Exam: Distended, Soft Assessment and Plan (1) Pleural effusion on left Status: Acute (2) Pulmonary infiltrate present on computed tomography Status: Acute (3) Clostridium difficile colitis Status: Acute (4) Colitis Status: Acute (5) Dehydration Status: Acute (6) MRSA (methicillin resistant Staphylococcus aureus) infection Status: Acute
[2016-11-24 12:46] LABS: BLOOD UREA NITROGEN 4 mg/dl (9-20); CALCIUM 8.3 mg/dL (8.4-10.2); CARBON DIOXIDE 28 mmol/L (22-30); CHLORIDE 103 mmol/L (98-107); GFR AFRICAN-AMERICAN > 60; GLUCOSE,RANDOM 142 mg/dL (75-110); POTASSIUM 5.1 MMOL/L (3.6-5.0); SODIUM 140 mmol/l (132-148)
[2016-11-24 17:04] VITALS: O2SAT 100
[2016-11-25] MEDS: Vancomycin 500 mg (Oral/Rectal USE) PO SCH ×2 (04:50→13:22)
[2016-11-25 05:40] LABS: BLOOD UREA NITROGEN 6 mg/dl (9-20); CALCIUM 8.3 mg/dL (8.4-10.2); CARBON DIOXIDE 31 mmol/L (22-30); CHLORIDE 103 mmol/L (98-107); GFR AFRICAN-AMERICAN > 60; GLUCOSE,RANDOM 90 mg/dL (75-110); POTASSIUM 4.1 MMOL/L (3.6-5.0); SODIUM 142 mmol/l (132-148)
[2016-11-25 08:35] VITALS: BP 124/66; TEMP 97.9
--- NOTE | 2016-11-25 09:29 | CP.PCM.DIS ---
Provider - Provider Date of Admission: 11/13/16 18:55 Attending physician: Yash Mccloud MD Primary care physician: Curtis Brown MD Time Spent in preparation of Discharge (in minutes): 45 Diagnosis - Discharge Diagnosis (1) Colitis Status: Acute Comment: BMs have improved, Vancomycin vs. Rifaximin (2) Pleural effusion on left Status: Acute Priority: High Comment: residual pleural effusion, however cytology negative for malignant cells, culture negative, CPT and mucinex (3) UTI (urinary tract infection) Status: Acute Comment: Resolved, f/u outpatient for TURP (4) Hepatitis C antibody test positive Status: Acute (5) CAD (coronary artery disease) Status: Chronic Comment: Stable (6) COPD (chronic obstructive pulmonary disease) Status: Chronic Comment: stable (7) Dementia Status: Chronic Comment: stable (8) BPH (benign prostatic hypertrophy) Status: Chronic Comment: f/u for TURP as outpatient Hospital Course - Lab Results Lab Results: Micro Results 11/24/16 09:45 Bronchial Washings Gram Stain - Final 11/17/16 13:20 Pleural Fluid Gram Stain - Final 11/17/16 13:20 Pleural Fluid Body Fluid Culture - Final No growth. 11/18/16 13:00 Urine,Suprapubic Urine Culture - Final No Growth (<1,000 CFU/ML) 11/13/16 19:00 Blood Blood Culture - Final NO GROWTH AFTER 5 DAYS 11/13/16 19:00 Blood Gram Stain - Final TEST NOT PERFORMED Most Recent Lab Values WBC 3.8 K/uL (4.8-10.8) L 11/24/16 12:23 RBC 3.70 Mil/uL (4.40-5.90) L 11/24/16 12:23 Hgb 11.0 g/dL (12.0-18.0) L 11/24/16 12:23 Hct 33.4 % (35.0-51.0) L 11/24/16 12:23 MCV 90.3 fl (80.0-94.0) 11/24/16 12:23 MCH 29.9 pg (27.0-31.0) 11/24/16 12:23 MCHC 33.1 g/dL (33.0-37.0) 11/24/16 12:23 RDW 14.8 % (11.5-14.5) H 11/24/16 12:23 Plt Count 124 K/uL (130-400) L 11/24/16 12:23 MPV 9.0 fl (7.2-11.7) 11/20/16 07:50 Neut % (Auto) 77.7 % (50.0-75.0) H 11/20/16 07:50 Lymph % (Auto) 12.6 % (20.0-40.0) L 11/20/16 07:50 [place] % (Auto) 5.6 % (0.0-10.0) 11/20/16 07:50 Eos % (Auto) 3.6 % (0.0-4.0) 11/20/16 07:50 Baso % (Auto) 0.5 % (0.0-2.0) 11/20/16 07:50 Neut # 3.2 K/uL (1.8-7.0) 11/20/16 07:50 Lymph # 0.5 K/uL (1.0-4.3) L 11/20/16 07:50 [place] # 0.2 K/uL (0.0-0.8) 11/20/16 07:50 Eos # 0.1 K/uL (0.0-0.7) 11/20/16 07:50 Baso # 0.0 K/uL (0.0-0.2) 11/20/16 07:50 Neutrophils % (Manual) 87 % (42-75) H 11/19/16 06:30 Band Neutrophils % 5 % (0-2) H 11/19/16 06:30 Lymphocytes % (Manual) 4 % (20-50) L 11/19/16 06:30 Reactive Lymphs % 1 % (0-0) H 11/19/16 06:30 Monocytes % (Manual) 2 % (0-10) 11/19/16 06:30 Metamyelocytes % 1 % (0-0) H 11/19/16 06:30 Platelet Estimate Decreased (NORMAL) L 11/19/16 06:30 Hypochromasia (manual) Slight 11/19/16 06:30 Anisocytosis (manual) Slight 11/19/16 06:30 ESR 42 mm/hr (0-20) H 11/14/16 06:05 PT 13.6 SECONDS (9.6-11.2) H 11/18/16 17:30 INR 1.31 (0.92-1.08) H 11/18/16 17:30 APTT 33.9 SECONDS (23.3-32.5) H 11/14/16 09:56 pCO2 35 mm/Hg (35-45) 11/18/16 17:15 pO2 76 mm/Hg (80-100) L 11/18/16 17:15 HCO3 22.4 mmol/L (21-28) 11/18/16 17:15 ABG pH 7.39 (7.35-7.45) 11/18/16 17:15 ABG Total CO2 22.3 mmol/L (22-28) 11/18/16 17:15 ABG O2 Saturation 98.7 % (95-98) H 11/18/16 17:15 ABG O2 Content 19.4 ML/dL (15-23) 11/18/16 17:15 ABG Base Excess -3.1 mmol/L (-2.0-3.0) L 11/18/16 17:15 ABG Hemoglobin 14.7 g/dL (11.7-17.4) 11/18/16 17:15 ABG Carboxyhemoglobin 3.0 % (0.5-1.5) H 11/18/16 17:15 POC ABG HHb (Measured) 1.2 % (0.0-5.0) 11/18/16 17:15 ABG Methemoglobin 1.9 % (0.0-3.0) 11/18/16 17:15 ABG O2 Capacity 19.7 mL/dL (16-24) 11/18/16 17:15 Willam Test Yes 11/18/16 17:15 A-a O2 Difference 80.0 mm/Hg 11/18/16 17:15 Hgb O2 Saturation 93.9 % (95.0-98.0) L 11/18/16 17:15 FiO2 28.0 % 11/18/16 17:15 Crit Value Called By 333 11/18/16 17:15 Blood Gas Notified Time 1720 11/18/16 17:15 Sodium 142 mmol/l (132-148) 11/25/16 04:35 Potassium 4.1 MMOL/L (3.6-5.0) 11/25/16 04:35 Chloride 103 mmol/L (98-107) 11/25/16 04:35 Carbon Dioxide 31 mmol/L (22-30) H 11/25/16 04:35 Anion Gap 12 (10-20) 11/25/16 04:35 BUN 6 mg/dl (9-20) L 11/25/16 04:35 Creatinine 0.7 mg/dL (0.8-1.5) L 11/25/16 04:35 Est GFR ( Amer) > 60 11/25/16 04:35 Est GFR (Non-Af Amer) > 60 11/25/16 04:35 Random Glucose 90 mg/dL (75-110) 11/25/16 04:35 Lactic Acid 1.0 MMOL/L (0.7-2.1) 11/19/16 07:00 Calcium 8.3 mg/dL (8.4-10.2) L 11/25/16 04:35 Phosphorus 3.0 mg/dl (2.5-4.5) 11/21/16 11:15 Magnesium 1.9 MG/DL (1.6-2.3) 11/22/16 05:30 Total Bilirubin 0.2 mg/dl (0.2-1.3) 11/20/16 07:50 AST 33 U/L (17-59) 11/20/16 07:50 ALT 17 U/L (21-72) L 11/20/16 07:50 Alkaline Phosphatase 62 U/L (38-126) 11/20/16 07:50 CK-MB (Mass) 0.56 ng/mL (0.0-3.38) 11/18/16 17:30 Troponin I 0.0570 ng/mL (0.00-0.120) 11/19/16 08:53 Total Protein 4.9 G/DL (6.3-8.2) L 11/20/16 07:50 Albumin 2.2 g/dL (3.5-5.0) L 11/20/16 07:50 Globulin 2.7 gm/dL (2.2-3.9) 11/20/16 07:50 Albumin/Globulin Ratio 0.8 (1.0-2.1) L 11/20/16 07:50 Procalcitonin 0.40 NG/ML (0.19-0.49) 11/19/16 07:00 Urine Color Yellow (YELLOW) 11/18/16 13:00 Urine Clarity Clear (Clear) 11/18/16 13:00 Urine pH 6.0 (5.0-8.0) 11/18/16 13:00 Ur Specific [place] 1.014 (1.003-1.030) 11/18/16 13:00 Urine Protein 30 mg/dL (NEGATIVE) 11/18/16 13:00 Urine Glucose (UA) Neg mg/dL (Normal) 11/18/16 13:00 Urine Ketones Negative mg/dL (NEGATIVE) 11/18/16 13:00 Urine Blood Negative (NEGATIVE) 11/18/16 13:00 Urine Nitrate Negative (NEGATIVE) 11/18/16 13:00 Urine Bilirubin Negative (NEGATIVE) 11/18/16 13:00 Urine Urobilinogen 0.2-1.0 mg/dL (0.2-1.0) 11/18/16 13:00 Ur Leukocyte Esterase Small Han/uL (Negative) 11/18/16 13:00 Urine RBC (Auto) 2 /hpf (0-3) 11/18/16 13:00 Urine Microscopic WBC 9 /hpf (0-5) H 11/18/16 13:00 Urine Bacteria Occ (<OCC) H 11/13/16 17:00 Hyaline Casts 0-2 /hpf (0-2) 11/18/16 13:00 Urine Yeast (Budding) Few /hpf (NEGATIVE) H 11/13/16 17:00 Fluid Source Pleural 11/17/16 13:20 Fluid Appearance Clear (CLEAR) 11/17/16 13:20 Fluid WBC 545.0 /mm3 (0.0-300.0) H 11/17/16 13:20 Fluid RBC 267.0 /mm3 (0.0-0.0) H 11/17/16 13:20 Fluid Tot Cell Count 100 (0-0) H 11/17/16 13:20 Fluid Neutrophils 3.0 % (0-0) H 11/17/16 13:20 Fluid Lymphocytes 96.0 % (0-0) H 11/17/16 13:20 Fld Monocyte/Macrophag 1 % (0-0) H 11/17/16 13:20 Fluid Glucose 91 mg/dL (NONE ESTABLISHED) 11/17/16 13:20 Fluid Total Protein 2.7 g/dL (NONE ESTABLISHED) 11/17/16 13:20 Fluid LDH 308 IU (NONE ESTABLISHED) 11/17/16 13:20 Fluid Comment Pale yellow 11/17/16 13:20 Stl Cryptosporidium Ag TNP 11/18/16 14:00 Vancomycin Trough 21.6 ug/mL (5.0-10.0) H 11/24/16 12:23 C. difficile Ag & Toxin Negative (NEGATIVE) 11/23/16 15:00 Cryptosp/[place] Source Stool (()) 11/18/16 14:00 Hep Bs Antigen Negative (NEGATIVE) 11/18/16 11:10 Hepatitis C Antibody Reactive (NEGATIVE) H 11/18/16 11:10 HIV 1&2 Antibody Screen Negative (NEGATIVE) 11/18/16 11:10 - Hospital Course Hospital Course: 81M admitted for treatment of recurrent c. diff colitis and UTI which has resolved. Incidental finding of LEFT pleural effusion negative for infectious/ malignant etiology, however bronchoscopy by Dr Beltre shows chronic narrowing that may cause recurrent infection. Dr Beltre (Pulmonary), Dr Pickering (GI), Dr Sharma (Cardiology), Dr Sagastume (ID), Dr York (Urology), Dr Martínez (IR) for co-management. Patient is now stable at baseline and ready for discharge. Discharge Exam - Head Exam Head Exam: ATRAUMATIC, NORMOCEPHALIC - Eye Exam Eye Exam: EOMI, Normal appearance - ENT Exam ENT Exam: Mucous Membranes Moist, Normal Exam - Respiratory Exam Respiratory Exam: Decreased Breath Sounds (LEFT), NORMAL BREATHING PATTERN. absent: Rales - Cardiovascular Exam Cardiovascular Exam: absent: JVD - GI/Abdominal Exam GI & Abdominal Exam: Normal Bowel Sounds, Soft. absent: Tenderness - Extremities Exam Extremities exam: normal capillary refill, pedal pulses present - Neurological Exam Neurological exam: Alert - Psychiatric Exam Psychiatric exam: Normal Affect - Skin Skin Exam: Normal Color, Warm Discharge Plan - Discharge Medications Prescriptions: guaiFENesin [Mucinex LA] 600 mg PO Q12 #30 tab Vancomycin [Vancocin (Oral/Rectal USE)] 250 mg PO Q6H #40 soln rifAXIMin [Xifaxan] 550 mg PO BID #20 tab - Follow Up Plan Condition: FAIR Disposition: HOME/ ROUTINE Instructions: How to Care for Your Suprapubic Catheter (DC), Clostridium Difficile Infection (DC) Additional Instructions: As tolerated Take yogurt BID Referrals: Curtis Brown MD [Primary Care Provider] -
[2016-11-25] MEDS: Magnesium Oxide 400 mg Tab UD PO SCH (09:46)
[2016-11-25] MEDS: Nitroglycerin 0.2 mg/hr Top Patch TD SCH (09:47)
[2016-11-25] MEDS: Potassium Chloride 20 mEq/15 ml LIQ UD PO SCH (09:47)
[2016-11-25] MEDS: Cholestyramine 4 gm/Pkt UD PO SCH (09:48)
[2016-11-25] MEDS: Metoprolol Succinate 50 mg XL Tab PO SCH (09:48)
[2016-11-25] MEDS: Lactobacillus Acidophilus 500 MU Cap PO SCH (09:58)
--- NOTE | 2016-11-25 10:14 | CP.PCM.PN ---
Subjective - Date & Time of Evaluation Date of Evaluation: 11/25/16 Time of Evaluation: 10:11 - Subjective Subjective: Stable post bronchoscopy. Vital signs remain stable. CXR shows persistent left basal pleural fluid. Labs from thoracentesis unremarkable on culture and cytology. Discussed continued care with his daughter using CPT with flutter valve device and guaifenesin as outpatient. For discharge today and TURP tentatively planned for Thursday. Objective - Vital Signs/Intake and Output Vital Signs (last 24 hours): Temp Pulse Resp BP Pulse Ox 97.9 F 70 20 124/66 100 11/25/16 08:34 11/25/16 09:48 11/25/16 08:34 11/25/16 09:48 11/25/16 08:34 Intake and Output: 11/24/16 11/25/16 23:59 11:59 Output Total 1100 800 Balance -1100 -800 - Medications Medications: Current Medications Acetaminophen (Tylenol 650 Mg Supp) 650 mg VT ONCE PRN PRN Reason: Pain, moderate (4-7) Albuterol (Ventolin Hfa 90 Mcg/Actuation (8 G)) 2 puff IH Q4H PRN PRN Reason: Shortness of Breath Last Admin: 11/20/16 14:42 Dose: 2 puff Albuterol/Ipratropium (Duoneb 3 Mg/0.5 Mg (3 Ml) Ud) 3 ml IH RQ6 PRN PRN Reason: Shortness of Breath Aspirin (Ecotrin) 81 mg PO DAILY [facility] Last Admin: 11/25/16 09:46 Dose: 81 mg Atorvastatin Calcium (Lipitor) 20 mg PO HS [facility] Last Admin: 11/24/16 21:36 Dose: 20 mg Cholestyramine Resin (Questran) 4 gm PO DAILY [facility] Last Admin: 11/25/16 09:48 Dose: 4 gm Duloxetine HCl (Cymbalta) 30 mg PO DAILY [facility] Last Admin: 11/25/16 09:45 Dose: 30 mg Famotidine (Pepcid) 20 mg PO BID [facility] Last Admin: 11/25/16 09:47 Dose: 20 mg Folic Acid (Folic Acid) 1 mg PO DAILY [facility] Last Admin: 11/25/16 09:46 Dose: 1 mg Guaifenesin (Mucinex La) 600 mg PO Q12 [facility] Home Med (Memantine Hcl [Namenda Xr]) 28 mg PO DAILY [facility] Last Admin: 11/25/16 09:50 Dose: 28 mg Vancomycin HCl 750 mg/ Sodium (Chloride) 250 mls @ 250 mls/hr IVPB Q12H [facility] Last Admin: 11/24/16 11:02 Dose: 250 mls/hr Lactobacillus Acidophilus (Bacid Acidophilus) 1 cap PO BID [facility] Last Admin: 11/25/16 09:58 Dose: 1 cap Magnesium Oxide (Mag-Ox) 400 mg PO DAILY [facility] Last Admin: 11/25/16 09:46 Dose: 400 mg Metoprolol Succinate (Toprol Xl) 50 mg PO DAILY [facility] Last Admin: 11/25/16 09:48 Dose: 50 mg Nitroglycerin (Nitro-Dur 0.2 Mg/Hr Patch) 1 patch TD DAILY [facility] Last Admin: 11/25/16 09:47 Dose: 1 patch Potassium Chloride (Potassium Chloride Oral Soln) 40 meq PO DAILY [facility] Last Admin: 11/25/16 09:47 Dose: 40 meq Rifaximin (Xifaxan) 550 mg PO BID [facility] Last Admin: 11/25/16 09:49 Dose: 550 mg Tamsulosin HCl (Flomax) 0.4 mg PO HS [facility] Last Admin: 11/24/16 22:00 Dose: Not Given Vancomycin HCl (Vancocin (Oral/Rectal Use)) 250 mg PO Q6H [facility] Last Admin: 11/25/16 04:50 Dose: 250 mg - Labs Labs: 11/24/16 12:23 11/25/16 04:35 PT 13.6 SECONDS (9.6-11.2) H 11/18/16 17:30 INR 1.31 (0.92-1.08) H 11/18/16 17:30 APTT 33.9 SECONDS (23.3-32.5) H 11/14/16 09:56 Assessment and Plan (1) Pleural effusion on left Status: Acute (2) Pulmonary infiltrate present on computed tomography Status: Acute
[2016-11-25] MEDS ORDERED: guaiFENesin 600 mg ER Tab PO SCH (10:15)
[2016-11-25 10:58] VITALS: PULSE 82
== END 2016-11-25 14:21 | disposition home or self-care (01) | DRG 371 ==
LOC: H.ER 14:03 → H.ERHOLD 18:55 → H.MEDSURG1 20:33 → H.TEL 11-18 17:36 → H.MEDSURG1 11-20 11:53
PROVIDERS: ADMIT Family Medicine; ATTEND Family Medicine
PROC: 0W9B3ZZ Drainage of Left Pleural Cavity, Percutaneous Approach (ICD-10-PCS; principal; 2016-11-17)
PROC: 02HV33Z Insertion of Infusion Device into Superior Vena Cava, Percutaneous Approach (ICD-10-PCS; 2016-11-19)
PROC: B548ZZA Ultrasonography of Superior Vena Cava, Guidance (ICD-10-PCS; 2016-11-19)
PROC: 0BBB8ZX Excision of Left Lower Lobe Bronchus, Via Natural or Artificial Opening Endoscopic, Diagnostic (ICD-10-PCS; 2016-11-25)
DX: A04.7 Enterocolitis due to Clostridium difficile (principal); J18.9 Pneumonia, unspecified organism; J90 Pleural effusion, not elsewhere classified; J44.0 Chronic obstructive pulmonary disease with (acute) lower respiratory infection; F03.90 Unspecified dementia, unspecified severity, without behavioral disturbance, psychotic disturbance, mood disturbance, and anxiety; B17.10 Acute hepatitis C without hepatic coma; I48.91 Unspecified atrial fibrillation; K74.60 Unspecified cirrhosis of liver; N39.0 Urinary tract infection, site not specified; E86.0 Dehydration; J98.11 Atelectasis; Z95.1 Presence of aortocoronary bypass graft; R33.9 Retention of urine, unspecified; Z95.810 Presence of automatic (implantable) cardiac defibrillator; E78.5 Hyperlipidemia, unspecified; H91.90 Unspecified hearing loss, unspecified ear; F17.210 Nicotine dependence, cigarettes, uncomplicated; I25.10 Atherosclerotic heart disease of native coronary artery without angina pectoris; N40.0 Benign prostatic hyperplasia without lower urinary tract symptoms; B95.62 Methicillin resistant Staphylococcus aureus infection as the cause of diseases classified elsewhere; R07.9 Chest pain, unspecified; Z87.01 Personal history of pneumonia (recurrent); I25.5 Ischemic cardiomyopathy; I20.9 Angina pectoris, unspecified; I10 Essential (primary) hypertension; Z88.3 Allergy status to other anti-infective agents; Z88.0 Allergy status to penicillin; K76.89 Other specified diseases of liver

== ENCOUNTER 2016-11-28 06:02 | Day surgery (SDC) | payer MEDICARE, OTHER ==
[2016-11-28 06:12] VITALS: BMI 25.0
[2016-11-28] MEDS ORDERED: Metoprolol Succinate 50 mg XL Tab PO ONE (06:50)
[2016-11-28] MEDS ORDERED: Phenylephrine 10 mg/ml Inj ONE (07:04)
[2016-11-28] MEDS ORDERED: Etomidate 20 mg/10ml Inj IV ONE (07:05)
[2016-11-28] MEDS ORDERED: Succinylcholine 200 mg/10 ml Inj IV ONE (07:05)
[2016-11-28] MEDS ORDERED: Propofol 10 mg/ml Inj (20 ML) ONE (07:12)
[2016-11-28] MEDS ORDERED: ePHEDrine 50 mg/ml Inj ONE (07:13)
[2016-11-28] MEDS ORDERED: Sevoflurane - Inhalation Anesthetic Liq (250 ml) ONE (07:34)
[2016-11-28 08:03] LABS: PARTIAL THROMBOPLASTIN TIME 25.9 SECONDS (23.3-32.5)
[2016-11-28] MEDS ORDERED: Esmolol 100 mg/10ml Inj IV ONE (08:49)
[2016-11-28] MEDS ORDERED: Lactated Ringer's 1,000 ML IV ONE (08:55)
[2016-11-28] MEDS ORDERED: Metoprolol Succinate 50 mg XL Tab PO SCH (09:00)
[2016-11-28] MEDS ORDERED: Clindamycin 300 mg/2 ml Inj IVPB ONE (09:10)
[2016-11-28] MEDS ORDERED: Rocuronium 10 mg/ml (5 ml) ONE (09:14)
[2016-11-28] MEDS ORDERED: Neostigmine Methylsulfate 2 MG/2 ML ML IV ONE (09:50)
--- NOTE | 2016-11-28 11:55 | OP ---
PROCEDURE DATE: 11/28/2016 PREOPERATIVE DIAGNOSIS: Urinary retention. POSTOPERATIVE DIAGNOSIS: Urinary retention. PROCEDURE PERFORMED: GreenLight laser of the prostate. The patient in the operating room in a dorsal lithotomy position. The area of the groin was draped a nd prepped in a sterile manner. Under direct vision with a laser scope, I entered into the bladder a traumatically. I identified the margins of the prostatic growth, could identify the ureteral orifice s bilaterally and the verumontanum was clearly visualized. He has heavy trabeculation through most o f the bladder wall. I then started at 80 redding of power and ended at a total of 180 redding of power t o reduce the adenoma. Once this was done and there was a clear opening from the veru, which was circ umferentially intact, into the bladder, I then removed the resectoscope and inserted a #22 three-way Garza catheter. I estimated blood loss to be less than 20 mL during the procedure. The patient was taken from the operating room stable and in good condition. Omkar York MD cc: 48 TT: 11/28/2016 11:54:28 en
--- NOTE | 2016-11-28 12:07 | DS ---
The patient was admitted today for elective GreenLight laser of the prostate. He underwent an uneven tful procedure. Postoperatively, the urine is clear in recovery. He appears to be stable. He will be discharged home with a prescription for Bactrim DS and Pyridium. He will follow in my office on t he third day postop to remove the Garza catheter. Omkar York MD cc: 48 TT: 11/28/2016 12:06:31 tn
[2016-11-28 12:10] VITALS: RESP 18
[2016-11-28 12:29] VITALS: PULSE 65
[2016-11-28 13:13] VITALS: BP 121/52; TEMP 98.2; O2SAT 94
--- NOTE | 2016-11-28 18:05 | CARD ---
APPROVED REPORT EKG Measurement Heart [id number] AL 200P [id number] <Conclusion> Atrial-paced rhythm with premature atrial complexes Abnormal ECG
== END 2016-11-28 13:51 | disposition home or self-care (01) ==
LOC: H.OPSURG 06:02
PROVIDERS: ATTEND Urology
DX: N40.0 Benign prostatic hyperplasia without lower urinary tract symptoms (principal); I48.91 Unspecified atrial fibrillation; I25.10 Atherosclerotic heart disease of native coronary artery without angina pectoris; J44.9 Chronic obstructive pulmonary disease, unspecified; F17.210 Nicotine dependence, cigarettes, uncomplicated
CPT/HCPCS: 36415; 52649; 85610; 85730; 93005; J0330; J0360; J2001; J2370; J2704; J2710; J3010; J7120